=== PATIENT | female | born 1935 | race Caucasian/White ===

== ENCOUNTER 2021-02-23 03:51 | Outpatient (CLI) | payer MEDICARE, BC, SELFPAY ==
--- NOTE | 2021-02-23 | DI.CT_ITS ---
Exam(s) CT LOWER EXTREMITY RT WO EXAM: CT LOWER EXTREMITY RT WO CLINICAL HISTORY: S/P RT TOTAL KNEE ARTHROPLASTY,? QUAD TENDON RUPTURE OR PATELLAR BUTTON DIS. TECHNIQUE: Imaging Protocol: Axial computed tomography images with coronal and sagittal reformatted images were created and reviewed. COMPARISON: CR XR KNEE STANDING ALIGNMENT AP LAT SKYLINE RIGHT from 12/20/2020 CR XR KNEE STANDING ALIGNMENT AP LAT SKYLINE RIGHT from 12/20/2020 FINDINGS: The patient has a total knee replacement which causes artifact. This does limit the examination. Bones: The distal femur proximal tibia and fibula appear intact. No lucencies are seen in or about the orthopedic hardware to suggest loosening. There are ossified density seen adjacent to the latera l femur. The largest fragment measures 2 x 0.7 cm. There is some irregularity of the cortex of the superior and lateral patella. This may be the donor site. Bony alignment is satisfactory. No cellu litic or osteomyelitic changes are identified. No lytic or sclerotic lesions are identified. Soft Tissues: The quadriceps tendon appears to be thickened. A partial tear, however cannot be excl uded. Atherosclerosis. IMPRESSION: 1. Suboptimal examination due to artifact from the patient's total knee replacement. 2. Densities adjacent to the lateral femur. These may be fracture fragments. There is some irregula rity of the cortex of the superior lateral patella. This may be the donor site for the fragments. 3. Thickening of the quadriceps tendon. A partial tear cannot be excluded. RADIATION DOSE DELIVERED: 464.95mGy.cm Total DLP 464.95mGy.cm Total DLP DATA REPOSITORY: All CT scans at this facility are submitted to the National Radiology Data Registry (NRDR) Dose Index Registry (DIR) with the [employer] ([employer]). RADIATION OPTIMIZATION: All CT scans at this facility use at least one of these dose optimization te chniques: automated exposure control; mA and/or kV adjustment per patient size (includes targeted exa ms where dose is matched to clinical indication); or iterative reconstruction.
== END 2021-02-23 04:11 ==
PROVIDERS: PCP Family Medicine; Visit Provider Orthopaedic Surgery
DX: S86.911A Strain of unspecified muscle(s) and tendon(s) at lower leg level, right leg, initial encounter; Z96.651 Presence of right artificial knee joint; X58.XXXA Exposure to other specified factors, initial encounter
CPT/HCPCS: 73700

== ENCOUNTER 2021-03-27 00:42 | Outpatient (CLI) | payer MEDICARE, BC, SELFPAY ==
--- OUTSIDE RECORDS SUMMARY | 2021-03-27 00:47 | XMS_ITS ---
:1935 Author Care Team Providers Name Role Phone NIK ENRIQUEZ RN Care Manager Unavailable JUNITO HOLLIDAY Primary Care Provider [phone] AUGUST HOSKINS MD General Surgeon [phone] CHRISTIE LARSON MD General Surgeon [phone] ANNIE GREEN MD Watch [employer] [phone] Allergies Code Code System Name Reaction Severity Status Onset 2670 RxNorm Codeine ? ? Active 11/17/2017 14122 RxNorm Lisinopril Cough ? Active 8 736281 RxNorm Vicodin Edema ? Active 11/17/2017 5489 RxNorm Hydrocodone Edema ? Active ? 28184 RxNorm Tramadol Diarrhea ? Active ? Notes: no seafood or contrast al lergy Medications Name Status Start Date Stop Date ? ? acetaminophen 300 mg-codeine 30 mg tablet Completed ? 11/21/2020 Take 1 tablet 4 times a day by oral route as needed for 30 days . acetaminophen 325 mg tablet Completed 05/31/202011/04 Take 650 mg every 6 hours by oral route as needed. acetaminophen 500 mg tablet Completed ? 12/06 Take 2 tablets every 8 hours by oral route. amlodipine 5 mg tablet Active 01/02/2021 Not avail able 1 (one) Tablet: daily amoxicillin 875 mg tablet Completed 10/10/20162016 1 (one) Tablet: bid - twice daily Antacid Anti-Gas 200 mg-200 mg-20 mg/5 mL oral suspension Comple taylor 07/21/2019 07/03/2020 Take 30 mL every 6 hours by oral route as needed. Anusol-HC 25 mg rectal suppository Completed 01/02/2016 02/12/2016 1 (one) Suppository: See comments aspirin 81 mg chewable tablet Active 12/29/2020 No t available Chew 1 tablet every day by oral route. atorvastatin 40 mg tablet Completed 01/25/20192018 Take 40 mg every 24 hours by oral route. azithromycin 500 mg tablet Completed ? 01/20 Bactrim DS 800 mg-160 mg tablet Completed 08/22/2011 08/22/2011 1 Tablet: two times daily [place] Montes U-100 Insulin 100 unit/mL (3 mL) subcutaneo us Active 12/29/2020 Not available Inject 18 units every day by subcutaneous route in the evening. BD Ultra-Fine Asia Pen Needle 32 Completed ? 03/13/2019 gauge x 5/32 bisoprolol fumarate 5 mg tablet Completed 07/02/2013 07/16/2013 1 Tablet: daily a week before and after surgery. Blood Glucose Test strips Active ? Not av ailable Take 1 strip twice a day by miscell. route. Byetta 5 mcg/dose (250 mcg/mL)1.2 Active ? Not available mL subcutaneous pen injector carvedilol 3.125 mg tablet Completed 01/25/201903/13 Take 3.125 mg twice a day by oral route. carvedilol 6.25 mg tablet Active 12/29/2020 Not av ailable 1 tablet every day by oral route. cefpodoxime 200 mg tablet Completed 12/29/20202020 Take 1 tablet twice a day by oral route for 7 days. cephalexin 500 mg capsule Completed ? 2017 cholestyramine (with sugar) 4 gram Completed ? 01/20/2018 powder for susp in a packet Cinnamon 500 mg capsule Completed ? 11/22/19 Take 1 capsule twice a day by oral route. cinnamon bark Completed ? 11/22/2020 500 mg ciprofloxacin 250 mg tablet Completed ? 08/2019 ciprofloxacin 500 mg tablet Completed ? 03/09 coenzyme Q10 Completed ? 11/22/2020 10 mg Colace 100 mg capsule Completed 01/25/2019 03/13/2019 Take 100 mg twice a day by oral route. Cranberry Concentrate 500 mg capsule Completed 09/11/2016 02/20/2017 1 (one) Milligram Milligram: daily cyanocobalamin (vit B-12) 500 mcg chewable tablet Active 12/29/2020 Not available Take 1 tablet every day by oral route for 30 days. cyanocobalamin (vit B-12) 500 mcg tablet Completed ? 02/12/2021 TAKE 1 TABLET BY MOUTH DAILY cyanocobalamin (vitamin B-12) 1,000 mcg capsule Completed 11/21/2020 11/21/2020 Take by oral route. dexamethasone 4 mg tablet Completed 05/02/20162015 Tablet: qd - daily Dificid 200 mg tablet Completed 07/30/2016 08/09/2016 1 (one) Tablet: bid - twice daily Ecotrin Low Strength 81 mg tablet,enteric coated Completed 07/21/2019 11/21/2020 Take 81 mg every day by oral route. Enteric Coated Eliquis 2.5 mg tablet Completed ? 12/29/2020 Take 1 tablet twice a day by oral route. enoxaparin 100 mg/mL subcutaneous syringe Completed 201608/15/2016 1 (one) Milliliter: bid - twice daily Euthyrox 112 mcg tablet Completed ? 05/31/20 20 ferrous sulfate 324 mg (65 mg iron) tablet,delayed release Activ e 12/29/2020 Not available Take 2 tablets 3 times a week by oral route. ferrous sulfate 325 mg (65 mg iron) tablet Completed ? 02/21/2020 Using just Chlorophyll QOD because couldn't tolerate this. ferrous sulfate 325 mg (65 mg iron) tablet,delayed release Compl eted 12/18/2016 06/16/2017 1 (one) Tablet Tablet: qd - daily Flonase 50 mcg/actuation nasal spray,suspension Completed 07/01/2013 07/01/2013 1-2 Puff(s): daily to QoD in each nostril Florastor 250 mg capsule Active 12/29/2020 Not jak ilable Take 1 capsule every day by oral route. folic acid 1 mg tablet Active ? Not avail able TAKE 1 TABLET BY MOUTH DAILY furosemide 20 mg tablet Completed ? 09/28/19 20 gabapentin 100 mg capsule Completed 11/21/20202020 1 capsule po in AM and 3 caps in the evening and at HS gabapentin 300 mg capsule Completed ? 2020 glimepiride 2 mg tablet Completed 09/17/2017 09/25/19 18 1 (one) Tablet: with first meal of the day Hyalgan 10 mg/mL intra-articular syringe Completed ? 01/20/2018 Inject 2.5 mL by intra-articular route for 35 days. hydrochlorothiazide 25 mg tablet Completed ? 12/29/2020 TAKE 1 TABLET BY MOUTH EVERY MORNING hydrocodone 10 mg-acetaminophen Completed ? 01/25/2019 325 mg tablet hydrocodone 5 mg-acetaminophen 325 mg tablet Completed 06/201310/16/2012 2 (two) Tablet: every four to six hours as needed hydroxyzine HCl 10 mg tablet Active 12/29/2020 Not available Take 1 tablet twice a day by oral route as needed. hydroxyzine HCl 25 mg tablet Completed ? 1 daily Hyzaar 100 mg-25 mg tablet Completed 11/21/201505/06 1 (one) Tablet: daily ibuprofen 600 mg tablet Completed 04/12/2014 02/12/20 16 1 (one) Tablet Tablet: bid - twice daily indomethacin 25 mg capsule Completed ? 07/21 Klor-Con M10 mEq tablet,extended release Completed 016 05/06/2016 1 (one) Tablet: bid - twice daily or as directed later potassium chloride ER 20 mEq Active ? Not available tablet,extended release(part/cryst) lactulose 10 gram/15 mL oral solution Active 01/18/2021 Not available Take 15 mL every day by oral route. lancets Completed ? 11/21/2020 E11.65 1 new lancet to use 3 times ajit Garcia for generic or whatever patient's insurance will cover levothyroxine 100 mcg tablet Active ? Not available Take 1 tablet every day by oral route for 90 days. levothyroxine 150 mcg tablet Completed ? levothyroxine 200 mcg tablet Completed ? 12/2017 TAKE ONE (1) TABLET ONCE A DAY levothyroxine 75 mcg tablet Completed 12/29/202002/04 Take 1 tablet every day by oral route. Levoxyl 88 mcg tablet Completed 01/25/2019 03/13/2019 Take 88 micrograms every day by oral route. magnesium 400 mg (as magnesium oxide) tablet Completed ? 11/21/2020 Take 2 tablets every day by oral route. meloxicam 7.5 mg tablet Completed ? 02/21/20 20 metformin 1,000 mg tablet Active ? Not av ailable metformin ER 500 mg tablet,extended release 24 hr Active ? Not available TAKE 1 TABLET BY MOUTH DAILY Miralax 17 gram oral powder packet Completed 01/25/2019 02/09/2019 Take 17 g every 24 hours by oral route. Miralax 17 gram/dose oral powder Active 12/29/2020 Not available Take 17 g twice a day by oral route as needed. Nexium 40 mg capsule,delayed release Completed 07/01/2013 07/01/[address]: daily nystatin (bulk) 10 billion unit powder Completed ? 12/29/2020 apply to abdominal fold every 8 hours as needed nystatin 100,000 unit/gram topical cream Active 021 Not available Apply 1 application twice a day by topical route. nystatin 100,000 unit/gram topical ointment Completed 08/200901/04/2010 1 (one) Applicator(s): two times daily, as needed Nystop 100,000 unit/gram topical powder Completed 01/26/20 19 02/09/2019 Apply 1 application 3 times a day by topical route. apply to groin region omeprazole 20 mg capsule,delayed release Completed ? 12/29/2020 Take 1 capsule every day by oral route. omeprazole 40 mg capsule,delayed release Active 021 Not available Take 1 capsule every day by oral route. ondansetron 4 mg disintegrating tablet Completed 0 02/21/2020 Take 1 tablet 3 times a day by oral route as needed for 3 days. ondansetron HCl 8 mg tablet Completed 09/11/201602/06 half - 1 Tablet: every six hours, as needed nausea oxycodone 10 mg tablet Completed ? 0 oxycodone 5 mg capsule Completed ? 9 Take 1 capsule every 6 hours by oral route as needed for 10 day s. oxycodone 5 mg tablet Active ? Not availa ble Take 1 tablet every 6 hours by oral route for 28 days. pantoprazole 40 mg tablet,delayed release Completed 201505/28/2016 1 (one) Tablet: daily Prilosec OTC 20 mg tablet,delayed release Completed 200901/04/2010 1 (one) Tablet DR: as needed Probiotic Completed ? 12/29/2020 1 tab daily promethazine 25 mg tablet Active ? Not av ailable quinine 324 mg capsule Completed 11/21/2015 6 1 (one) Capsule: qd - daily ranitidine 300 mg capsule Completed 11/21/20152015 1 (one) Capsule Capsule: see comments Senna S 50 mg-8.6 mg tablet Completed 12/29/202001/04 Take 1 tablet every day by oral route as needed. sodium polystyrene sulfonate oral Completed ? 09/28/2019 powder spironolactone 25 mg tablet Active ? Not available TAKE 1 TABLET BY MOUTH DAILY spironolactone 50 mg tablet Completed ? 09/05 Take 1 tablet every day by oral route as needed for 90 days. Synthroid 175 mcg tablet Completed 05/14/2016 016 1 (one) Tablet: See comments terconazole 0.8 % vaginal cream Completed 07/21/2019 09/28/2019 Insert 1 applicatorful as needed by vaginal route at bedtime fo r 3 days. tramadol 50 mg tablet Completed ? 12/06/2019 Trulicity 0.75 mg/0.5 mL subcutaneous pen injector Completed ? 07/08/2019 INJECT 0.75MG SUBCUTANEOUSLY EVERY WEEK FOR 28 DAYS Trulicity 1.5 mg/0.5 mL subcutaneous pen injector Active 12/29/2020 Not available 0.5 mL every week by sub-q route. Vancocin 125 mg capsule Completed 10/31/2016 11/21/19 17 1 (one) Capsule: See comments Vesicare 5 mg tablet Completed ? 08/25/2018 Notes: med rec 12/25/20 wmd Problems Name Status Onset Date Source ? Left Sided Cerebral Hemisphere Active 01/29/2019 ? Cerebrovascular Accident Congestive Heart Failure Active 04/05/2019 ? Pruritus of Skin Unknown 04/05/2019 ? Edema, Generalized Unknown 04/05/2019 ? Cirrhosis - Non-alcoholic Active 05/12/2019 ? Type II Diabetes Mellitus Uncontrolled Active 9 ? Acute Nontraumatic Kidney Injury Active 08/01/2019 ? Imaging Result Abnormal Unknown 08/02/2019 ? High Lipase Level in Serum Unknown 08/31/2019 ? Osteoarthritis of Knee Active 12/06/2019 ? Total Knee Replacement Active 11/16/2020 ? Obesity Active 11/21/2020 ? Hepatic Encephalopathy Active 12/26/2020 ? Urinary Tract Infectious Disease Active 12/26/2020 ? Asthenia Active 12/26/2020 ? Non-alcoholic Fatty Liver Active 12/29/2020 ? Acute Urinary Tract Infection Active 12/29/2020 ? Hypothyroidism Active ? History Disorder of Nervous System Due to Type Active ? History 2 Diabetes Mellitus Biotin Deficiency Disease Unknown ? Histor y Bisalbuminemia Unknown ? History Hypo-osmolality and or Hyponatremia Unknown ? History Hypokalemia Active ? History Anemia Due to Chronic Blood Loss Unknown ? History Iron Deficiency Anemia Active ? History Anemia Unknown ? History Thrombocytopenic Disorder Active ? Histor y Disorder of Hematopoietic Structure Unknown ? History Hypertensive Disorder Active ? History Heart Failure Unknown ? History Hemorrhoids Unknown ? 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 History Phlebosclerosis Active ? History Enterocolitis Unknown ? History Cirrhosis of Liver Unknown ? History Gastrointestinal Hemorrhage Active ? Hist ory Urinary Tract Infectious Disease Unknown ? History Prolapse of Female Genital Organs Unknown ? History Idiopathic Osteoarthritis Active ? Histor y Inflammatory Spondylopathy Unknown ? Histo ry Cervical Radiculopathy Unknown ? History Lumbosacral Radiculopathy Active ? Histor y Dupuytren's Disease of Palm Active ? Hist ory Muscle Weakness Unknown ? History Asthenia Unknown ? History Nausea Unknown ? History Mixed Urinary Incontinence Unknown ? Histo ry Ascites Active ? History Blood Chemistry Abnormal Unknown ? History Active Immunization Unknown ? History History of Urinary Tract Infection Unknown ? History Disorder of Skin And/or Subcutaneous Unknown ? History Tissue Therapeutic Drug Monitoring Assay Unknown ? History Acute Pulmonary Embolism Unknown ? History Clinical Finding Unknown ? History Pain in Right Knee Unknown ? History Pain in Right Foot Unknown ? History Bursitis of Left Hip Unknown ? History Clinical Finding Unknown ? History Hyperglycemia Due to Type 2 Diabetes Unknown ? History Mellitus Removal of Device Unknown ? History Finding of Esophagus Unknown ? History Clinical Finding Unknown ? History Procedure by Method Unknown ? History Cramp in Lower Limb Associated with Unknown ? History Sleep Procedures Date Name Performed by ? 11/16/2020 Total Knee Replacement Information not a vailable Notes: right 01/23/2018 Port Vascular Access Removal Information not available 11/12/2011 Cholecystectomy Information not avai lable Notes: Laparoscopic with liver bx/inc idental excision lip lz 05/13/2007 Hernia Repair Information not avai lable Notes: incarcerated Umbilical ? Abdominal Paracentesis Information not a vailable Notes: multiple ? Lumbar Spine Surgery Information not jak ilable Notes: L2-L5 laminectomy with bilater al microforaminectomy 02/26/2019 XR, Knee, 4 or [facility] [address] [place] [address] ( (Work Place) 04/22/2019 Electrocardiogram [facility] [address] [place] [address] (Work Place) 04/26/2019 US, Duplex, Venous, Lower Extremity, [facility] (Internal) Unilateral [address] [place] [address] (Work Place) 04/29/2019 US, Duplex, Venous, Lower Extremity, [facility] (Internal) Unilateral [address] [place] [address] (Work Place) 12/31/2019 CT, Abdomen + Pelvis, W/ Contrast [facility] (Internal) [address] [place] [address] (Work Place) 05/31/2020 NM, Myocardial Perfusion Scan, Multiple [facility] (Internal) [address] [place] [address] (Work Place) 05/31/2020 US, Echocardiogram, Transthoracic, [facility] (Internal) Complete [address] [place] [address] (Work Place) 07/03/2020 Electrocardiogram [facility] ([facility]) [address] [place] [address] (Work Place) 07/03/2020 Electrocardiogram [facility] [address] [place] [address] (Work Place) Results Lab Results Date Name Specimen Result Interpretation Description Value Range Status Address ? 01/19/2021 Urinalysis, UR ? UA-color yellow pale Final [place] Dipstick, yellow [facility] (Internal) : [address] ? ? UR ABNOR UA-appear cloudy clear Final [facility] L ab (Internal) : [address] ? ? UR ? UA-spec 1.015 1.003-1.[address] L ab (Internal) : [address], [place] ? ? UR ? UA-pH 7.5 [pH] 4.6-8.0 Final [place] [pH] [facility] [place] [address] ? ? UR ABNOR UA-leuk large negative Final [facility] ab (Internal) : [address] ? ? UR ? UA-nitrite negative negative Final [place] [facility] [place] [address] ? ? UR ? UA-prot negative negative Final [facility] ab (Internal) : [address] ? ? UR ? UA-gluc negative negative Final [facility] (Internal) : [address] ? ? UR ? UA-ketone negative negative Final No [place]th [facility] [place] : [address] ? ? UR ? UA-urobil normal normal Final [facility] ab (Internal) : [address] ? ? UR ? UA-bili negative negative Final [facility] ab (Internal) : [address] ? ? UR ABNOR UA-blood trace negative Final [facility] ab (Internal) : [address] t 01/19/2021 Urinalysis, UR ABNOR UA-WBC 50-100 0-3 [hpf] [facility] MAL [hpf] Count [facility] ab (Internal) : [address], [place] ? ? UR ABNOR UA-RBC 5-10 0-2 [hpf] Final [facility] [hpf] [facility] [place] [address] ? ? UR ABNOR UA-bacteri moderate none seen Final [facility] a [hpf] [hpf] [facility] [place] [place] [address] [place] ? ? UR ABNOR UA-epithel few [hpf] none seen Final [facility] ial [hpf] [facility] : [address] ? ? UR ? UA-mucus none seen none seen Final N orth [hpf] [hpf] [facility] [place] : [address] 01/19/2021 Culture ([place] UR ? Final microbiol ? F inal [place] [facility]), Urine ogy Cou ntry results Hospital Lab (Internal) : [address] 01/19/2021 Culture ([place] UR ? Final microbiol ? F inal [place] Count), Urine ogy Cou ntry results Hospital Lab (Internal) : [address] 01/16/2021 Ammonia, QN, S High Marty 32 umol/L 9-30 Earline l [place] Plasma umol/L [facility] (Internal) : [address] 01/16/2021 CMP, Serum or S High g/r 329 mg/dL 74-106 Fin al [place] Plasma mg/dL [facility] (Internal) : [address] ? ? S ? Bun 13 mg/dL 7-17 Final [place] mg/dL [facility] (Internal) : [address] ? ? S ? Crea 0.90 0.52-1.04 Final [place] mg/dL mg/dL [facility] (Internal) : [address] ? ? S ? Ca 9.1 mg/dL 8.4-10.2 Final [facility] mg/dL [facility] (Internal) : [address] ? ? S Low Na 132 137-145 Final [place] mmol/L mmol/L [facility] (Internal) : [address] ? ? S ? K 4.5 3.5-5.1 Final [place] mmol/L mmol/L [facility] (Internal) : [address] ? ? S ? Cl 99 mmol/L 98-107 Final [place] mmol/L [facility] (Internal) : [address] ? ? S ? Tco2 24.0 22.0-30.0 Final [place] mmol/L mmol/L [facility] (Internal) : [address] ? ? S ? Tp 6.9 g/dL 6.3-8.2 Final [facility] g/dL [facility] (Internal) : [address] ? ? S Low Alb 3.3 g/dL 3.5-5.0 Final [facility] g/dL [facility] (Internal) : [address] ? ? S ? Tbil 1.0 mg/dL 0.2-1.3 Final [place] mg/dL [facility] ab (Internal) : [address] ? ? S ? Alp 125 U/L 38-126 Final [place] U/L [facility] ab (Internal) : [address] ? ? S ? Alt (Sgpt) 22 U/L 9-52 U/L Final [facility] L ab (Internal) : [address] ? ? S High Ast (Sgot) 39 U/L 14-36 U/L Final No rth [facility] L ab (Internal) : [address] t 01/15/2021 CBC W/ Auto BLD Low Wbc 4.3 5.0-10.0 Final [place] Diff 10*3/uL 10*3/uL [facility] ab (Internal) : [address] ? ? BLD Low Rbc 2.90 4.10-5.30 Final [place] 10*6/uL 10*6/uL [facility] ab (Internal) : [address] ? ? BLD Low Hgb 9.5 g/dL 12.0-16.0 Final [place] g/dL [facility] ab (Internal) : [address] t ? ? BLD Low Hct 29.5 % 37.0-47.0 Final [facility] L ab (Internal) : [address] ? ? BLD High Mcv 101.7 fL 80.0-96.0 Final [facility] L ab (Internal) : [address] ? ? BLD High Mch 32.8 pg 26.0-32.0 Final [place] pg [facility] ab (Internal) : [address] ? ? BLD ? Mchc 32.2 g/dL 31.0-35.[address] [facility] h g/dL [facility] L ab (Internal) : [address] ? ? BLD ? Rdw 13.8 % 11.5-14.5 Final [facility] L ab (Internal) : [address] ? ? BLD Low Plt 61 130-450 Final [place] 10*3/uL 10*3/uL [facility] L ab (Internal) : [address] ? ? BLD ? Anc 2.60 ? Final [place] 10*3/uL [facility] L ab (Internal) : [address] ? ? BLD ? Nlr 2.80 0.00-3.20 Final [facility] L ab (Internal) : [address] ? ? BLD ? Neutro 60.5 % 40.0-75.0 Final [facility] L ab (Internal) : [address] ? ? BLD ? Lymph 21.6 % 20.0-50.0 Final [facility] L ab (Internal) : [address] ? ? BLD High [place] 10.9 % 2.0-10.0 Final [facility] L ab (Internal) : [address] ? ? BLD ? Eos 5.1 % 1.0-6.0 % Final [facility] L ab (Internal) : [address] ? ? BLD High Baso 1.2 % 0.0-1.0 % Final [facility] L ab (Internal) : [address] ? ? BLD ? Ig 0.7 % 0.0-0.9 % Final [facility] L ab (Internal) : [address] 01/15/2021 RBC Morphology, BLD ? Macro occasiona ? F inal [place] Blood [facility] L ab (Internal) : [address] 01/09/2021 EKG Done by Lab ? No ? ? ? [place] observation Count ry recorded. Hospita l Lab (Internal) : [address] 01/01/2021 Ammonia, QN, S ? Marty 28 umol/L 9-30 Earline l [place] Plasma umol/L [facility] L ab (Internal) : [address] 01/01/2021 CMP, Serum or S High g/r 192 mg/dL 74-106 Fin al [place] Plasma mg/dL [facility] L ab (Internal) : [address] ? ? S ? Bun 14 mg/dL 7-17 Final [place] mg/dL [facility] (Internal) : [address] ? ? S ? Crea 0.90 0.52-1.04 Final [place] mg/dL mg/dL [facility] (Internal) : [address] ? ? S ? Ca 8.7 mg/dL 8.4-10.2 Final [place] mg/dL [facility] (Internal) : [address] ? ? S Low Na 134 137-145 Final [place] mmol/L mmol/L [facility] (Internal) : [address] ? ? S ? K 4.5 3.5-5.1 Final [place] mmol/L mmol/L [facility] (Internal) : [address] ? ? S ? Cl 102 98-107 Final [place] mmol/L mmol/L [facility] (Internal) : [address] ? ? S ? Tco2 25.0 22.0-30.0 Final [place] mmol/L mmol/L [facility] (Internal) : [address] ? ? S ? Tp 7.1 g/dL 6.3-8.2 Final [place] g/dL [facility] (Internal) : [address] ? ? S Low Alb 3.0 g/dL 3.5-5.0 Final [place] g/dL [facility] (Internal) : [address] ? ? S ? Tbil 1.0 mg/dL 0.2-1.3 Final [place] mg/dL [facility] (Internal) : [address] ? ? S High Alp 149 U/L 38-126 Final [place] U/L [facility] (Internal) : [address] ? ? S ? Alt (Sgpt) 33 U/L 9-52 U/L Final Nor th [facility] (Internal) : [address] ? ? S High Ast (Sgot) 80 U/L 14-36 U/L Final No rth [facility] (Internal) : [address] 12/28/2020 Cbc BLD Low Wbc 4.2 5.0-10.0 Final Nort h 10*3/uL 10*3/uL [facility] L ab (Internal) : [address] ? ? BLD Low Rbc 2.59 4.10-5.30 Final [place] 10*6/uL 10*6/uL [facility] L ab (Internal) : [address] ? ? BLD Low Hgb 8.6 g/dL 12.0-16.0 Final [place] g/dL [facility] ab (Internal) : [address] t ? ? BLD Low Hct 26.8 % 37.0-47.0 Final [facility] L ab (Internal) : [address] ? ? BLD High Mcv 103.5 fL 80.0-96.0 Final [facility] L ab (Internal) : [address] ? ? BLD High Mch 33.2 pg 26.0-32.0 Final [place] pg [facility] L ab (Internal) : [address] ? ? BLD ? Mchc 32.1 g/dL 31.0-35.0 Final Nort h g/dL [facility] L ab (Internal) : [address] ? ? BLD ? Rdw 13.8 % 11.5-14.5 Final [facility] L ab (Internal) : [address] ? ? BLD Low Plt 57 130-450 Final [place] 10*3/uL 10*3/uL [facility] L ab (Internal) : [address] ? ? BLD ? Anc 2.21 ? Final [place] 10*3/uL [facility] L ab (Internal) : [address] 12/28/2020 BMP, Serum or S High g/r 171 mg/dL 74-106 Fin al [place] Plasma mg/dL [facility] L ab (Internal) : [address] ? ? S ? Bun 14 mg/dL 7-17 Final North mg/dL [facility] L ab (Internal) : [address] ? ? S ? Crea 0.90 0.52-1.04 Final [place] mg/dL mg/dL [facility] L ab (Internal) : [address] ? ? S Low Ca 8.2 mg/dL 8.4-10.2 Final [place] mg/dL [facility] L ab (Internal) : [address] ? ? S Low Na 131 137-145 Final [place] mmol/L mmol/L [facility] L ab (Internal) : [address] ? ? S ? K 4.1 3.5-5.1 Final [place] mmol/L mmol/L [facility] L ab (Internal) : [address] ? ? S ? Cl 99 mmol/L 98-107 Final [place] mmol/L [facility] L ab (Internal) : [address] ? ? S ? Tco2 25.0 22.0-30.0 Final [place] mmol/L mmol/L [facility] L ab (Internal) : [address] t 12/28/2020 Hepatic S ? Tbil 0.9 mg/dL 0.2-1.3 Final N orth Function Panel, mg/dL [facility] L ab (Internal) : [address] ? ? S ? Dbil 0.3 mg/dL 0.0-0.3 Final [place] mg/dL [facility] L ab (Internal) : [address] t ? ? S High Alp 129 U/L 38-126 Final [place] U/L [facility] L ab (Internal) : [address] ? ? S ? Alt (Sgpt) 17 U/L 9-52 U/L Final [facility] L ab (Internal) : [address] ? ? S ? Ast (Sgot) 36 U/L 14-36 U/L Final No rth [facility] L ab (Internal) : [address] ? ? S High Ggt 157 U/L 12-43 U/L Final [facility] L ab (Internal) : [address] ? ? S Low Tp 6.2 g/dL 6.3-8.2 Final [place] g/dL [facility] L ab (Internal) : [address] ? ? S Low Alb 2.7 g/dL 3.5-5.0 Final [place] g/dL [facility] L ab (Internal) : [address] 12/28/2020 Iron, Serum SERUM Low Iron 32 ug/dL 37-170 Final North ug/dL [facility] L ab (Internal) : [address] 12/28/2020 Ferritin, Serum S ? Ferr 49 NG/mL 11-264 Fi nal [place] or Plasma NG/mL [facility] L ab (Internal) : [address] [facility] 12/28/2020 Vitamin B12, S High Vit B12 >1000.0 239.0-931 F inal [place] Serum pg/mL .0 pg/mL [facility] [address] [facility] Folate, Serum S ? Folate >17.00 2.76-20.0 Fi nal [place] NG/mL 0 NG/mL [facility] (Internal) : [address] [facility] 12/28[facility]2020 Glucose, Serum S High g/r 325 mg/dL 74-106 Fi nal [place] or Plasma mg/dL [facility] L [facility] (Internal) : [address] [facility] 12/27[facility]2020 Ammonia, QN, S High Marty 37 umol/L 9-30 Earline l [place] Plasma umol/L [facility] L ab (Internal) : [address] 12/27/2020 Cbc BLD Low Wbc 4.3 5.0-10.0 Final Nort h 10*3/uL 10*3/uL [facility] L ab (Internal) : [address] ? ? BLD Low Rbc 2.78 4.10-5.30 Final [place] 10*6/uL 10*6/uL [facility] L ab (Internal) : [address] ? ? BLD Low Hgb 9.1 g/dL 12.0-16.0 Final [place] g/dL [facility] L ab (Internal) : [address] ? ? BLD Low Hct 28.7 % 37.0-47.0 Final [place] % [facility] L ab (Internal) : [address] ? ? BLD High Mcv 103.2 fL 80.0-96.0 Final [place] fL [facility] L ab (Internal) : [address] ? ? BLD High Mch 32.7 pg 26.0-32.0 Final North pg [facility] L ab (Internal) : [address] ? ? BLD ? Mchc 31.7 g/dL 31.0-35.0 Final Nort h g/dL [facility] L ab (Internal) : [address] ? ? BLD ? Rdw 13.5 % 11.5-14.5 Final North % [facility] L ab (Internal) : [address] ? ? BLD Low Plt 65 130-450 Final [place] 10*3/uL 10*3/uL [facility] L ab (Internal) : [address] ? ? BLD ? Anc 2.42 ? Final North 10*3/uL [facility] L ab (Internal) : [address] 12/27/2020 BMP, Serum or S High g/r 187 mg/dL 74-106 Fin al [place] Plasma mg/dL [facility] L ab (Internal) : [address] ? ? S ? Bun 14 mg/dL 7-17 Final [place] mg/dL [facility] L [facility] (Internal) : [address] ? ? S ? Crea 0.90 0.52-1.04 Final [place] mg/dL mg/dL [facility] L ab (Internal) : [address] ? ? S Low Ca 8.2 mg/dL 8.4-10.2 Final [place] mg/dL [facility] L ab (Internal) : [address] ? ? S Low Na 130 137-145 Final [place] mmol/L mmol/L [facility] L ab (Internal) : [address] ? ? S ? K 3.9 3.5-5.1 Final [place] mmol/L mmol/L [facility] L ab (Internal) : [address] ? ? S ? Cl 98 mmol/L 98-107 Final [place] mmol/L [facility] L ab (Internal) : [address] ? ? S ? Tco2 24.0 22.0-30.0 Final [place] mmol/L mmol/L [facility] L ab (Internal) : [address] 12/27/2020 Hepatic S ? Tbil 1.1 mg/dL 0.2-1.3 Final N orth Function Panel, mg/dL [facility] L ab (Internal) : [address] ? ? S ? Dbil 0.3 mg/dL 0.0-0.3 Final [place] mg/dL [facility] L [facility] (Internal) : [address] ? ? S High Alp 144 U/L 38-126 Final [place] U/L [facility] L ab (Internal) : [address] ? ? S ? Alt (Sgpt) 17 U/L 9-52 U/L Final [facility] L ab (Internal) : [address] ? ? S ? Ast (Sgot) 36 U/L 14-36 U/L Final No rth [facility] L ab (Internal) : [address] ? ? S High Ggt 165 U/L 12-43 U/L Final [facility] L ab (Internal) : [address] ? ? S ? Tp 6.5 g/dL 6.3-8.2 Final [place] g/dL [facility] L ab (Internal) : [address] ? ? S Low Alb 2.8 g/dL 3.5-5.0 Final [place] g/dL [facility] L ab (Internal) : [address] 12/27/2020 Prothrombin BLD High Pt 13.7 S 9.1-11.7 Final [place] Time [facility] L ab (Internal) : [address] ? ? BLD ? Inr 1.4 ? Final [facility] ab (Internal) : [address] 12/26/2020 Cbc BLD ? Wbc 5.0 5.0-10.0 Final Nort h 10*3/uL 10*3/uL [facility] L ab (Internal) : [address] ? ? BLD Low Rbc 2.74 4.10-5.30 Final [place] 10*6/uL 10*6/uL [facility] L ab (Internal) : [address] ? ? BLD Low Hgb 9.1 g/dL 12.0-16.0 Final [place] g/dL [facility] L ab (Internal) : [address] ? ? BLD Low Hct 28.5 % 37.0-47.0 Final [facility] L ab (Internal) : [address] ? ? BLD High Mcv 104.0 fL 80.0-96.0 Final [facility] L ab (Internal) : [address] ? ? BLD High Mch 33.2 pg 26.0-32.0 Final [place] pg [facility] L ab (Internal) : [address] ? ? BLD ? Mchc 31.9 g/dL 31.0-35.0 Final Nort h g/dL [facility] L ab (Internal) : [address] ? ? BLD ? Rdw 13.9 % 11.5-14.5 Final [facility] L ab (Internal) : [address] ? ? BLD Low Plt 75 130-450 Final [place] 10*3/uL 10*3/uL [facility] L ab (Internal) : [address] ? ? BLD ? Anc 2.92 ? Final [place] 10*3/uL [facility] L ab (Internal) : [address] 12/26/2020 Ammonia, QN, S High Marty 50 umol/L 9-30 Earline l [place] Plasma umol/L [facility] L ab (Internal) : [address] 12/26/2020 BMP, Serum or S High g/r 185 mg/dL 74-106 Fin al [place] Plasma mg/dL [facility] L ab (Internal) : [address] ? ? S ? Bun 17 mg/dL 7-17 Final North mg/dL [facility] L ab (Internal) : [address] ? ? S ? Crea 0.90 0.52-1.04 Final [place] mg/dL mg/dL [facility] L ab (Internal) : [address] ? ? S ? Ca 8.5 mg/dL 8.4-10.2 Final North mg/dL [facility] L ab (Internal) : [address] t ? ? S Low Na 133 137-145 Final [place] mmol/L mmol/L [facility] L ab (Internal) : [address] ? ? S ? K 4.0 3.5-5.1 Final [place] mmol/L mmol/L [facility] L ab (Internal) : [address] ? ? S ? Cl 100 98-107 Final [place] mmol/L mmol/L [facility] L ab (Internal) : [address] t ? ? S ? Tco2 26.0 22.0-30.0 Final [place] mmol/L mmol/L [facility] L ab (Internal) : [address] t 12/26/2020 Hepatic S ? Tbil 1.1 mg/dL 0.2-1.3 Final N orth Function Panel, mg/dL [facility] L ab (Internal) : [address] t ? ? S High Dbil 0.4 mg/dL 0.0-0.3 Final [place] mg/dL [facility] L ab (Internal) : [address] t ? ? S High Alp 144 U/L 38-126 Final [place] U/L [facility] L ab (Internal) : [address] ? ? S ? Alt (Sgpt) 17 U/L 9-52 U/L Final [facility] L ab (Internal) : [address] ? ? S ? Ast (Sgot) 36 U/L 14-36 U/L Final No rth [facility] L ab (Internal) : [address] ? ? S High Ggt 166 U/L 12-43 U/L Final [facility] L ab (Internal) : [address] ? ? S ? Tp 6.6 g/dL 6.3-8.2 Final [place] g/dL [facility] L ab (Internal) : [address] ? ? S Low Alb 2.9 g/dL 3.5-5.0 Final [place] g/dL [facility] (Internal) : [address] 12/26/2020 Prothrombin BLD High Pt 13.6 S 9.1-11.7 Final [facility] L ab (Internal) : [address] ? ? BLD ? Inr 1.3 ? Final [facility] ab (Internal) : [address] 12/25/2020 Prothrombin BLD High Pt 13.6 S 9.1-11.7 Final [facility] L ab (Internal) : [address] ? ? BLD ? Inr 1.3 ? Final [facility] L ab (Internal) : [address] 12/25/2020 Respiratory FLUID ? Final microbiol ? Final [place] Virus Panel ogy Count ry results Hospital Lab (Internal) : [address] 12/07/2020 CBC W/ Auto BLD ? Wbc 8.1 5.0-10.0 Final [place] Diff 10*3/uL 10*3/uL [facility] L ab (Internal) : [address] ? ? BLD Low Rbc 2.78 4.10-5.30 Final [place] 10*6/uL 10*6/uL [facility] L ab (Internal) : [address] ? ? BLD Low Hgb 9.5 g/dL 12.0-16.0 Final [place] g/dL [facility] L ab (Internal) : [address] ? ? BLD Low Hct 29.4 % 37.0-47.0 Final [facility] L ab (Internal) : [address] ? ? BLD High Mcv 105.8 fL 80.0-96.0 Final [facility] L ab (Internal) : [address] ? ? BLD High Mch 34.2 pg 26.0-32.0 Final [facility] L ab (Internal) : [address] ? ? BLD ? Mchc 32.3 g/dL 31.0-35.0 Final Nort h g/dL [facility] L ab (Internal) : [address] ? ? BLD ? Rdw 14.3 % 11.5-14.5 Final [facility] L ab (Internal) : [address] ? ? BLD Low Plt 117 130-450 Final [place] 10*3/uL 10*3/uL [facility] L ab (Internal) : [address] ? ? BLD ? Anc 5.08 ? Final [place] 10*3/uL [facility] L ab (Internal) : [address] ? ? BLD High Nlr 3.65 0.00-3.20 Final [facility] L ab (Internal) : [address] ? ? BLD ? Neutro 63.1 % 40.0-75.0 Final [facility] L ab (Internal) : [address] ? ? BLD Low Lymph 17.3 % 20.0-50.0 Final [facility] L ab (Internal) : [address] ? ? BLD High [place] 10.2 % 2.0-10.0 Final [facility] L ab (Internal) : [address] ? ? BLD High Eos 6.3 % 1.0-6.0 % Final [facility] L ab (Internal) : [address] ? ? BLD High Baso 1.7 % 0.0-1.0 % Final [facility] ab (Internal) : [address] ? ? BLD High Ig 1.4 % 0.0-0.9 % Final [facility] ab (Internal) : [address] 12/07/2020 RBC Morphology, BLD ? Macro small ? Earline l [facility] L ab (Internal) : [address] ? ? BLD ? Polychrom occasiona ? Final [facility] L ab (Internal) : [address] 10/04/2020 Renal Function S High g/r 218 mg/dL 74-106 Fi nal [place] Panel, Serum mg/dL Coun [facility] L ab (Internal) : [address] t ? ? S High Bun 22 mg/dL 7-17 Final [place] mg/dL [facility] L ab (Internal) : [address] ? ? S High Crea 1.10 0.52-1.04 Final [place] mg/dL mg/dL [facility] L ab (Internal) : [address] ? ? S ? Ca 8.6 mg/dL 8.4-10.2 Final [place] mg/dL [facility] L ab (Internal) : [address] ? ? S ? Phos 3.0 mg/dL 2.5-4.5 Final [place] mg/dL [facility] L ab (Internal) : [address] ? ? S Low Na 133 137-145 Final [place] mmol/L mmol/L [facility] L ab (Internal) : [address] ? ? S High K 5.6 3.5-5.1 Final [place] mmol/L mmol/L [facility] L ab (Internal) : [address] ? ? S ? Cl 103 98-107 Final [place] mmol/L mmol/L [facility] L ab (Internal) : [address] ? ? S ? Tco2 22.0 22.0-30.0 Final [place] mmol/L mmol/L [facility] L ab (Internal) : [address] ? ? S Low Alb 3.1 g/dL 3.5-5.0 Final [place] g/dL [facility] L ab (Internal) : [address] ? ? S Low GFR (Calc) 47 >89 Final [facility] L ab (Internal) : [address] 09/28/2020 CBC W/ Auto BLD Low Wbc 3.1 5.0-10.0 Final [place] Diff 10*3/uL 10*3/uL [facility] L ab (Internal) : [address] t ? ? BLD Low Rbc 3.22 4.10-5.30 Final North 10*6/uL 10*6/uL [facility] L ab (Internal) : [address] ? ? BLD Low Hgb 10.8 g/dL 12.0-16.0 Final Nort h g/dL [facility] L ab (Internal) : [address], [place] ? ? BLD Low Hct 33.5 % 37.0-47.0 Final [facility] L ab (Internal) : [address] ? ? BLD High Mcv 104.0 fL 80.0-96.0 Final [facility] L ab (Internal) : [address] ? ? BLD High Mch 33.5 pg 26.0-32.0 Final [facility] L ab (Internal) : [address] ? ? BLD ? Mchc 32.2 g/dL 31.0-35.0 Final Nort h g/dL [facility] L ab (Internal) : [address] ? ? BLD ? Rdw 13.0 % 11.5-14.5 Final [facility] L ab (Internal) : [address] ? ? BLD Low Plt 53 130-450 Final [place] 10*3/uL 10*3/uL [facility] L ab (Internal) : [address] ? ? BLD ? Anc 1.74 ? Final [place] 10*3/uL [facility] L ab (Internal) : [address] ? ? BLD ? Nlr 2.32 0.00-3.20 Final [facility] L ab (Internal) : [address] ? ? BLD ? Neutro 56.0 % 40.0-75.0 Final [facility] L ab (Internal) : [address] ? ? BLD ? Lymph 24.1 % 20.0-50.0 Final [facility] L ab (Internal) : [address] ? ? BLD ? [place] 7.4 % 2.0-10.0 Final [facility] L ab (Internal) : [address] ? ? BLD High Eos 9.6 % 1.0-6.0 % Final [facility] L ab (Internal) : [address] ? ? BLD High Baso 2.3 % 0.0-1.0 % Final [facility] L ab (Internal) : [address] ? ? BLD ? Ig 0.6 % 0.0-0.9 % Final [facility] L ab (Internal) : [address] t 09/28/2020 CMP, Serum or S High g/r 193 mg/dL 74-106 Fin al [place] Plasma mg/dL [facility] L ab (Internal) : [address] ? ? S High Bun 22 mg/dL 7-17 Final North mg/dL [facility] L ab (Internal) : [address] ? ? S High Crea 1.10 0.52-1.04 Final [place] mg/dL mg/dL [facility] L ab (Internal) : [address] ? ? S ? Ca 8.6 mg/dL 8.4-10.2 Final North mg/dL [facility] L ab (Internal) : [address] ? ? S Low Na 134 137-145 Final [place] mmol/L mmol/L [facility] L ab (Internal) : [address] ? ? S High K 5.5 3.5-5.1 Final [place] mmol/L mmol/L [facility] L ab (Internal) : [address] ? ? S ? Cl 103 98-107 Final [place] mmol/L mmol/L [facility] L ab (Internal) : [address] ? ? S ? Tco2 24.0 22.0-30.0 Final North mmol/L mmol/L [facility] L ab (Internal) : [address] ? ? S ? Tp 6.5 g/dL 6.3-8.2 Final [place] g/dL [facility] L ab (Internal) : [address] ? ? S Low Alb 3.2 g/dL 3.5-5.0 Final [place] g/dL [facility] L ab (Internal) : [address] ? ? S ? Tbil 1.3 mg/dL 0.2-1.3 Final North mg/dL [facility] L ab (Internal) : [address] ? ? S High Alp 128 U/L 38-126 Final North U/L [facility] L ab (Internal) : [address] ? ? S ? Alt (Sgpt) 16 U/L 9-52 U/L Final Nor th [facility] L ab (Internal) : [address] ? ? S ? Ast (Sgot) 32 U/L 14-36 U/L Final No rth [facility] L ab (Internal) : [address] 09/28/2020 HbA1C BLD High Ha1C 6.9 % 4.0-6.0 % Final Nor th (Hemoglobin Count ry a1C), Blood Hospi anna Lab (Internal) : [address] 09/28/2020 RBC Morphology, BLD ? Macro small ? Earline l [facility] L ab (Internal) : [address] ? ? BLD ? Stomat rare ? Final [facility] L ab (Internal) : [address] 09/28/2020 Ferritin, Serum S ? Ferr 21 NG/mL 11-264 Fi nal North or Plasma NG/mL [facility] L ab (Internal) : [address] 07/04/2020 EKG Done by Lab ? No ? ? ? North observation Count ry recorded. Hospita l Lab (Internal) : [address] 07/03/2020 CBC W/ Auto BLD Low Wbc 4.5 5.0-10.0 Final [place] Diff 10*3/uL 10*3/uL [facility] L ab (Internal) : [address] ? ? BLD Low Rbc 3.38 4.10-5.30 Final [place] 10*6/uL 10*6/uL [facility] L ab (Internal) : [address] ? ? BLD Low Hgb 11.4 g/dL 12.0-16.0 [facility] L [facility] (Internal[facility] : [address] ? ? BLD Low Hct 36.4 % 37.0-47.0 Final [place] % [facility] L ab (Internal) : [address] ? ? BLD High Mcv 107.7 fL 80.0-96.0 Final [facility] L ab (Internal) : [address] ? ? BLD High Mch 33.7 pg 26.0-32.0 Final [facility] L ab (Internal) : [address] ? ? BLD ? Mchc 31.3 g/dL 31.0-35.0 [facility] L ab (Internal) : [address] ? ? BLD ? Rdw 13.2 % 11.5-14.5 Final [facility] L ab (Internal) : [address] ? ? BLD Low Plt 69 130-450 Final [place] 10*3/uL 10*3/uL [facility] L ab (Internal) : [address] ? ? BLD ? Anc 2.52 ? Final [place] 10*3/uL [facility] L ab (Internal) : [address] ? ? BLD ? Nlr 2.19 0.00-3.20 Final [facility] L ab (Internal) : [address] ? ? BLD ? Neutro 55.9 % 40.0-75.0 Final [facility] L ab (Internal) : [address] ? ? BLD ? Lymph 25.6 % 20.0-50.0 Final [facility] L ab (Internal) : [address] ? ? BLD ? [place] 8.4 % 2.0-10.0 Final [facility] L ab (Internal) : [address] ? ? BLD High Eos 7.6 % 1.0-6.0 % Final [facility] L ab (Internal) : [address] ? ? BLD High Baso 1.8 % 0.0-1.0 % Final [facility] L ab (Internal) : [address] ? ? BLD ? Ig 0.7 % 0.0-0.9 % Final [facility] L ab (Internal) : [address] 07/03/2020 HbA1C BLD High Ha1C 7.0 % 4.0-6.0 % Final Nor th (Hemoglobin Count ry a1C), Blood Hospi anna Lab (Internal) : [address] 07/03/2020 BMP, Serum or S High g/r 189 mg/dL 74-106 Fin al [place] Plasma mg/dL [facility] L ab (Internal) : [address] ? ? S High Bun 23 mg/dL 7-17 Final [place] mg/dL [facility] L ab (Internal) : [address] ? ? S High Crea 1.10 0.52-1.04 Final [place] mg/dL mg/dL [facility] L ab (Internal) : [address] ? ? S ? Ca 9.1 mg/dL 8.4-10.2 Final [place] mg/dL [facility] L ab (Internal) : [address] ? ? S ? Na 139 137-145 Final North mmol/L mmol/L [facility] L ab (Internal) : [address] ? ? S ? K 5.0 3.5-5.1 Final North mmol/L mmol/L [facility] L ab (Internal) : [address] ? ? S ? Cl 104 98-107 Final North mmol/L mmol/L [facility] L ab (Internal) : [address] ? ? S ? Tco2 28.0 22.0-30.0 Final North mmol/L mmol/L [facility] L ab (Internal) : [address] 07/03/2020 Hepatic S ? Tbil 1.1 mg/dL 0.2-1.3 Final N orth Function [facility] [address] ? ? S ? Dbil 0.3 mg/dL 0.0-0.3 Final [place] mg/dL [facility] L ab (Internal) : [address] ? ? S High Alp 128 U/L 38-126 Final [place] U/L [facility] L ab (Internal) : [address] ? ? S ? Alt (Sgpt) 18 U/L 9-52 U/L Final [facility] L ab (Internal) : [address] ? ? S High Ast (Sgot) 38 U/L 14-36 U/L Final No [facility]th [facility] L ab (Internal) : [address] ? ? S High Ggt 186 U/L 12-43 U/L Final [facility] L ab (Internal) : [address] ? ? S ? Tp 6.9 g/dL 6.3-8.2 Final North g/dL [facility] L ab (Internal) : [address] ? ? S Low Alb 3.3 g/dL 3.5-5.0 Final [place] g/dL [facility] L ab (Internal) : [address] 07/03/2020 Lipid Panel, S ? Chol 132 mg/dL 50-200 Earline l [place] Serum mg/dL [facility] L ab (Internal) : [address] ? ? S ? Trig 150 mg/dL 10-150 Final [place] mg/dL [facility] L ab (Internal) : [address] ? ? S ? Hdl 42 mg/dL 40-60 Final [place] mg/dL [facility] L ab (Internal) : [address] ? ? S ? Ldl 60 mg/dL 0-130 Final [place] mg/dL [facility] [place] : [address] [address] 07/03/2020 T4, Free, Serum S ? Ft4 1.89 0.78-2.[address] [facility] NG/dL NG/dL [facility] L ab (Internal) : [address] 07/03/2020 BNP (B-type S ? Nt-probnp 252 pg/mL 0-450 F [facility] [place] Natriuretic pg/mL Count ry Peptide), [facility]one (Inter nal): N-terminal, [address] Fern[address] Immunoassay, Blood 07/03/2020 TSH, Serum or S Low Tsh <0.05 0.47-4.68 Fin al [place] Plasma u[IU]/mL u[IU]/mL [facility] L ab (Internal) : [address] t 07/03/2020 RBC Morphology, BLD ? Macro moderate ? Fi nal [facility] L ab (Internal) : [address] ? ? BLD ? Stomat occasiona ? Final [facility] L ab (Internal) : [address] t 04/03/2020 CBC W/ Auto BLD Low Wbc 4.2 5.0-10.0 Final [place] Diff 10*3/uL 10*3/uL [facility] L ab (Internal) : [address] ? ? BLD Low Rbc 3.40 4.10-5.30 Final [place] 10*6/uL 10*6/uL [facility] L ab (Internal) : [address] ? ? BLD Low Hgb 11.2 g/dL 12.0-16.0 Final Nort h g/dL [facility] L ab (Internal) : [address] ? ? BLD Low Hct 35.3 % 37.0-47.0 Final [facility] L ab (Internal) : [address] t ? ? BLD High Mcv 103.8 fL 80.0-96.0 Final [facility] L ab (Internal) : [address] ? ? BLD High Mch 32.9 pg 26.0-32.0 Final [facility] L ab (Internal) : [address] ? ? BLD ? Mchc 31.7 g/dL 31.0-35.0 Final Nort h g/dL [facility] L ab (Internal) : [address] t ? ? BLD High Rdw 14.6 % 11.5-14.5 Final [facility] L ab (Internal) : [address] t ? ? BLD Low Plt 57 130-450 Final [place] 10*3/uL 10*3/uL [facility] L ab (Internal) : [address] ? ? BLD ? Anc 2.39 ? Final [place] 10*3/uL [facility] L ab (Internal) : [address] ? ? BLD ? Nlr 2.30 0.00-3.20 Final [facility] L ab (Internal) : [address] ? ? BLD ? Neutro 56.6 % 40.0-75.0 Final [facility] L ab (Internal) : [address] ? ? BLD ? Lymph 24.6 % 20.0-50.0 Final [facility] L ab (Internal) : [address] ? ? BLD ? [place] 8.3 % 2.0-10.0 Final [facility] L ab (Internal) : [address] ? ? BLD High Eos 8.3 % 1.0-6.0 % Final [facility] L ab (Internal) : [address] ? ? BLD High Baso 1.7 % 0.0-1.0 % Final [facility] L ab (Internal) : [address] ? ? BLD ? Ig 0.5 % 0.0-0.9 % Final [facility] L ab (Internal) : [address] t 04/03/2020 HbA1C BLD High Ha1C 7.3 % 4.0-6.0 % Final [facility] (Hemoglobin Count ry a1C), Blood Hospi anna Lab (Internal) : [address] 04/03/2020 TSH, Serum or S Low Tsh 0.06 0.47-4.68 [facility] Plasma u[IU]/mL u[IU]/mL [facility] L ab (Internal) : [address] 04/03/2020 Ferritin, Serum S ? Ferr 37 NG/mL 11-264 Fi [facility] or Plasma NG/mL [facility] L ab (Internal) : [address] 04/03/2020 RBC Morphology, BLD ? Macro small ? Earline [facility] Blood [facility] L ab (Internal) : [address] ? ? BLD ? Poik rare ? Final [place] [hpf] [facility] L ab (Internal) : [address] ? ? BLD ? Stomat rare ? Final [facility] L ab (Internal) : [address] t 04/03/2020 Venipuncture Blood ? Location Right ? ? P_nc Primary venous Antecubit Care al [place]: [address], [place] ? ? Blood ? Needle 21g ? ? P_nc Prim yolanda venous Vacutaine Care r [place]: [address], [place] ? ? Blood ? Number of 1 ? ? P_nc P rimary venous Attempts Care [place]: [address], [place] ? ? Blood ? Successful Yes ? ? P_nc Primary venous Care [place]: [address] [facility], [place] ? ? Blood ? Dressing Pressure ? ? P_nc Primary venous Band-aid Care Applied [place]: [address] [facility], [place] ? ? Blood ? Initials GGJ ? ? P_nc Pr imary venous Care [place]: [address] [facility], [place] 01/27/2020 CBC W/ Auto BLD ? Wbc 5.3 5.0-10.0 Final [place] Diff 10*3/uL 10*3/uL [facility] L ab (Internal) : [address] ? ? BLD Low Rbc 3.39 4.10-5.30 Final [place] 10*6/uL 10*6/uL [facility] L ab (Internal) : [address] ? ? BLD Low Hgb 11.0 g/dL 12.0-16.0 Final Nort h g/dL [facility] L ab (Internal) : [address] ? ? BLD Low Hct 33.7 % 37.0-47.0 Final [facility] L ab (Internal) : [address] ? ? BLD High Mcv 99.4 fL 80.0-96.0 Final [facility] L ab (Internal) : [address] ? ? BLD High Mch 32.4 pg 26.0-32.0 Final [facility] L ab (Internal) : [address] t ? ? BLD ? Mchc 32.6 g/dL 31.0-35.0 Final Nort h g/dL [facility] L ab (Internal) : [address] ? ? BLD ? Rdw 13.4 % 11.5-14.5 Final [facility] L ab (Internal) : [address] ? ? BLD Low Plt 61 130-450 Final [place] 10*3/uL 10*3/uL [facility] L ab (Internal) : [address] ? ? BLD ? Anc 3.59 ? Final [place] 10*3/uL [facility] L ab (Internal) : [address] ? ? BLD High Nlr 3.59 0.00-3.20 Final [facility] L ab (Internal) : [address] ? ? BLD ? Neutro 67.4 % 40.0-75.0 Final [facility] L ab (Internal) : [address] ? ? BLD Low Lymph 18.8 % 20.0-50.0 Final [facility] L ab (Internal) : [address] ? ? BLD ? [place] 7.1 % 2.0-10.0 Final [facility] L ab (Internal) : [address] ? ? BLD ? Eos 5.4 % 1.0-6.0 % Final [facility] L ab (Internal) : [address] ? ? BLD ? Baso 0.9 % 0.0-1.0 % Final [facility] L ab (Internal) : [address] ? ? BLD ? Ig 0.4 % 0.0-0.9 % Final [facility] L ab (Internal) : [address] 01/27/2020 HbA1C BLD High Ha1C 8.6 % 4.0-6.0 % Final [facility] (Hemoglobin Count ry a1C), Blood Hospi anna Lab (Internal) : [address] 01/27/2020 Folate, Serum S ? Folate >17.00 2.76-20.0 Fi nal [place] NG/mL 0 NG/mL [facility] L ab (Internal) : [address] 01/27/2020 BNP (B-type S ? Nt-probnp 227 pg/mL 0-450 F [facility] [place] Natriuretic pg/mL Count ry Peptide), Hospita l Lab Prohormone (Inter nal): N-terminal, [address], [place] Immunoassay, Blood 01/27/2020 TSH, Serum or S Low Tsh 0.17 0.47-4.68 Fin al [place] Plasma u[IU]/mL u[IU]/mL [facility] L ab (Internal) : [address] 01/27/2020 Ferritin, Serum S ? Ferr 18 NG/mL 11-264 Fi nal [place] or Plasma NG/mL [facility] L ab (Internal) : [address] 11/25/2019 Renal Function S High g/r 294 mg/dL 74-106 Fi nal [place] Panel, Serum mg/dL [facility] L ab (Internal) : [address] t ? ? S High Bun 25 mg/dL 7-17 Final [place] mg/dL [facility] L ab (Internal) : [address] t ? ? S High Crea 1.30 0.52-1.04 Final [facility] mg/dL mg/dL [facility] L ab (Internal) : [address] t ? ? S ? Ca 9.2 mg/dL 8.4-10.2 Final [place] mg/dL [facility] L ab (Internal) : [address] ? ? S ? Phos 3.5 mg/dL 2.5-4.5 Final [place] mg/dL [facility] L ab (Internal) : [address] t ? ? S ? Na 137 137-145 Final [place] mmol/L mmol/L [facility] L ab (Internal) : [address] ? ? S ? K 5.0 3.5-5.1 Final [place] mmol/L mmol/L [facility] L ab (Internal) : [address] ? ? S ? Cl 104 98-107 Final [place] mmol/L mmol/L [facility] L ab (Internal) : [address] ? ? S ? Tco2 23.0 22.0-30.0 Final [place] mmol/L mmol/L [facility] L ab (Internal) : [address] t ? ? S Low Alb 3.1 g/dL 3.5-5.0 Final [place] g/dL [facility] L ab (Internal) : [address] t ? ? S Low GFR (Calc) 39 >89 Final [facility] L ab (Internal) : [address] 11/25/2019 T4, Free, Serum S ? Ft4 1.48 0.78-2.19 F inal [place] NG/dL NG/dL [facility] L ab (Internal) : [address] 11/25/2019 TSH, Serum or S ? Tsh 1.88 0.47-4.68 Fin al [place] Plasma u[IU]/mL u[IU]/mL [facility] (Internal[facility] : [address] 09/29/2019 Amylase, Serum S High Scarlett 134 U/L 30-110 Earline l [place] or Plasma U/L [facility] L ab (Internal) : [address] 09/29/2019 Renal Function S High g/r 304 mg/dL 74-106 Fi nal [place] Panel, Serum mg/dL [facility] L ab (Internal) : [address] t ? ? S High Bun 25 mg/dL 7-17 Final [place] mg/dL [facility] L ab (Internal) : [address] ? ? S High Crea 1.10 0.52-1.04 Final [place] mg/dL mg/dL [facility] L ab (Internal) : [address] ? ? S ? Ca 9.8 mg/dL 8.4-10.2 Final [facility] mg/dL [facility] L ab (Internal) : [address] ? ? S ? Phos 3.3 mg/dL 2.5-4.5 Final [place] mg/dL [facility] L ab (Internal) : [address] ? ? S Low Na 133 137-145 Final [place] mmol/L mmol/L [facility] L ab (Internal) : [address] ? ? S ? K 4.2 3.5-5.1 Final [place] mmol/L mmol/L [facility] L ab (Internal) : [address] ? ? S Low Cl 97 mmol/L 98-107 Final [facility] mmol/L [facility] L ab (Internal) : [address] ? ? S ? Tco2 26.0 22.0-30.0 Final [place] mmol/L mmol/L [facility] L ab (Internal) : [address] ? ? S Low Alb 3.3 g/dL 3.5-5.0 Final [place] g/dL [facility] L ab (Internal) : [address] [place] ? ? S Low GFR (Calc) 48 >89 Final [facility] L ab (Internal) : [address] 09/29/2019 Lipase, Serum S ? Lip 124 U/L 23-300 Final [place] or Plasma U/L [facility] L ab (Internal) : [address] 09/29/2019 HbA1C BLD High Ha1C 8.4 % 4.0-6.0 % Final [facility] th (Hemoglobin Count ry a1C), Blood Hospi anna Lab (Internal) : [address] 09/29/2019 Folate, Serum S ? Folate 9.62 2.76-20.0 Fi nal [place] NG/mL 0 NG/mL [facility] L ab (Internal) : [address] 09/29/2019 TSH, Serum or S High Tsh 7.76 0.47-4.68 Fin al [place] Plasma u[IU]/mL u[IU]/mL [facility] L ab (Internal) : [address] 09/29/2019 CBC W/ Auto BLD ? Wbc 5.8 5.0-10.0 Final [place] Diff 10*3/uL 10*3/uL [facility] L ab (Internal) : [address] ? ? BLD Low Rbc 3.46 4.10-5.30 Final [place] 10*6/uL 10*6/uL [facility] L ab (Internal) : [address] t ? ? BLD Low Hgb 11.5 g/dL 12.0-16.0 Final Nort h g/dL [facility] L ab (Internal) : [address] ? ? BLD Low Hct 34.6 % 37.0-47.0 Final [place] % [facility] L ab (Internal) : [address] ? ? BLD High Mcv 100.0 fL 80.0-96.0 Final [place] fL [facility] L ab (Internal) : [address] ? ? BLD High Mch 33.2 pg 26.0-32.0 Final [place] pg [facility] L ab (Internal) : [address] t ? ? BLD ? Mchc 33.2 g/dL 31.0-35.0 Final Nort h g/dL [facility] L ab (Internal) : [address] ? ? BLD ? Rdw 13.0 % 11.5-14.5 Final [facility] L ab (Internal) : [address] ? ? BLD Low Plt 67 130-450 Final [place] 10*3/uL 10*3/uL [facility] L ab (Internal) : [address] ? ? BLD ? Anc 3.87 ? Final [place] 10*3/uL [facility] L ab (Internal) : [address] ? ? BLD ? Neutro 66.3 % 40.0-75.0 Final [facility] L ab (Internal) : [address] ? ? BLD Low Lymph 17.0 % 20.0-50.0 Final [facility] L ab (Internal) : [address] ? ? BLD ? [place] 7.7 % 2.0-10.0 Final [facility] L ab (Internal) : [address] ? ? BLD High Eos 6.8 % 1.0-6.0 % Final [facility] L ab (Internal) : [address] ? ? BLD High Baso 1.5 % 0.0-1.0 % Final [facility] L ab (Internal) : [address] ? ? BLD ? Ig 0.7 % 0.0-0.9 % Final [facility] L ab (Internal) : [address] t 08/16/2019 CBC W/ Auto BLD ? Wbc 5.1 5.0-10.0 Final [place] Diff 10*3/uL 10*3/uL [facility] L ab (Internal) : [address] t ? ? BLD Low Rbc 3.23 4.10-5.30 Final [place] 10*6/uL 10*6/uL [facility] L ab (Internal) : [address] t ? ? BLD Low Hgb 10.8 g/dL 12.0-16.0 Final Nort h g/dL [facility] L ab (Internal) : [address] ? ? BLD Low Hct 32.6 % 37.0-47.0 Final [facility] L ab (Internal) : [address] ? ? BLD High Mcv 100.9 fL 80.0-96.0 Final [facility] L ab (Internal) : [address] ? ? BLD High Mch 33.4 pg 26.0-32.0 Final [facility] L ab (Internal) : [address] ? ? BLD ? Mchc 33.1 g/dL 31.0-35.0 Final Nort h g/dL [facility] L ab (Internal) : [address] ? ? BLD ? Rdw 12.8 % 11.5-14.5 Final [facility] L ab (Internal) : [address] ? ? BLD Low Plt 64 130-450 Final [place] 10*3/uL 10*3/uL [facility] L ab (Internal) : [address] ? ? BLD ? Anc 3.07 ? Final [place] 10*3/uL [facility] L ab (Internal) : [address] ? ? BLD ? Neutro 60.2 % 40.0-75.0 Final [facility] L ab (Internal) : [address] ? ? BLD Low Lymph 19.8 % 20.0-50.0 Final [facility] L ab (Internal) : [address] ? ? BLD ? [place] 8.0 % 2.0-10.0 Final [facility] L ab (Internal) : [address] ? ? BLD High Eos 9.2 % 1.0-6.0 % Final [facility] L ab (Internal) : [address] ? ? BLD High Baso 1.4 % 0.0-1.0 % Final [facility] L ab (Internal) : [address] ? ? BLD High Ig 1.4 % 0.0-0.9 % Final [facility] L ab (Internal) : [address] 08/16/2019 Amylase, Serum S High Scarlett 144 U/L 30-110 Earline [facility] or Plasma U/L [facility] L ab (Internal) : [address] t 08/16/2019 Lipase, Serum S ? Lip 122 U/L 23-300 Final [place] or Plasma U/L [facility] L ab (Internal) : [address] 08/16/2019 RBC Morphology, BLD ? Macro occasiona ? F inal [place] Blood l [facility] L ab (Internal) : [address] ? ? BLD ? Polychrom rare ? Final [facility] L ab (Internal) : [address] 08/16/2019 Renal Function S High g/r 188 mg/dL 74-106 Fi nal [place] Panel, Serum mg/dL [facility] L ab (Internal) : [address] t ? ? S ? Bun 13 mg/dL 7-17 Final [place] mg/dL [facility] L ab (Internal) : [address] ? ? S ? Crea 0.90 0.52-1.04 Final [place] mg/dL mg/dL [facility] L ab (Internal) : [address] ? ? S ? Ca 9.6 mg/dL 8.4-10.2 Final [place] mg/dL [facility] L ab (Internal) : [address] ? ? S ? Phos 3.3 mg/dL 2.5-4.5 Final [place] mg/dL [facility] L ab (Internal) : [address] ? ? S Low Na 136 137-145 Final [place] mmol/L mmol/L [facility] L ab (Internal) : [address] ? ? S ? K 4.0 3.5-5.1 Final [place] mmol/L mmol/L [facility] L ab (Internal) : [address] ? ? S ? Cl 99 mmol/L 98-107 Final [place] mmol/L [facility] L ab (Internal) : [address] ? ? S ? Tco2 26.0 22.0-30.0 Final [place] mmol/L mmol/L [facility] L ab (Internal) : [address] ? ? S Low Alb 3.4 g/dL 3.5-5.0 Final [place] g/dL [facility] L ab (Internal) : [address] ? ? S Low GFR (Calc) 60 >89 Final [facility] L ab (Internal) : [address] 08/03/2019 Renal Function S High g/r 184 mg/dL 74-106 Fi nal [place] Panel, Serum mg/dL [facility] L ab (Internal) : [address] ? ? S High Bun 27 mg/dL 7-17 Final [place] mg/dL [facility] L ab (Internal) : [address] ? ? S ? Crea 0.90 0.52-1.04 Final [place] mg/dL mg/dL [facility] L ab (Internal) : [address] ? ? S ? Ca 8.6 mg/dL 8.4-10.2 Final [place] mg/dL [facility] L ab (Internal) : [address] ? ? S ? Phos 3.3 mg/dL 2.5-4.5 Final [place] mg/dL [facility] L ab (Internal) : [address] ? ? S Low Na 135 137-145 Final [place] mmol/L mmol/L [facility] L ab (Internal) : [address] ? ? S ? K 3.5 3.5-5.1 Final [place] mmol/L mmol/L [facility] L ab (Internal) : [address] ? ? S Low Cl 97 mmol/L 98-107 Final [place] mmol/L [facility] L ab (Internal) : [address] ? ? S ? Tco2 26.0 22.0-30.0 Final [place] mmol/L mmol/L [facility] L ab (Internal) : [address] ? ? S ? Alb 3.6 g/dL 3.5-5.0 Final [place] g/dL [facility] L ab (Internal) : [address] ? ? S Low GFR (Calc) 60 >89 Final [facility] L ab (Internal) : [address] 08/02/2019 Urinalysis, ? No ? ? ? P _nc Primary Dipstick, observation [place] re Reflex Micro recorded. [place]: [address], [place] 07/27/2019 RBC Morphology, BLD - Macro small ? Earline l [facility] L ab (Internal) : [address] 07/27/2019 CBC W/ Auto BLD - Wbc 5.9 5.0-10.0 Final [place] Diff 10*3/uL 10*3/uL [facility] L ab (Internal) : [address] ? ? BLD Low Rbc 3.37 4.10-5.30 Final [place] 10*6/uL 10*6/uL [facility] L ab (Internal) : [address] ? ? BLD Low Hgb 11.2 g/dL 12.0-16.0 Final Nort h g/dL [facility] L ab (Internal) : [address] ? ? BLD Low Hct 34.6 % 37.0-47.0 Final [facility] L ab (Internal) : [address] ? ? BLD High Mcv 102.7 fL 80.0-96.0 Final [facility] L ab (Internal) : [address] ? ? BLD High Mch 33.2 pg 26.0-32.0 Final [facility] L ab (Internal) : [address] ? ? BLD - Mchc 32.4 g/dL 31.0-35.0 Final Nort h g/dL [facility] L ab (Internal) : [address] ? ? BLD - Rdw 13.2 % 11.5-14.5 Final [facility] L ab (Internal) : [address] ? ? BLD Low Plt 78 130-450 Final [place] 10*3/uL 10*3/uL [facility] L ab (Internal) : [address] ? ? BLD - Anc 3.79 ? Final [place] 10*3/uL [facility] L ab (Internal) : [address] ? ? BLD - Neutro 63.9 % 40.0-75.0 Final [facility] (Internal) : [address] ? ? BLD Low Lymph 17.8 % 20.0-50.0 Final [facility] (Internal) : [address] ? ? BLD - [place] 7.4 % 2.0-10.0 Final [facility] (Internal) : [address] ? ? BLD High Eos 8.4 % 1.0-6.0 % Final [facility] L ab (Internal) : [address] ? ? BLD High Baso 1.5 % 0.0-1.0 % Final [facility] L ab (Internal) : [address] ? ? BLD High Ig 1.0 % 0.0-0.9 % Final [facility] L ab (Internal) : [address] 07/27/2019 BMP, Serum or S High g/r 229 mg/dL 74-106 Fin al [facility] Plasma mg/dL [facility] L [facility] (Internal) : [address] ? ? S High Bun 33 mg/dL 7-17 Final [facility] mg/dL [facility] L ab (Internal) : [address] ? ? S High Crea 1.40 0.52-1.04 Final [place] mg/dL mg/dL [facility] L ab (Internal) : [address] ? ? S - Ca 8.7 mg/dL 8.4-10.2 Final [facility] mg/dL [facility] L [facility] (Internal) : [address] ? ? S Low Na 135 137-145 Final [facility] mmol/L mmol/L [facility] L ab (Internal) : [address] ? ? S - K 4.6 3.5-5.1 Final [facility] mmol/L mmol/L [facility] L ab (Internal) : [address] ? ? S - Cl 102 98-107 Final [facility] mmol/L mmol/L [facility] L ab (Internal) : [address] ? ? S - Tco2 23.0 22.0-30.0 Final [facility] mmol/L mmol/L [facility] L ab (Internal) : [address] 07/23/2019 BMP, Serum or S High g/r 143 mg/dL 74-106 Fin al [facility] Plasma mg/dL [facility] L ab (Internal) : [address] ? ? S - Bun 17 mg/dL 7-17 Final [facility] mg/dL [facility] L [facility] (Internal) : [address] ? ? S High Crea 1.10 0.52-1.04 Final [place] mg/dL mg/dL [facility] L ab (Internal) : [address] ? ? S - Ca 9.0 mg/dL 8.4-10.2 Final [facility] mg/dL [facility] L [facility] (Internal) : [address] ? ? S - Na 137 137-145 Final [facility] mmol/L mmol/L [facility] L ab (Internal) : [address] ? ? S - K 5.1 3.5-5.1 Final [facility] mmol/L mmol/L [facility] L ab (Internal) : [address] ? ? S - Cl 107 98-107 Final [facility] mmol/L mmol/L [facility] L ab (Internal) : [address] ? ? S Low Tco2 21.0 22.0-30.0 Final [facility] mmol/L mmol/L [facility] L ab (Internal) : [address] 07/21/2019 CBC W/ Auto BLD Low Wbc 4.5 5.0-10.0 Final [place] Diff 10*3/uL 10*3/uL [facility] L ab (Internal) : [address] ? ? BLD Low Rbc 3.05 4.10-5.30 Final [facility] 10*6/uL 10*6/uL [facility] L ab (Internal) : [address] ? ? BLD Low Hgb 10.2 g/dL 12.0-16.0 Final Nort [facility] g/dL [facility] L ab (Internal) : [address] ? ? BLD Low Hct 31.7 % 37.0-47.0 Final [facility] L ab (Internal) : [address], [place] ? ? BLD High Mcv 103.9 fL 80.0-96.0 Final [place] fL [facility] L ab (Internal) : [address] ? ? BLD High Mch 33.4 pg 26.0-32.0 Final [facility] pg [facility] L ab (Internal) : [address] ? ? BLD - Mchc 32.2 g/dL 31.0-35.0 Final Nort [facility] g/dL [facility] L ab (Internal) : [address] ? ? BLD - Rdw 13.3 % 11.5-14.5 Final [facility] ([facility] : [address] ? ? BLD Low Plt 65 130-450 Final [facility] 10*3/uL 10*3/uL [facility] (Internal) : [address] 07/21/2019 BMP, Serum or S - g/r 91 mg/dL 74-106 Earline l [facility] Plasma mg/dL [facility] (Internal) : [address] ? ? S High Bun 29 mg/dL 7-17 Final [facility] mg/dL [facility] (Internal) : [address] ? ? S High Crea 1.30 0.52-1.04 Final [facility] mg/dL mg/dL [facility] (Internal) : [address] ? ? S - Ca 8.6 mg/dL 8.4-10.2 Final [facility] mg/dL [facility] (Internal) : [address] ? ? S - Na 138 137-145 Final [facility] mmol/L mmol/L [facility] (Internal) : [address] ? ? S High K 5.8 3.5-5.1 Final [facility] mmol/L mmol/L [facility] (Internal) : [address] t ? ? S High Cl 115 98-107 Final [facility] mmol/L mmol/L [facility] (Internal) : [address] ? ? S Low Tco2 18.0 22.0-30.0 Final [facility] mmol/L mmol/L [facility] (Internal) : [address] 07/21/2019 Differential, BLD - Polys 51 % 40-75 % Final [facility], Blood [facility] L ab (Internal) : [address] t ? ? BLD - Bands 0 % 0-5 % Final [facility] L ab (Internal) : [address] t ? ? BLD - Lymphs 32 % 20-50 % Final [facility] L ab (Internal) : [address] t ? ? BLD - [place] 5 % 2-10 % Final [facility] L ab (Internal) : [address] t ? ? BLD High Eos 11 % 0-6 % Final [facility] L ab (Internal) : [address] t ? ? BLD - Baso 1 % 0-1 % Final [facility] L ab (Internal) : [address] ? ? BLD - Atyp Lymph 0 % ? Final [facility] L ab (Internal) : [address] t ? ? BLD ABNOR Plts, Est. low adequate Final [facility] L ab (Internal) : [address] t ? ? BLD ABNOR RBC abnormal normal Final [facility] L ab (Internal) : [address] t ? ? BLD - Macro small ? Final [facility] L ab (Internal) : [address] 07/21/2019 Neutrophil BLD - Anc-manual 2.30 ? Earline l [place] Count, Absolute 10*3/uL [facility] (Anc), Blood Hosp ital Lab (Internal) : [address] t 07/21/2019 BMP, Serum or S High g/r 236 mg/dL 74-106 Fin al North Plasma mg/dL [facility] L ab (Internal) : [address] ? ? S High Bun 26 mg/dL 7-17 Final [place] mg/dL [facility] L ab (Internal) : [address] ? ? S High Crea 1.30 0.52-1.04 Final [place] mg/dL mg/dL [facility] L ab (Internal) : [address] ? ? S Low Ca 8.3 mg/dL 8.4-10.2 Final [facility] mg/dL [facility] ([facility]) : [address] ? ? S Low Na 136 137-145 Final [facility] mmol/L mmol/L [facility] (Internal) : [address] ? ? S High K 6.3 3.5-5.1 Final [facility] mmol/L mmol/L [facility] (Internal) : [address] ? ? S High Cl 112 98-107 Final [facility] mmol/L mmol/L [facility] (Internal) : [address] ? ? S Low Tco2 16.0 22.0-30.0 Final [facility] mmol/L mmol/L [facility] (Internal) : [address] 07/21/2019 BMP, Serum or S High g/r 172 mg/dL 74-106 Fin al [facility] Plasma mg/dL [facility] (Internal) : [address] t ? ? S High Bun 24 mg/dL 7-17 Final [facility] mg/dL [facility] (Internal) : [address] ? ? S High Crea 1.50 0.52-1.04 Final [facility] mg/dL mg/dL [facility] (Internal) : [address] ? ? S - Ca 8.9 mg/dL 8.4-10.2 Final [facility] mg/dL [facility] (Internal) : [address] ? ? S - Na 137 137-145 Final [facility] mmol/L mmol/L [facility] (Internal) : [address] ? ? S High K 5.6 3.5-5.1 Final [facility] mmol/L mmol/L [facility] (Internal) : [address] ? ? S High Cl 110 98-107 Final [facility] mmol/L mmol/L [facility] (Internal) : [address] ? ? S Low Tco2 20.0 22.0-30.0 Final [facility] mmol/L mmol/L [facility] (Internal) : [address] 07/20/2019 Lactic Acid, S - La 1.7 0.7-2.1 Final [place] Blood mmol/L mmol/L [facility] L ab (Internal) : [address] 07/20/2019 Culture ([place] UR - Final microbiol ? F inal [place] Count), Urine ogy Cou ntry results Hospital Lab (Internal) : [address] [facility] 07/20/2019 Lipase, Serum S - Lip 108 U/L 23-300 Final North or Plasma U/L [facility] L ab (Internal) : [address] [facility] 07/20/2019 Amylase, Serum S High Scarlett 134 U/L 30-110 Earline l [place] or Plasma U/L [facility] (Internal[facility] [address] [facility] Hepatic S - Tbil 0.6 mg/dL 0.2-1.3 Final N orth Function [facility] [address] ? ? S - Dbil 0.1 mg/dL 0.0-0.3 Final [place] mg/dL [facility] L ab (Internal) : [address] ? ? S - Alp 104 U/L 38-126 Final [place] U/L [facility] L ab (Internal) : [address] ? ? S - Alt (Sgpt) 25 U/L 9-52 U/L Final [facility] L ab (Internal) : [address] ? ? S High Ast (Sgot) 40 U/L 14-36 U/L Final No rth [facility] L ab (Internal) : [address] t ? ? S High Ggt 330 U/L 12-43 U/L Final [facility] L ab (Internal) : [address] ? ? S - Tp 6.8 g/dL 6.3-8.2 Final [place] g/dL [facility] L ab (Internal) : [address] ? ? S Low Alb 3.3 g/dL 3.5-5.0 Final [place] g/dL [facility] L ab (Internal) : [address] 07/20/2019 Renal Function S High g/r 172 mg/dL 74-106 Fi nal [place] Panel, Serum mg/dL [facility] L ab (Internal) : [address] ? ? S High Bun 40 mg/dL 7-17 Final [place] mg/dL [facility] L ab (Internal) : [address] ? ? S High Crea 1.90 0.52-1.04 Final [place] mg/dL mg/dL [facility] L ab (Internal) : [address] ? ? S - Ca 9.2 mg/dL 8.4-10.2 Final [place] mg/dL [facility] L ab (Internal) : [address] ? ? S - Phos 3.5 mg/dL 2.5-4.5 Final [place] mg/dL [facility] L ab (Internal) : [address] ? ? S - Na 137 137-145 Final [place] mmol/L mmol/L [facility] L ab (Internal) : [address] ? ? S CRITI K 6.6 3.5-5.1 Final [place] HAYDE mmol/L mmol/L [facility] L ab (Internal) : [address] ? ? S High Cl 110 98-107 Final [place] mmol/L mmol/L [facility] L ab (Internal) : [address] ? ? S Low Tco2 19.0 22.0-30.0 Final [place] mmol/L mmol/L [facility] L ab (Internal) : [address] ? ? S Low Alb 3.3 g/dL 3.5-5.0 Final [place] g/dL [facility] L ab (Internal) : [address] ? ? S Low GFR (Calc) 25 >89 Final [facility] L ab (Internal) : [address] 07/20/2019 Urinalysis, UR - UA-color yellow pale Final [place] Dipstick, yellow [facility] Lab (Internal) : [address] ? ? UR - UA-appear clear clear Final [facility] L ab (Internal) : [address] ? ? UR - UA-spec 1.025 1.003-1.0 Final [place] Grav 35 [facility] L ab (Internal) : [address] ? ? UR - UA-pH 5.0 [pH] 4.6-8.0 Final [place] [pH] [facility] L ab (Internal) : [address] t ? ? UR - UA-leuk negative negative Final Nort h Est [facility] L ab (Internal) : [address] ? ? UR - UA-nitrite negative negative Final N orth [facility] L ab (Internal) : [address] t ? ? UR - UA-prot negative negative Final Nort h [facility] L ab (Internal) : [address] ? ? UR - UA-gluc negative negative Final [facility] L ab (Internal) : [address] ? ? UR - UA-ketone negative negative Final No rth [facility] L ab (Internal) : [address] ? ? UR - UA-urobil normal normal Final [facility] L ab (Internal) : [address] ? ? UR - UA-bili negative negative Final [facility] L ab (Internal) : [address] ? ? UR - UA-blood negative negative Final [facility] L ab (Internal) : [address] 07/20/2019 BMP, Serum or S High g/r 178 mg/dL 74-106 Fin al [place] Plasma mg/dL [facility] L ab (Internal) : [address] ? ? S High Bun 39 mg/dL 7-17 Final North mg/dL [facility] L ab (Internal) : [address] ? ? S High Crea 1.80 0.52-1.04 Final [place] mg/dL mg/dL [facility] L ab (Internal) : [address] ? ? S - Ca 9.2 mg/dL 8.4-10.2 Final [place] mg/dL [facility] L ab (Internal) : [address] ? ? S - Na 138 137-145 Final [place] mmol/L mmol/L [facility] L ab (Internal) : [address], [place] ? ? S CRITI K 6.5 3.5-5.1 Final [place] HAYDE mmol/L mmol/L [facility] L ab (Internal) : [address] ? ? S High Cl 110 98-107 Final [place] mmol/L mmol/L [facility] L ab (Internal) : [address] ? ? S Low Tco2 19.0 22.0-30.0 Final [place] mmol/L mmol/L [facility] L ab (Internal) : [address] 07/16/2019 Lipase, Serum S - Lip 188 U/L 23-300 Final [place] or Plasma U/L [facility] L ab (Internal) : [address] [facility] 07/16/2019 Amylase, Serum S High Scarlett 133 U/L 30-110 Earline l [place] or Plasma U/L [facility] L ab (Internal) : [address] [facility] RBC Morphology, BLD - Macro small ? Earline l [place] Blood [facility] L ab (Internal) : [address] 07/16/2019 CBC W/ Auto BLD - Wbc 5.4 5.0-10.0 Final [place] Diff 10*3/uL 10*3/uL [facility] L ab (Internal) : [address] ? ? BLD Low Rbc 3.53 4.10-5.30 Final [place] 10*6/uL 10*6/uL [facility] L ab (Internal) : [address] ? ? BLD Low Hgb 11.8 g/dL 12.0-16.0 Final Nort h g/dL [facility] L ab (Internal) : [address] ? ? BLD Low Hct 36.5 % 37.0-47.0 Final [place] % [facility] L ab (Internal) : [address] ? ? BLD High Mcv 103.4 fL 80.0-96.0 Final [place] fL [facility] L ab (Internal) : [address] ? ? BLD High Mch 33.4 pg 26.0-32.0 Final [place] pg [facility] L ab (Internal) : [address] ? ? BLD - Mchc 32.3 g/dL 31.0-35.0 Final Nort h g/dL [facility] L ab (Internal) : [address] ? ? BLD - Rdw 13.5 % 11.5-14.5 Final [facility] L ab (Internal) : [address] ? ? BLD Low Plt 76 130-450 Final [place] 10*3/uL 10*3/uL [facility] L ab (Internal) : [address] ? ? BLD - Anc 3.18 ? Final [place] 10*3/uL [facility] L ab (Internal) : [address] ? ? BLD - Neutro 59.1 % 40.0-75.0 Final [facility] L ab (Internal) : [address] ? ? BLD - Lymph 21.3 % 20.0-50.0 Final [facility] L ab (Internal) : [address] ? ? BLD - [place] 8.7 % 2.0-10.0 Final [facility] L ab (Internal) : [address], [place] ? ? BLD High Eos 8.5 % 1.0-6.0 % Final [facility] L ab (Internal) : [address] ? ? BLD High Baso 1.7 % 0.0-1.0 % Final [facility] L ab (Internal) : [address] ? ? BLD - Ig 0.7 % 0.0-0.9 % Final [facility] L ab (Internal) : [address], [place] 06/24/2019 CBC W/ Auto BLD - Wbc 8.5 5.0-10.0 Final [place] Diff 10*3/uL 10*3/uL [facility] L ab (Internal) : [address] ? ? BLD Low Rbc 3.75 4.10-5.30 Final [place] 10*6/uL 10*6/uL [facility] L ab (Internal) : [address] t ? ? BLD - Hgb 12.4 g/dL 12.0-16.0 Final Nort h g/dL [facility] L ab (Internal) : [address] ? ? BLD - Hct 37.6 % 37.0-47.0 Final [facility] Hospital L ab (Internal) : [address] [place] ? ? BLD High Mcv 100.3 fL 80.0-96.0 Final [facility] Hospital L ab (Internal) : [address] ? ? BLD High Mch 33.1 pg 26.0-32.0 Final [place] pg [facility] L ab (Internal) : [address] ? ? BLD - Mchc 33.0 g/dL 31.0-35.0 Final Nort h g/dL [facility] L ab (Internal) : [address] ? ? BLD - Rdw 14.3 % 11.5-14.5 Final [facility] L ab (Internal) : [address] ? ? BLD Low Plt 101 130-450 Final [place] 10*3/uL 10*3/uL [facility] L ab (Internal) : [address] ? ? BLD - Anc 5.28 ? Final [place] 10*3/uL [facility] L ab (Internal) : [address] ? ? BLD - Neutro 62.3 % 40.0-75.0 Final [facility] L ab (Internal) : [address] ? ? BLD Low Lymph 18.1 % 20.0-50.0 Final [facility] L ab (Internal) : [address] ? ? BLD - [place] 8.5 % 2.0-10.0 Final [facility] L ab (Internal) : [address] ? ? BLD High Eos 8.8 % 1.0-6.0 % Final [facility] L ab (Internal) : [address] ? ? BLD High Baso 1.4 % 0.0-1.0 % Final [facility] L ab (Internal) : [address] ? ? BLD - Ig 0.9 % 0.0-0.9 % Final [facility] L ab (Internal) : [address] t 06/24/2019 CMP, Serum or S High g/r 239 mg/dL 74-106 Fin al [facility] Plasma mg/dL [facility] ([facility] : [address] ? ? S High Bun 25 mg/dL 7-17 Final [facility] mg/dL [facility] (Internal) : [address] ? ? S High Crea 1.20 0.52-1.04 Final [facility] mg/dL mg/dL [facility] (Internal) : [address] ? ? S - Ca 9.4 mg/dL 8.4-10.2 Final [facility] mg/dL [facility] (Internal) : [address] ? ? S Low Na 136 137-145 Final [facility] mmol/L mmol/L [facility] (Internal) : [address] ? ? S - K 4.7 3.5-5.1 Final [facility] mmol/L mmol/L [facility] (Internal) : [address] ? ? S - Cl 101 98-107 Final [facility] mmol/L mmol/L [facility] (Internal) : [address] ? ? S - Tco2 25.0 22.0-30.0 Final [facility] mmol/L mmol/L [facility] (Internal) : [address] ? ? S - Tp 7.4 g/dL 6.3-8.2 Final [facility] g/dL [facility] (Internal) : [address] ? ? S - Alb 3.6 g/dL 3.5-5.0 Final [facility] g/dL [facility] (Internal) : [address] ? ? S - Tbil 1.0 mg/dL 0.2-1.3 Final [facility] mg/dL [facility] (Internal) : [address] ? ? S - Alp 100 U/L 38-126 Final [facility] U/L [facility] (Internal) : [address] ? ? S - Alt (Sgpt) 30 U/L 9-52 U/L Final [facility] (Internal) : [address] ? ? S High Ast (Sgot) 48 U/L 14-36 U/L Final No rth [facility] L ab (Internal) : [address] 06/24/2019 HbA1C BLD High Ha1C 8.4 % 4.0-6.0 % Final Nor th (Hemoglobin Count ry a1C), Blood Hospi anna Lab (Internal) : [address] [facility]2019 RBC Morphology, BLD - Macro small ? Earline l [facility] L ab (Internal) : [address] ? ? BLD - Polychrom rare ? Final [facility] ab (Internal) : [address] [facility] 06/24/2019 TSH, Serum or S - Tsh 3.50 0.47-4.68 [facility] Plasma u[IU]/mL u[IU]/mL [facility] L ab (Internal) : [address] 06/23/2019 Culture ([place] UR - Final microbiol ? [place] Count), Urine ogy Cou ntry [facility] Lab (Internal) : [address] [facility] 06/10/2019 RBC Morphology, BLD - Macro occasiona ? F inal [facility] L ab (Internal) : [address] ? ? BLD - Stomat occasiona ? Final [facility] L ab (Internal) : [address] 06/10/2019 CBC W/ Auto BLD - Wbc 5.4 5.0-10.0 Final [place] Diff 10*3/uL 10*3/uL [facility] L ab (Internal) : [address] ? ? BLD Low Rbc 3.49 4.10-5.30 Final [place] 10*6/uL 10*6/uL [facility] L ab (Internal) : [address] ? ? BLD Low Hgb 11.7 g/dL 12.0-16.0 [facility] L ab (Internal) : [address] ? ? BLD Low Hct 35.0 % 37.0-47.0 Final [facility] L ab (Internal) : [address] ? ? BLD High Mcv 100.3 fL 80.0-96.0 Final [facility] Hospital L ab (Internal) : [address] ? ? BLD High Mch 33.5 pg 26.0-32.0 Final [facility] Hospital L ab (Internal) : [address], [place] ? ? BLD - Mchc 33.4 g/dL 31.0-35.0 Final Nort h g/dL [facility] L ab (Internal) : [address], [place] t ? ? BLD High Rdw 14.8 % 11.5-14.5 Final [facility] L ab (Internal) : [address] ? ? BLD Low Plt 74 130-450 Final [place] 10*3/uL 10*3/uL [facility] L ab (Internal) : [address] ? ? BLD - Anc 3.31 ? Final [place] 10*3/uL [facility] L ab (Internal) : [address], [place] ? ? BLD - Neutro 60.9 % 40.0-75.0 Final [facility] L ab (Internal) : [address] ? ? BLD - Lymph 21.0 % 20.0-50.0 Final [facility] L ab (Internal) : [address] ? ? BLD - [place] 8.1 % 2.0-10.0 Final [facility] L ab (Internal) : [address] ? ? BLD High Eos 7.6 % 1.0-6.0 % Final [facility] L ab (Internal) : [address] ? ? BLD High Baso 2.0 % 0.0-1.0 % Final [facility] L ab (Internal) : [address] ? ? BLD - Ig 0.4 % 0.0-0.9 % Final [facility] L ab (Internal) : [address] t 05/19/2019 CBC W/ Auto BLD Low Wbc 4.8 5.0-10.0 Final [place] Diff 10*3/uL 10*3/uL [facility] L ab (Internal) : [address] ? ? BLD Low Rbc 3.28 4.10-5.30 Final [place] 10*6/uL 10*6/uL [facility] L ab (Internal) : [address] ? ? BLD Low Hgb 10.9 g/dL 12.0-16.0 Final Nort h g/dL [facility] L ab (Internal) : [address] ? ? BLD Low Hct 32.5 % 37.0-47.0 Final [facility] Hospital L ab (Internal) : [address] ? ? BLD High Mcv 99.1 fL 80.0-96.0 Final [facility] Hospital L ab (Internal) : [address] ? ? BLD High Mch 33.2 pg 26.0-32.0 Final [facility] Hospital L ab (Internal) : [address] olegario ? ? BLD - Mchc 33.5 g/dL 31.0-35.0 Final Nort h g/dL [facility] L ab (Internal) : [address] ? ? BLD High Rdw 14.6 % 11.5-14.5 Final [facility] Hospital L ab (Internal) : [address] ? ? BLD Low Plt 64 130-450 Final [place] 10*3/uL 10*3/uL [facility] L ab (Internal) : [address] olegario ? ? BLD - Anc 2.72 ? Final [place] 10*3/uL [facility] L ab (Internal) : [address] ? ? BLD - Neutro 56.6 % 40.0-75.0 Final [facility] Hospital L ab (Internal) : [address] ? ? BLD - Lymph 23.7 % 20.0-50.0 Final [facility] Hospital L ab (Internal) : [address] ? ? BLD - [place] 9.1 % 2.0-10.0 Final [facility] Hospital L ab (Internal) : [address] ? ? BLD High Eos 8.5 % 1.0-6.0 % Final [facility] L ab (Internal) : [address] ? ? BLD High Baso 1.5 % 0.0-1.0 % Final [facility] L ab (Internal) : [address] ? ? BLD - Ig 0.6 % 0.0-0.9 % Final [facility] L ab (Internal) : [address] 04/26/2019 CBC W/ Auto BLD - Wbc 5.9 5.0-10.0 Final [place] Diff 10*3/uL 10*3/uL [facility] L ab (Internal) : [address] ? ? BLD Low Rbc 3.57 4.10-5.30 Final [place] 10*6/uL 10*6/uL [facility] L ab (Internal) : [address] ? ? BLD Low Hgb 11.7 g/dL 12.0-16.0 Final Nort h g/dL [facility] L ab (Internal) : [address] ? ? BLD Low Hct 35.7 % 37.0-47.0 Final [facility] L ab (Internal) : [address] ? ? BLD High Mcv 100.0 fL 80.0-96.0 Final [facility] L ab (Internal) : [address] ? ? BLD High Mch 32.8 pg 26.0-32.0 Final [facility] L ab (Internal) : [address] ? ? BLD - Mchc 32.8 g/dL 31.0-35.0 Final Nort h g/dL [facility] L ab (Internal) : [address] ? ? BLD - Rdw 13.5 % 11.5-14.5 Final [facility] L ab (Internal) : [address] ? ? BLD Low Plt 75 130-450 Final [place] 10*3/uL 10*3/uL [facility] L ab (Internal) : [address] ? ? BLD - Anc 3.55 ? Final [place] 10*3/uL [facility] L ab (Internal) : [address] ? ? BLD - Neutro 60.3 % 40.0-75.0 Final [facility] L ab (Internal) : [address] ? ? BLD - Lymph 21.0 % 20.0-50.0 Final [facility] L ab (Internal) : [address] ? ? BLD - [place] 8.6 % 2.0-10.0 Final [facility] L ab (Internal) : [address] ? ? BLD High Eos 8.3 % 1.0-6.0 % Final [facility] L ab (Internal) : [address] ? ? BLD High Baso 1.5 % 0.0-1.0 % Final [facility] L ab (Internal) : [address] ? ? BLD - Ig 0.3 % 0.0-0.9 % Final [facility] L ab (Internal) : [address] 04/24/2019 CBC W/ Auto BLD - Wbc 6.9 5.0-10.0 Final [place] Diff 10*3/uL 10*3/uL [facility] L ab (Internal) : [address] ? ? BLD Low Rbc 3.74 4.10-5.30 Final [place] 10*6/uL 10*6/uL [facility] L ab (Internal) : [address] ? ? BLD - Hgb 12.3 g/dL 12.0-16.0 Final Nort h g/dL [facility] L ab (Internal) : [address] ? ? BLD - Hct 37.0 % 37.0-47.0 Final [facility] L ab (Internal) : [address] ? ? BLD High Mcv 98.9 fL 80.0-96.0 Final [facility] L ab (Internal) : [address] ? ? BLD High Mch 32.9 pg 26.0-32.0 Final [facility] L ab (Internal) : [address] ? ? BLD - Mchc 33.2 g/dL 31.0-35.0 Final Nort h g/dL [facility] L [facility] (Internal) : [address], [place] ? ? BLD - Rdw 13.7 % 11.5-14.5 Final [facility] L ab (Internal) : [address] ? ? BLD Low Plt 85 130-450 Final [place] 10*3/uL 10*3/uL [facility] L ab (Internal) : [address] t ? ? BLD - Anc 3.84 ? Final [place] 10*3/uL [facility] L ab (Internal) : [address] ? ? BLD - Neutro 55.9 % 40.0-75.0 Final [facility] L ab (Internal) : [address] ? ? BLD - Lymph 23.1 % 20.0-50.0 Final [facility] L ab (Internal) : [address] t ? ? BLD - [place] 9.9 % 2.0-10.0 Final [facility] L ab (Internal) : [address] ? ? BLD High Eos 8.9 % 1.0-6.0 % Final [facility] L ab (Internal) : [address] ? ? BLD High Baso 1.9 % 0.0-1.0 % Final [facility] L ab (Internal) : [address] ? ? BLD - Ig 0.3 % 0.0-0.9 % Final [facility] L ab (Internal) : [address] t 04/24/2019 CMP, Serum or S High g/r 167 mg/dL 74-106 Fin al [place] Plasma mg/dL [facility] L ab (Internal) : [address] ? ? S High Bun 27 mg/dL 7-17 Final North mg/dL [facility] L ab (Internal) : [address] ? ? S High Crea 1.10 0.52-1.04 Final [facility] mg/dL mg/dL [facility] L ab (Internal) : [address] ? ? S - Ca 8.7 mg/dL 8.4-10.2 Final [place] mg/dL [facility] L ab (Internal) : [address] ? ? S - Na 137 137-145 Final [facility] mmol/L mmol/L [facility] L [facility] (Internal) : [address] ? ? S - K 4.3 3.5-5.1 Final [place] mmol/L mmol/L [facility] L [facility] (Internal) : [address] ? ? S - Cl 103 98-107 Final [place] mmol/L mmol/L [facility] L [facility] (Internal) : [address] ? ? S - Tco2 27.0 22.0-30.0 Final [facility] mmol/L mmol/L [facility] L ab (Internal) : [address] ? ? S - Tp 7.3 g/dL 6.3-8.2 Final [facility] g/dL [facility] L [facility] (Internal) : [address] ? ? S Low Alb 3.2 g/dL 3.5-5.0 Final [facility] g/dL [facility] L [facility] (Internal) : [address] ? ? S - Tbil 0.7 mg/dL 0.2-1.3 Final [facility] mg/dL [facility] L [facility] (Internal) : [address] ? ? S High Alp 143 U/L 38-126 Final [facility] U/L [facility] L [facility] (Internal) : [address] ? ? S - Alt (Sgpt) 27 U/L 9-52 U/L Final [facility] L [facility] (Internal) : [address] ? ? S High Ast (Sgot) 43 U/L 14-36 U/L Final No rth [facility] L ab (Internal) : [address] 04/24/2019 BNP (B-type S - Nt-probnp 154 pg/mL 0-450 F inal [place] Natriuretic pg/mL Count ry Peptide), Hospita l Lab Prohormone (Inter nal): N-terminal, [address], [place] Immunoassay, Blood 04/22/2019 Electrocardiogr ? Rate & NSR ? ? P_nc Primary am Rhythm Care [place]: [address], [place] ? ? ? Qrs wide ? ? P_nc Prima ry Care [place] [facility] [place]: [address] [facility], [place] ? ? ? [place] 172 ? ? P_nc Prima ry Interval Care [place] [facility] [place]: [address] [facility], [place] ? ? ? QRS 126 ? ? P_nc Prima ry Duration Care [place] [facility]: [address] [facility], [place] ? ? ? QT 468 ? ? P_nc Prima ry Interval Care [place] [facility]: [address] [facility], [place] 04/06/2019 BMP, Serum or S High g/r 360 mg/dL 74-106 Fin al [place] Plasma mg/dL [facility] L [facility] (Internal) : [address] ? ? S High Bun 21 mg/dL 7-17 Final [facility] mg/dL [facility] L [facility] (Internal) : [address] ? ? S High Crea 1.10 0.52-1.04 Final [facility] mg/dL mg/dL [facility] L ab (Internal) : [address] ? ? S - Ca 8.4 mg/dL 8.4-10.2 Final [facility] mg/dL [facility] (Internal) : [address] ? ? S - Na 137 137-145 Final [facility] mmol/L mmol/L [facility] L [facility] (Internal) : [address] ? ? S - K 5.1 3.5-5.1 Final [facility] mmol/L mmol/L [facility] L [facility] (Internal) : [address] ? ? S - Cl 103 98-107 Final [place] mmol/L mmol/L [facility] L [facility] (Internal) : [address] ? ? S - Tco2 26.0 22.0-30.0 Final [facility] mmol/L mmol/L [facility] L ab (Internal) : [address] 04/06/2019 Ferritin, Serum S - Ferr 108 NG/mL 11-264 F inal [place] or Plasma NG/mL [facility] L ab (Internal) : [address] 04/06/2019 CBC W/ Auto BLD - Wbc 5.0 5.0-10.0 Final [place] Diff 10*3/uL 10*3/uL [facility] L ab (Internal) : [address] ? ? BLD Low Rbc 3.45 4.10-5.30 Final [place] 10*6/uL 10*6/uL [facility] L ab (Internal) : [address] ? ? BLD Low Hgb 11.2 g/dL 12.0-16.0 Final Nort h g/dL [facility] L ab (Internal) : [address] ? ? BLD Low Hct 34.2 % 37.0-47.0 Final [facility] L ab (Internal) : [address] ? ? BLD High Mcv 99.1 fL 80.0-96.0 Final [facility] Hospital L ab (Internal) : [address] ? ? BLD High Mch 32.5 pg 26.0-32.0 Final [facility] Hospital L ab (Internal) : [address] ? ? BLD - Mchc 32.7 g/dL 31.0-35.0 Final Nort h g/dL [facility] L ab (Internal) : [address] ? ? BLD - Rdw 14.2 % 11.5-14.5 Final [facility] L ab (Internal) : [address] ? ? BLD Low Plt 59 130-450 Final [place] 10*3/uL 10*3/uL [facility] L ab (Internal) : [address] ? ? BLD - Anc 3.04 ? Final [place] 10*3/uL [facility] L ab (Internal) : [address] ? ? BLD - Neutro 60.8 % 40.0-75.0 Final [facility] L ab (Internal) : [address] ? ? BLD Low Lymph 19.8 % 20.0-50.0 Final [facility] L ab (Internal) : [address] ? ? BLD - [place] 9.4 % 2.0-10.0 Final [facility] L ab (Internal) : [address] ? ? BLD High Eos 8.0 % 1.0-6.0 % Final [facility] L ab (Internal) : [address] ? ? BLD High Baso 1.4 % 0.0-1.0 % Final [facility] L ab (Internal) : [address] ? ? BLD - Ig 0.6 % 0.0-0.9 % Final [facility] L ab (Internal) : [address] t 03/23/2019 CBC W/ Auto BLD - Wbc 6.3 5.0-10.0 Final [place] Diff 10*3/uL 10*3/uL [facility] L ab (Internal) : [address] ? ? BLD Low Rbc 3.37 4.10-5.30 Final [place] 10*6/uL 10*6/uL [facility] L ab (Internal) : [address] ? ? BLD Low Hgb 11.0 g/dL 12.0-16.0 Final Nort h g/dL [facility] L ab (Internal) : [address] ? ? BLD Low Hct 33.6 % 37.0-47.0 Final [facility] L ab (Internal) : [address] ? ? BLD High Mcv 99.7 fL 80.0-96.0 Final [facility] L ab (Internal) : [address] ? ? BLD High Mch 32.6 pg 26.0-32.0 Final [facility] L ab (Internal) : [address] ? ? BLD - Mchc 32.7 g/dL 31.0-35.0 Final Nort h g/dL [facility] L ab (Internal) : [address] ? ? BLD - Rdw 14.4 % 11.5-14.5 Final [facility] L ab (Internal) : [address] ? ? BLD Low Plt 82 130-450 Final [place] 10*3/uL 10*3/uL [facility] L ab (Internal) : [address] ? ? BLD - Anc 3.86 ? Final [place] 10*3/uL [facility] L ab (Internal) : [address], [place] ? ? BLD - Neutro 61.1 % 40.0-75.0 Final [facility] L ab (Internal) : [address] ? ? BLD Low Lymph 19.7 % 20.0-50.0 Final [facility] L ab (Internal) : [address] ? ? BLD - [place] 8.4 % 2.0-10.0 Final [facility] Hospital L ab (Internal) : [address] ? ? BLD High Eos 7.8 % 1.0-6.0 % Final [facility] L ab (Internal) : [address] ? ? BLD High Baso 1.9 % 0.0-1.0 % Final [facility] L ab (Internal) : [address] ? ? BLD High Ig 1.1 % 0.0-0.9 % Final [facility] L ab (Internal) : [address] t 03/13/2019 CBC W/ Auto BLD - Wbc 6.0 5.0-10.0 Final [place] Diff 10*3/uL 10*3/uL [facility] L ab (Internal) : [address] ? ? BLD Low Rbc 3.03 4.10-5.30 Final [place] 10*6/uL 10*6/uL [facility] L ab (Internal) : [address] ? ? BLD Low Hgb 10.0 g/dL 12.0-16.0 Final Nort h g/dL [facility] L ab (Internal) : [address] ? ? BLD Low Hct 29.9 % 37.0-47.0 Final [facility] L ab (Internal) : [address] ? ? BLD High Mcv 98.7 fL 80.0-96.0 Final [facility] L ab (Internal) : [address] ? ? BLD High Mch 33.0 pg 26.0-32.0 Final [facility] L ab (Internal) : [address] ? ? BLD - Mchc 33.4 g/dL 31.0-35.0 Final Nort h g/dL [facility] L ab (Internal) : [address] ? ? BLD High Rdw 14.6 % 11.5-14.5 Final [facility] L ab (Internal) : [address] ? ? BLD Low Plt 51 130-450 Final [place] 10*3/uL 10*3/uL [facility] L ab (Internal) : [address] ? ? BLD - Anc 3.92 ? Final [place] 10*3/uL [facility] L ab (Internal) : [address] ? ? BLD - Neutro 65.6 % 40.0-75.0 Final [facility] L ab (Internal) : [address] ? ? BLD Low Lymph 17.2 % 20.0-50.0 Final [facility] L ab (Internal) : [address] ? ? BLD - [place] 6.0 % 2.0-10.0 Final [facility] L ab (Internal) : [address] ? ? BLD High Eos 9.0 % 1.0-6.0 % Final [facility] L ab (Internal) : [address] ? ? BLD - Baso 1.0 % 0.0-1.0 % Final [facility] L ab (Internal) : [address] ? ? BLD High Ig 1.2 % 0.0-0.9 % Final [facility] L ab (Internal) : [address] t 03/13/2019 BMP, Serum or S High g/r 198 mg/dL 74-106 Fin al [place] Plasma mg/dL [facility] L ab (Internal) : [address] ? ? S High Bun 25 mg/dL 7-17 Final North mg/dL [facility] L ab (Internal) : [address] ? ? S High Crea 1.20 0.52-1.04 Final [place] mg/dL mg/dL [facility] L ab (Internal) : [address] ? ? S Low Ca 8.0 mg/dL 8.4-10.2 Final [place] mg/dL [facility] L ab (Internal) : [address] ? ? S - Na 138 137-145 Final [place] mmol/L mmol/L [facility] L ab (Internal) : [address] ? ? S - K 4.7 3.5-5.1 Final [place] mmol/L mmol/L [facility] L ab (Internal) : [address] ? ? S High Cl 115 98-107 Final [place] mmol/L mmol/L [facility] L ab (Internal) : [address] ? ? S Low Tco2 19.0 22.0-30.0 Final [place] mmol/L mmol/L [facility] L ab (Internal) : [address] t 03/12/2019 CBC W/ Auto BLD - Wbc 7.4 5.0-10.0 Final [place] Diff 10*3/uL 10*3/uL [facility] (Internal) : [address] ? ? BLD Low Rbc 3.00 4.10-5.30 Final [place] 10*6/uL 10*6/uL [facility] L ab (Internal) : [address] ? ? BLD Low Hgb 9.9 g/dL 12.0-16.0 Final [place] g/dL [facility] L ab (Internal) : [address] ? ? BLD Low Hct 29.8 % 37.0-47.0 Final [facility] L ab (Internal) : [address] ? ? BLD High Mcv 99.3 fL 80.0-96.0 Final [facility] L ab (Internal) : [address] ? ? BLD High Mch 33.0 pg 26.0-32.0 Final [place] pg [facility] L ab (Internal) : [address] ? ? BLD - Mchc 33.2 g/dL 31.0-35.0 Final Nort h g/dL [facility] L ab (Internal) : [address] ? ? BLD High Rdw 14.7 % 11.5-14.5 Final [facility] L ab (Internal) : [address] ? ? BLD CRITI Plt 34 130-450 Final [place] HAYDE 10*3/uL 10*3/uL [facility] L ab (Internal) : [address] ? ? BLD - Anc 5.05 ? Final [place] 10*3/uL [facility] L ab (Internal) : [address] ? ? BLD - Neutro 68.3 % 40.0-75.0 Final [facility] L ab (Internal) : [address] ? ? BLD Low Lymph 17.9 % 20.0-50.0 Final [facility] L ab (Internal) : [address] ? ? BLD - [place] 6.5 % 2.0-10.0 Final [facility] L ab (Internal) : [address] ? ? BLD High Eos 6.1 % 1.0-6.0 % Final [facility] L ab (Internal) : [address] ? ? BLD - Baso 0.7 % 0.0-1.0 % Final [facility] L ab (Internal) : [address] ? ? BLD - Ig 0.5 % 0.0-0.9 % Final [facility] L ab (Internal) : [address] 03/12/2019 BMP, Serum or S High g/r 118 mg/dL 74-106 Fin al [place] Plasma mg/dL [facility] (Internal) : [address] ? ? S High Bun 29 mg/dL 7-17 Final [place] mg/dL [facility] L ab (Internal) : [address] ? ? S High Crea 1.40 0.52-1.04 Final [place] mg/dL mg/dL [facility] L ab (Internal) : [address] ? ? S Low Ca 7.4 mg/dL 8.4-10.2 Final [place] mg/dL [facility] L ab (Internal) : [address] ? ? S - Na 138 137-145 Final [place] mmol/L mmol/L [facility] L ab (Internal) : [address] ? ? S - K 4.6 3.5-5.1 Final [place] mmol/L mmol/L [facility] L [facility] (Internal) : [address] ? ? S High Cl 115 98-107 Final [place] mmol/L mmol/L [facility] (Internal) : [address] ? ? S Low Tco2 19.0 22.0-30.0 Final [place] mmol/L mmol/L [facility] L [facility] (Internal) : [address] 03/11/2019 BMP, Serum or S High g/r 193 mg/dL 74-106 Fin al [place] Plasma mg/dL [facility] (Internal) : [address] ? ? S High Bun 34 mg/dL 7-17 Final [facility] mg/dL [facility] (Internal) : [address] ? ? S High Crea 1.50 0.52-1.04 Final [place] mg/dL mg/dL [facility] L ab (Internal) : [address] ? ? S Low Ca 6.7 mg/dL 8.4-10.2 Final [facility] mg/dL [facility] L [facility] (Internal) : [address] ? ? S - Na 137 137-145 Final [place] mmol/L mmol/L [facility] L ab (Internal) : [address] ? ? S - K 4.5 3.5-5.1 Final [place] mmol/L mmol/L [facility] L ab (Internal) : [address] ? ? S High Cl 116 98-107 Final [place] mmol/L mmol/L [facility] L ab (Internal) : [address] ? ? S Low Tco2 18.0 22.0-30.0 Final [facility] mmol/L mmol/L [facility] L [facility] (Internal) : [address] 03/11/2019 CBC W/ Auto BLD High Wbc 15.3 5.0-10.0 Final [place] Diff 10*3/uL 10*3/uL [facility] L ab (Internal) : [address] ? ? BLD Low Rbc 3.21 4.10-5.30 Final North 10*6/uL 10*6/uL [facility] L ab (Internal) : [address] ? ? BLD Low Hgb 10.5 g/dL 12.0-16.0 Final Nort h g/dL [facility] L ab (Internal) : [address] ? ? BLD Low Hct 32.0 % 37.0-47.0 Final [facility] L ab (Internal) : [address] ? ? BLD High Mcv 99.7 fL 80.0-96.0 Final [facility] Hospital L ab (Internal) : [address] ? ? BLD High Mch 32.7 pg 26.0-32.0 Final [facility] Hospital L ab (Internal) : [address] ? ? BLD - Mchc 32.8 g/dL 31.0-35.0 Final Nort h g/dL [facility] L ab (Internal) : [address] ? ? BLD High Rdw 14.8 % 11.5-14.5 Final [facility] L ab (Internal) : [address] ? ? BLD CRITI Plt 36 130-450 Final [place] HAYDE 10*3/uL 10*3/uL [facility] L ab (Internal) : [address] 03/11/2019 Differential, BLD - Polys 73 % 40-75 % Final [facility] Hospital L ab (Internal) : [address] ? ? BLD - Bands 1 % 0-5 % Final [facility] L ab (Internal) : [address] ? ? BLD Low Lymphs 12 % 20-50 % Final [facility] L ab (Internal) : [address] ? ? BLD - [place] 10 % 2-10 % Final [facility] L ab (Internal) : [address] ? ? BLD - Eos 2 % 0-6 % Final [facility] L ab (Internal) : [address] ? ? BLD - Baso 0 % 0-1 % Final [facility] L ab (Internal) : [address] ? ? BLD - Atyp Lymph 0 % ? Final [facility] L ab (Internal) : [address] ? ? BLD High Young 2 % 0-0 % Final [facility] Hospital L ab (Internal) : [address] ? ? BLD ABNOR Plts, Est. low adequate Final [facility] Hospital L ab (Internal) : [address] ? ? BLD - RBC normal normal Final [facility] Hospital L ab (Internal) : [address] 03/11/2019 Neutrophil BLD - Anc-manual 11.34 ? Earline [facility] Count, Absolute 10*3/uL Country (Anc), Blood Hosp ital Lab (Internal) : [address] 03/11/2019 Magnesium, QN, S - mg 1.9 mg/dL 1.6-2.3 F inal [place] Serum or Plasma mg/dL [facility] L ab (Internal) : [address] 03/11/2019 Urinalysis, UR - UA-color dark pale Final [facility] yellow yellow [facility] L ab (Internal) : [address] ? ? UR ABNOR UA-appear cloudy clear Final [facility] Hospital L ab (Internal) : [address] ? ? UR - UA-spec 1.020 1.003-1.0 Final [place] Grav 35 [facility] L ab (Internal) : [address] ? ? UR - UA-pH 5.5 [pH] 4.6-8.0 Final [place] [pH] [facility] L ab (Internal) : [address] ? ? UR ABNOR UA-leuk small negative Final [facility] Hospital L ab (Internal) : [address] ? ? UR - UA-nitrite negative negative Final N orth [facility] L ab (Internal) : [address] ? ? UR ABNOR UA-prot 2+ negative Final [facility] Hospital L ab (Internal) : [address] ? ? UR - UA-gluc negative negative Final Nort h [facility] L ab (Internal) : [address] ? ? UR - UA-ketone negative negative Final No rth [facility] L ab (Internal) : [address] ? ? UR - UA-urobil normal normal Final [facility] ab (Internal) : [address] ? ? UR - UA-bili negative negative [facility] [address] ? ? UR ABNOR UA-blood large negative Final [facility] ab (Internal) : [address] ? ? UR ABNOR UA-WBC 10-25 0-3 [hpf] Final [facility]hpf[facility] [place] : [address] ? ? UR ABNOR UA-RBC >100 0-2 [hpf] Final [facility] [hpf] [facility] [place] : [address] ? ? UR ABNOR UA-bacteri few [hpf] none seen Final [facility] a [hpf] [facility]) : [address] ? ? UR ABNOR UA-epithel few [hpf] none seen Final [facility] ial [hpf] [facility] : [address] ? ? UR ABNOR UA-mucus rare none seen Final [facility] [hpf] [hpf] [facility] : [address] t 03/11/2019 Sodium, Urine UR - Na, Spot U 57 mmol/L 30-90 Final [place] mmol/[facility] ab (Internal) : [address] t 03/11/2019 Urea Nitrogen, UR - Un Spot U 598.0 350.0-10 0 Final [place] Urine mg/dL 0.0 mg/dL [facility] L ab (Internal) : [address] t 03/11/2019 Creatinine, UR - U-crea, 77 mg/dL 30-125 Earline l [place] Urine Spot mg/dL [facility] [place] : [address] 03/11/2019 Osmolality, UR - Osmol, U [phone] Fin al [place] Urine mOsm/l mOsm/l [facility] ([facility] : [address] 03/10/2019 Lactic Acid, S High La 4.9 0.7-2.1 Final [place] Blood mmol/L mmol/L [facility] L ab (Internal) : [address] 03/10/2019 Culture, Blood BLD - Final microbiol ? [place] [id number] [facility] : [address] 03/10/2019 Culture, Blood BLD - Final microbiol ? [place] [id number] [facility] Lab (Internal) : [address] 03/10/2019 CBC W/ Auto BLD - Wbc 9.5 5.0-10.0 Final [place] Diff 10*3/uL 10*3/uL [facility] L ab (Internal) : [address] ? ? BLD Low Rbc 3.40 4.10-5.30 Final [place] 10*6/uL 10*6/uL [facility] L ab (Internal) : [address] ? ? BLD Low Hgb 11.2 g/dL 12.0-16.0 [facility] L ab (Internal) : [address] ? ? BLD Low Hct 33.7 % 37.0-47.0 Final [facility] Hospital L ab (Internal) : [address] ? ? BLD High Mcv 99.1 fL 80.0-96.0 Final [facility] Hospital L ab (Internal) : [address] ? ? BLD High Mch 32.9 pg 26.0-32.0 Final [facility] Hospital L ab (Internal) : [address] ? ? BLD - Mchc 33.2 g/dL 31.0-35.0 Final Nort h g/dL [facility] L ab (Internal) : [address] ? ? BLD - Rdw 14.2 % 11.5-14.5 Final [facility] L ab (Internal) : [address] ? ? BLD Low Plt 53 130-450 Final [place] 10*3/uL 10*3/uL [facility] L ab (Internal) : [address] 03/10/2019 Differential, BLD High Polys 82 % 40-75 % Final [facility], Blood [facility] L ab (Internal) : [address] ? ? BLD High Bands 11 % 0-5 % Final [facility] L ab (Internal) : [address] ? ? BLD Low Lymphs 3 % 20-50 % Final [facility] L ab (Internal) : [address] ? ? BLD Low [place] 0 % 2-10 % Final [facility] L ab (Internal) : [address] ? ? BLD - Eos 2 % 0-6 % Final [facility] L ab (Internal) : [address] ? ? BLD High Baso 2 % 0-1 % Final [facility] L ab (Internal) : [address] ? ? BLD - Atyp Lymph 0 % ? Final [facility] ab (Internal) : [address] ? ? BLD ABNOR Plts, Est. low adequate Final [facility] L ab (Internal) : [address] ? ? BLD - RBC normal normal Final [facility] L ab (Internal) : [address] ? ? BLD - Giant Plt rare ? Final [facility] L ab (Internal) : [address] ? ? BLD - Stomat rare ? Final [facility] ab (Internal) : [address] 03/10/2019 Neutrophil BLD - Anc-manual 8.84 ? Earline l [place] Count, Absolute 10*3/uL [facility] (Anc) Blood Hosp ital Lab (Internal) : [address] 03/10/2019 CMP, Serum or S High g/r 158 mg/dL 74-106 Fin al [place] Plasma mg/dL [facility] Hospital L ab (Internal) : [address] ? ? S High Bun 27 mg/dL 7-17 Final [place] mg/dL [facility] L ab (Internal) : [address] ? ? S High Crea 1.20 0.52-1.04 Final [place] mg/dL mg/dL [facility] L ab (Internal) : [address] ? ? S Low Ca 8.1 mg/dL 8.4-10.2 Final [place] mg/dL [facility] L ab (Internal) : [address] t ? ? S Low Na 135 137-145 Final [place] mmol/L mmol/L [facility] L ab (Internal) : [address] t ? ? S - K 4.2 3.5-5.1 Final [place] mmol/L mmol/L [facility] L ab (Internal) : [address] ? ? S - Cl 105 98-107 Final [place] mmol/L mmol/L [facility] L ab (Internal) : [address] t ? ? S Low Tco2 19.0 22.0-30.0 Final [place] mmol/L mmol/L [facility] L ab (Internal) : [address] t ? ? S - Tp 6.7 g/dL 6.3-8.2 Final [place] g/dL [facility] L ab (Internal) : [address] ? ? S Low Alb 3.0 g/dL 3.5-5.0 Final [place] g/dL [facility] L ab (Internal) : [address] ? ? S High Tbil 2.0 mg/dL 0.2-1.3 Final [place] mg/dL [facility] L ab (Internal) : [address] t ? ? S High Alp 148 U/L 38-126 Final [place] U/L [facility] L ab (Internal) : [address] t ? ? S - Alt (Sgpt) 37 U/L 9-52 U/L Final Nor [facility] Hospital L ab (Internal) : [address] ? ? S High Ast (Sgot) 55 U/L 14-36 U/L Final No rth [facility] L ab (Internal) : [address] 03/10/2019 Procalcitonin, High Pct 5.1 NG/mL 0.0-0.5 F inal [place] Serum NG/mL [facility] L ab (Internal) : [address] 03/10/2019 Urinalysis, UR - UA-color dark pale Final [place] Dipstick, yellow yellow [facility] Lab (Internal) : [address] t ? ? UR ABNOR UA-appear cloudy clear Final [facility] ab (Internal) : [address] t ? ? UR - UA-spec 1.020 1.003-1.0 Final [place] Grav 35 [facility] L ab (Internal) : [address] t ? ? UR - UA-pH 5.5 [pH] 4.6-8.0 Final [place] [pH] [facility] L ab (Internal) : [address] t ? ? UR ABNOR UA-leuk small negative Final [facility] ab (Internal) : [address] t ? ? UR - UA-nitrite negative negative Final [facility] ab (Internal) : [address] t ? ? UR ABNOR UA-prot 1+ negative Final [facility] ab (Internal) : [address] t ? ? UR - UA-gluc negative negative Final [facility] ab (Internal) : [address] t ? ? UR - UA-ketone negative negative [facility] [address] ? ? UR - UA-urobil normal normal Final [facility] ab (Internal) : [address] t ? ? UR - UA-bili negative negative Final [facility] ab (Internal) : [address] t ? ? UR ABNOR UA-blood large negative Final [facility] ab (Internal) : [address] 03/10/2019 Urinalysis, UR ABNOR UA-WBC 50-100 0-3 [hpf] Earline [facility] [hpf] Count [facility] L ab (Internal) : [address] t ? ? UR ABNOR UA-RBC 5-10 0-2 [hpf] Final [facility] [hpf] [facility]) : [address] t ? ? UR ABNOR UA-bacteri many none seen Final No rth MAL a [hpf] [hpf] [facility] L ab (Internal) : [address] ? ? UR ABNOR UA-epithel few [hpf] none seen Final [facility] ial [hpf] [facility] L ab (Internal) : [address] ? ? UR - UA-mucus none seen none seen Final N orth [hpf] [hpf] [facility] Hospital L ab (Internal) : [address] 03/10/2019 Culture ([place] UR - Final microbiol ? F inal [place] Count), Urine ogy Cou ntry results Hospital Lab (Internal) : [address] 03/10/2019 Lactic Acid, S High La 3.1 0.7-2.1 Final [place] Blood mmol/L mmol/L [facility] Hospital L ab (Internal) : [address] 03/10/2019 BMP, Serum or S High g/r 204 mg/dL 74-106 Fin al [place] Plasma mg/dL [facility] L ab (Internal) : [address] t ? ? S High Bun 29 mg/dL 7-17 Final [place] mg/dL [facility] L ab (Internal) : [address] t ? ? S High Crea 1.30 0.52-1.04 Final [place] mg/dL mg/dL [facility] L ab (Internal) : [address] t ? ? S Low Ca 7.2 mg/dL 8.4-10.2 Final [place] mg/dL [facility] L ab (Internal) : [address] t ? ? S Low Na 135 137-145 Final [place] mmol/L mmol/L [facility] L ab (Internal) : [address] t ? ? S - K 4.4 3.5-5.1 Final [place] mmol/L mmol/L [facility] L ab (Internal) : [address] t ? ? S High Cl 110 98-107 Final [place] mmol/L mmol/L [facility] L ab (Internal) : [address] t ? ? S Low Tco2 18.0 22.0-30.0 Final [place] mmol/L mmol/L [facility] L ab (Internal) : [address] 03/10/2019 Thyroid S Low Tsh 0.07 0.47-4.68 Final No rth [place], Serum u[IU]/mL u[IU]/mL [facility] L ab (Internal) : [address] 03/10/2019 T4, Free, Serum S - Ft4 1.66 0.78-2.19 F inal [place] NG/dL NG/dL [facility] Hospital L ab (Internal) : [address] 01/28/2019 Cbc BLD - Wbc 6.6 5.0-10.0 Final Nort h 10*3/uL 10*3/uL [facility] Hospital L ab (Internal) : [address] ? ? BLD Low Rbc 3.24 4.10-5.30 Final [place] 10*6/uL 10*6/uL [facility] Hospital L ab (Internal) : [address] ? ? BLD Low Hgb 10.5 g/dL 12.0-16.0 Final Nort h g/dL [facility] Hospital L ab (Internal) : [address] ? ? BLD Low Hct 32.0 % 37.0-47.0 Final [facility] L ab (Internal) : [address] ? ? BLD High Mcv 98.8 fL 80.0-96.0 Final [facility] Hospital L ab (Internal) : [address] ? ? BLD High Mch 32.4 pg 26.0-32.0 Final [facility] L ab (Internal) : [address] ? ? BLD - Mchc 32.8 g/dL 31.0-35.0 Final Nort h g/dL [facility] L ab (Internal) : [address] ? ? BLD - Rdw 13.7 % 11.5-14.5 Final [facility] L ab (Internal) : [address] ? ? BLD Low Plt 92 130-450 Final [place] 10*3/uL 10*3/uL [facility] L ab (Internal) : [address] ? ? BLD - Anc 4.67 ? Final [place] 10*3/uL [facility] L ab (Internal) : [address] 01/28/2019 BMP, Serum or S High g/r 205 mg/dL 74-106 Fin al [place] Plasma mg/dL [facility] L ab (Internal) : [address] ? ? S High Bun 18 mg/dL 7-17 Final [place] mg/dL [facility] L ab (Internal) : [address] ? ? S - Crea 0.80 0.52-1.04 Final [place] mg/dL mg/dL [facility] L ab (Internal) : [address] t ? ? S - Ca 8.6 mg/dL 8.4-10.2 Final [place] mg/dL [facility] L ab (Internal) : [address] ? ? S Low Na 136 137-145 Final [place] mmol/L mmol/L [facility] L ab (Internal) : [address] ? ? S - K 4.4 3.5-5.1 Final [place] mmol/L mmol/L [facility] L ab (Internal) : [address] ? ? S - Cl 105 98-107 Final [place] mmol/L mmol/L [facility] L ab (Internal) : [address] ? ? S - Tco2 27.0 22.0-30.0 Final [place] mmol/L mmol/L [facility] L ab (Internal) : [address] 01/25/2019 Cbc BLD - Wbc 6.0 5.0-10.0 Final Nort h 10*3/uL 10*3/uL [facility] L ab (Internal) : [address] ? ? BLD Low Rbc 3.07 4.10-5.30 Final [place] 10*6/uL 10*6/uL [facility] L ab (Internal) : [address] ? ? BLD Low Hgb 9.9 g/dL 12.0-16.0 Final [place] g/dL [facility] L ab (Internal) : [address] ? ? BLD Low Hct 29.8 % 37.0-47.0 Final [place] % [facility] L ab (Internal) : [address] ? ? BLD High Mcv 97.1 fL 80.0-96.0 Final [place] fL [facility] L ab (Internal) : [address] t ? ? BLD High Mch 32.2 pg 26.0-32.0 Final [place] pg [facility] L ab (Internal) : [address] t ? ? BLD - Mchc 33.2 g/dL 31.0-35.0 Final Nort h g/dL [facility] L ab (Internal) : [address] ? ? BLD - Rdw 13.5 % 11.5-14.5 Final [place] % [facility] L ab (Internal) : [address] t ? ? BLD Low Plt 89 130-450 Final [place] 10*3/uL 10*3/uL [facility] L ab (Internal) : [address] ? ? BLD - Anc 3.80 ? Final [place] 10*3/uL [facility] L ab (Internal) : [address] 01/24/2019 BMP, Serum or S High g/r 138 mg/dL 74-106 Fin al [place] Plasma mg/dL [facility] L ab (Internal) : [address] ? ? S - Bun 12 mg/dL 7-17 Final [place] mg/dL [facility] L ab (Internal) : [address] ? ? S - Crea 0.80 0.52-1.04 Final [place] mg/dL mg/dL [facility] L ab (Internal) : [address] ? ? S - Ca 8.4 mg/dL 8.4-10.2 Final [place] mg/dL [facility] L ab (Internal) : [address] ? ? S Low Na 136 137-145 Final [place] mmol/L mmol/L [facility] L ab (Internal) : [address] ? ? S - K 4.5 3.5-5.1 Final [place] mmol/L mmol/L [facility] L ab (Internal) : [address] ? ? S - Cl 105 98-107 Final [place] mmol/L mmol/L [facility] L ab (Internal) : [address] ? ? S - Tco2 28.0 22.0-30.0 Final [place] mmol/L mmol/L [facility] L ab (Internal) : [address] 01/22/2019 Cbc BLD - Wbc 6.1 5.0-10.0 Final Nort h 10*3/uL 10*3/uL [facility] L ab (Internal) : [address] ? ? BLD Low Rbc 3.07 4.10-5.30 Final [place] 10*6/uL 10*6/uL [facility] L ab (Internal) : [address] ? ? BLD Low Hgb 9.8 g/dL 12.0-16.0 Final [place] g/dL [facility] L ab (Internal) : [address] ? ? BLD Low Hct 29.7 % 37.0-47.0 Final [facility] L ab (Internal) : [address] ? ? BLD High Mcv 96.7 fL 80.0-96.0 Final [facility] L ab (Internal) : [address] ? ? BLD - Mch 31.9 pg 26.0-32.0 Final [facility] L ab (Internal) : [address] ? ? BLD - Mchc 33.0 g/dL 31.0-35.0 [facility] L ab (Internal) : [address] ? ? BLD - Rdw 13.5 % 11.5-14.5 Final [facility] L ab (Internal) : [address] ? ? BLD Low Plt 96 130-450 Final [place] 10*3/uL 10*3/uL [facility] L ab (Internal) : [address] ? ? BLD - Anc 3.76 ? Final [place] 10*3/uL [facility] L ab (Internal) : [address] 01/21/2019 BMP, Serum or S High g/r 220 mg/dL 74-106 Fin al [place] Plasma mg/dL [facility] L ab (Internal) : [address] ? ? S - Bun 12 mg/dL 7-17 Final [place] mg/dL [facility] L ab (Internal) : [address] ? ? S - Crea 1.00 0.52-1.04 Final [place] mg/dL mg/dL [facility] L ab (Internal) : [address] t ? ? S Low Ca 8.3 mg/dL 8.4-10.2 Final [place] mg/dL [facility] L ab (Internal) : [address] t ? ? S Low Na 135 137-145 Final [place] mmol/L mmol/L [facility] L ab (Internal) : [address] t ? ? S - K 4.5 3.5-5.1 Final [place] mmol/L mmol/L [facility] L ab (Internal) : [address] ? ? S - Cl 105 98-107 Final [place] mmol/L mmol/L [facility] L ab (Internal) : [address] ? ? S - Tco2 27.0 22.0-30.0 Final [place] mmol/L mmol/L [facility] L ab (Internal) : [address] t 01/19/2019 Cbc BLD - Wbc 6.3 5.0-10.0 Final Nort h 10*3/uL 10*3/uL [facility] L ab (Internal) : [address] ? ? BLD Low Rbc 3.12 4.10-5.30 Final [place] 10*6/uL 10*6/uL [facility] L ab (Internal) : [address] t ? ? BLD Low Hgb 10.2 g/dL 12.0-16.0 Final Nort h g/dL [facility] L ab (Internal) : [address] ? ? BLD Low Hct 30.3 % 37.0-47.0 Final [place] % [facility] L ab (Internal) : [address] ? ? BLD High Mcv 97.1 fL 80.0-96.0 Final [place] fL [facility] L ab (Internal) : [address] ? ? BLD High Mch 32.7 pg 26.0-32.0 Final [place] pg [facility] L ab (Internal) : [address] ? ? BLD - Mchc 33.7 g/dL 31.0-35.0 Final Nort h g/dL [facility] L ab (Internal) : [address] ? ? BLD - Rdw 13.6 % 11.5-14.5 Final [place] % [facility] L ab (Internal) : [address] ? ? BLD Low Plt 95 130-450 Final [place] 10*3/uL 10*3/uL [facility] L ab (Internal) : [address] ? ? BLD - Anc 3.90 ? Final [place] 10*3/uL [facility] L ab (Internal) : [address] 01/18/2019 BMP, Serum or S High g/r 214 mg/dL 74-106 Fin al [place] Plasma mg/dL [facility] L ab (Internal) : [address] ? ? S - Bun 11 mg/dL 7-17 Final [place] mg/dL [facility] L ab (Internal) : [address] ? ? S - Crea 0.80 0.52-1.04 Final [place] mg/dL mg/dL [facility] L ab (Internal) : [address] ? ? S Low Ca 7.4 mg/dL 8.4-10.2 Final [place] mg/dL [facility] L ab (Internal) : [address] ? ? S Low Na 133 137-145 Final [place] mmol/L mmol/L [facility] L ab (Internal) : [address] ? ? S - K 4.2 3.5-5.1 Final [place] mmol/L mmol/L [facility] L ab (Internal) : [address] ? ? S - Cl 105 98-107 Final [place] mmol/L mmol/L [facility] L ab (Internal) : [address] ? ? S - Tco2 24.0 22.0-30.0 Final [place] mmol/L mmol/L [facility] L ab (Internal) : [address] 01/18/2019 Urinalysis, UR - UA-color yellow pale Final [place] Dipstick, yellow [facility] Lab (Internal) : [address] ? ? UR - UA-appear clear clear Final [facility] ab (Internal) : [address] ? ? UR - UA-spec 1.010 1.003-1.[address] ab (Internal) : [address] ? ? UR - UA-pH 6.0 [pH] 4.6-8.0 Final [place] [pH] [facility] : [address] t ? ? UR - UA-leuk negative negative Final Nort h [facility] ab (Internal) : [address] ? ? UR - UA-nitrite negative negative Final [facility] orth [facility] ([facility] : [address] t ? ? UR ABNOR UA-prot trace negative Final [facility] ab (Internal) : [address] ? ? UR - UA-gluc 1+ negative Final [facility] ab (Internal) : [address] t ? ? UR - UA-ketone negative negative Final No rth [facility] ([facility] : [address] t ? ? UR - UA-urobil normal normal Final [facility] ab (Internal) : [address] t ? ? UR - UA-bili negative negative Final [facility] ab (Internal) : [address] ? ? UR ABNOR UA-blood moderate negative Final [facility] ab (Internal) : [address] 01/18/2019 Urinalysis, UR - UA-WBC 0-3 [hpf] 0-3 [hpf] F inal [place] Microscopic Count [facility] ab (Internal) : [address] t ? ? UR ABNOR UA-RBC 5-10 0-2 [hpf] Final [facility] [hpf] [facility] : [address] t ? ? UR - UA-bacteri rare none seen Final No rth a [hpf] [hpf] [facility] ([facility] : [address] t ? ? UR ABNOR UA-epithel moderate none seen Final [facility] ial [hpf] [hpf] [facility] (Internal) : [address] ? ? UR - UA-mucus none seen none seen Final N orth [hpf] [hpf] [facility] L ab (Internal) : [address] 01/17/2019 Glucose, Serum S High g/r 388 mg/dL 74-106 Fi nal [place] or Plasma mg/dL [facility] L ab (Internal) : [address] 01/16/2019 Cbc BLD High Wbc 10.4 5.0-10.0 Final Nort h 10*3/uL 10*3/uL [facility] L ab (Internal) : [address] ? ? BLD Low Rbc 3.03 4.10-5.30 Final [place] 10*6/uL 10*6/uL [facility] L ab (Internal) : [address] ? ? BLD Low Hgb 9.8 g/dL 12.0-16.0 Final [place] g/dL [facility] L ab (Internal) : [address] ? ? BLD Low Hct 28.8 % 37.0-47.0 Final [facility] L ab (Internal) : [address] ? ? BLD - Mcv 95.0 fL 80.0-96.0 Final [facility] Hospital L ab (Internal) : [address] ? ? BLD High Mch 32.3 pg 26.0-32.0 Final [facility] L ab (Internal) : [address] ? ? BLD - Mchc 34.0 g/dL 31.0-35.0 [facility] L ab (Internal) : [address] ? ? BLD - Rdw 13.2 % 11.5-14.5 Final [facility] L ab (Internal) : [address] ? ? BLD Low Plt 81 130-450 Final [place] 10*3/uL 10*3/uL [facility] L ab (Internal) : [address] ? ? BLD - Anc 7.22 ? Final [place] 10*3/uL [facility] L ab (Internal) : [address] 01/16/2019 CMP, Serum or S High g/r 197 mg/dL 74-106 Fin al [place] Plasma mg/dL [facility] L ab (Internal) : [address] ? ? S - Bun 12 mg/dL 7-17 Final [place] mg/dL [facility] ab (Internal) : [address] ? ? S - Crea 0.80 0.52-1.04 Final [place] mg/dL mg/dL [facility] L ab (Internal) : [address] ? ? S Low Ca 7.3 mg/dL 8.4-10.2 Final [place] mg/dL [facility] ab (Internal) : [address] ? ? S Low Na 131 137-145 Final [place] mmol/L mmol/L [facility] L ab (Internal) : [address] ? ? S - K 3.7 3.5-5.1 Final [place] mmol/L mmol/L [facility] L ab (Internal) : [address] ? ? S - Cl 104 98-107 Final [place] mmol/L mmol/L [facility] ab (Internal) : [address] ? ? S - Tco2 23.0 22.0-30.0 Final [place] mmol/L mmol/L [facility] ab (Internal) : [address] ? ? S Low Tp 5.4 g/dL 6.3-8.2 Final [place] g/dL [facility] ab (Internal) : [address] ? ? S Low Alb 2.4 g/dL 3.5-5.0 Final [place] g/dL [facility] ab (Internal) : [address] ? ? S - Tbil 0.7 mg/dL 0.2-1.3 Final [place] mg/dL [facility] ab (Internal) : [address] ? ? S High Alp 140 U/L 38-126 Final [place] U/L [facility] ab (Internal) : [address] ? ? S - Alt (Sgpt) 39 U/L 9-52 U/L Final [facility] (Internal) : [address] ? ? S High Ast (Sgot) 46 U/L 14-36 U/L Final No rth [facility] L ab (Internal) : [address] 01/15/2019 Cbc BLD High Wbc 11.2 5.0-10.0 Final Nort h 10*3/uL 10*3/uL [facility] L ab (Internal) : [address] ? ? BLD Low Rbc 3.33 4.10-5.30 Final [place] 10*6/uL 10*6/uL [facility] L ab (Internal) : [address] ? ? BLD Low Hgb 10.7 g/dL 12.0-16.0 Final Nort h g/dL [facility] L ab (Internal) : [address] ? ? BLD Low Hct 32.0 % 37.0-47.0 Final [facility] L ab (Internal) : [address] ? ? BLD High Mcv 96.1 fL 80.0-96.0 Final [facility] Hospital L ab (Internal) : [address] ? ? BLD High Mch 32.1 pg 26.0-32.0 Final [facility] L ab (Internal) : [address] ? ? BLD - Mchc 33.4 g/dL 31.0-35.0 Final [facility] L ab (Internal) : [address] ? ? BLD - Rdw 13.3 % 11.5-14.5 Final [facility] L ab (Internal) : [address] ? ? BLD Low Plt 75 130-450 Final [place] 10*3/uL 10*3/uL [facility] L ab (Internal) : [address] ? ? BLD - Anc 7.95 ? Final [place] 10*3/uL [facility] L ab (Internal) : [address] 01/15/2019 Urinalysis, UR - UA-color yellow pale Final [place] Dipstick, yellow [facility] Lab (Internal) : [address] ? ? UR ABNOR UA-appear hazy clear Final [facility] ab (Internal) : [address] ? ? UR - UA-spec 1.020 1.003-1.[address] ab (Internal) : [address] ? ? UR - UA-pH 6.0 [pH] 4.6-8.0 Final [place] [pH] [facility] : [address] ? ? UR - UA-leuk negative negative Final [facility] ab (Internal) : [address] ? ? UR ABNOR UA-nitrite positive negative Final [facility] ab (Internal) : [address] ? ? UR ABNOR UA-prot 2+ negative Final [facility] ab (Internal) : [address] ? ? UR ABNOR UA-gluc 4+ negative Final [facility] ab (Internal) : [address] ? ? UR - UA-ketone negative negative Final No rth [facility] ([facility] : [address] ? ? UR - UA-urobil normal normal Final [facility] ab (Internal) : [address] ? ? UR - UA-bili negative negative Final [facility] ab (Internal) : [address] ? ? UR ABNOR UA-blood large negative Final [facility] ab (Internal) : [address] 01/15/2019 Urinalysis, UR ABNOR UA-WBC 5-10 0-3 [hpf] Earline [facility] [hpf] Count [facility] ab (Internal) : [address] t ? ? UR ABNOR UA-RBC >100 0-2 [hpf] Final [facility] [place]hpf] [facility] [place] [address] t ? ? UR ABNOR UA-bacteri few [hpf] none seen Final [facility] [hpf] [facility] [place] : [address] t ? ? UR ABNOR UA-epithel few [hpf] none seen Final [facility] ial [hpf] [facility] [place] : [address] t ? ? UR ABNOR UA-mucus few [hpf] none seen Final N orth MAL [hpf] [facility] ab (Internal) : [address] 01/15/2019 Culture ([place] UR - Final microbiol ? F inal [place] Count), Urine ogy Cou ntry results Hospital Lab (Internal) : [address] 01/14/2019 Cbc BLD High Wbc 10.7 5.0-10.0 Final Nort h 10*3/uL 10*3/uL [facility] ab (Internal) : [address] t ? ? BLD Low Rbc 3.33 4.10-5.30 Final [place] 10*6/uL 10*6/uL [facility] ab (Internal) : [address] t ? ? BLD Low Hgb 10.7 g/dL 12.0-16.0 Final Nort h g/dL [facility] ab (Internal) : [address] t ? ? BLD Low Hct 31.8 % 37.0-47.0 Final [facility] L ab (Internal) : [address] ? ? BLD - Mcv 95.5 fL 80.0-96.0 Final [facility] L ab (Internal) : [address] t ? ? BLD High Mch 32.1 pg 26.0-32.0 Final [facility] L ab (Internal) : [address] ? ? BLD - Mchc 33.6 g/dL 31.0-35.0 Final Nort h g/dL [facility] L ab (Internal) : [address] ? ? BLD - Rdw 13.2 % 11.5-14.5 Final [facility] L ab (Internal) : [address] ? ? BLD Low Plt 56 130-450 Final [place] 10*3/uL 10*3/uL [facility] L ab (Internal) : [address] ? ? BLD - Anc 8.27 ? Final [place] 10*3/uL [facility] ab (Internal) : [address] 01/14/2019 BMP, Serum or S High g/r 249 mg/dL 74-106 Fin al [place] Plasma mg/dL [facility] (Internal) : [address] t ? ? S - Bun 15 mg/dL 7-17 Final [place] mg/dL [facility] (Internal) : [address] t ? ? S - Crea 0.80 0.52-1.04 Final [place] mg/dL mg/dL [facility] ab (Internal) : [address] t ? ? S Low Ca 7.3 mg/dL 8.4-10.2 Final [place] mg/dL [facility] (Internal) : [address] ? ? S Low Na 133 137-145 Final [place] mmol/L mmol/L [facility] ab (Internal) : [address] ? ? S - K 4.0 3.5-5.1 Final [place] mmol/L mmol/L [facility] (Internal) : [address] ? ? S - Cl 106 98-107 Final [place] mmol/L mmol/L [facility] (Internal) : [address] t ? ? S Low Tco2 21.0 22.0-30.0 Final [place] mmol/L mmol/L [facility] (Internal) : [address] 01/13/2019 BMP, Serum or S High g/r 122 mg/dL 74-106 Fin al [place] Plasma mg/dL [facility] (Internal) : [address] ? ? S High Bun 18 mg/dL 7-17 Final [place] mg/dL [facility] (Internal) : [address] ? ? S - Crea 0.80 0.52-1.04 Final [place] mg/dL mg/dL [facility] ab (Internal) : [address] t ? ? S Low Ca 7.5 mg/dL 8.4-10.2 Final [place] mg/dL [facility] (Internal) : [address] t ? ? S Low Na 133 137-145 Final [place] mmol/L mmol/L [facility] ab (Internal) : [address] ? ? S - K 3.7 3.5-5.1 Final [place] mmol/L mmol/L [facility] ab (Internal) : [address] t ? ? S - Cl 106 98-107 Final [place] mmol/L mmol/L [facility] ab (Internal) : [address] t ? ? S - Tco2 22.0 22.0-30.0 Final [place] mmol/L mmol/L [facility] ab (Internal) : [address] 01/13/2019 Cbc BLD - Wbc 8.7 5.0-10.0 Final Nort h 10*3/uL 10*3/uL [facility] (Internal) : [address] ? ? BLD Low Rbc 3.26 4.10-5.30 Final [place] 10*6/uL 10*6/uL [facility] (Internal) : [address] ? ? BLD Low Hgb 10.8 g/dL 12.0-16.0 Final Nort h g/dL [facility] ab (Internal) : [address] ? ? BLD Low Hct 31.3 % 37.0-47.0 Final [facility] L ab (Internal) : [address] ? ? BLD - Mcv 96.0 fL 80.0-96.0 Final [facility] L ab (Internal) : [address] ? ? BLD High Mch 33.1 pg 26.0-32.0 Final [place] pg [facility] ab (Internal) : [address] t ? ? BLD - Mchc 34.5 g/dL 31.0-35.0 Final Nort h g/dL [facility] ab (Internal) : [address] ? ? BLD - Rdw 13.2 % 11.5-14.5 Final [facility] L ab (Internal) : [address] ? ? BLD Low Plt 53 130-450 Final [place] 10*3/uL 10*3/uL [facility] (Internal) : [address] ? ? BLD - Anc 6.67 ? Final [place] 10*3/uL [facility] (Internal) : [address] 01/12/2019 Cbc BLD - Wbc 9.9 5.0-10.0 Final Nort h 10*3/uL 10*3/uL [facility] ab (Internal) : [address] t ? ? BLD Low Rbc 3.33 4.10-5.30 Final [place] 10*6/uL 10*6/uL [facility] ab (Internal) : [address] t ? ? BLD Low Hgb 10.9 g/dL 12.0-16.0 Final Nort h g/dL [facility] ab (Internal) : [address] ? ? BLD Low Hct 31.9 % 37.0-47.0 Final [facility] L ab (Internal) : [address] ? ? BLD - Mcv 95.8 fL 80.0-96.0 Final [facility] L ab (Internal) : [address] ? ? BLD High Mch 32.7 pg 26.0-32.0 Final [facility] L ab (Internal) : [address] ? ? BLD - Mchc 34.2 g/dL 31.0-35.0 Final Nort h g/dL [facility] ab (Internal) : [address] ? ? BLD - Rdw 13.1 % 11.5-14.5 Final [facility] L ab (Internal) : [address] ? ? BLD Low Plt 59 130-450 Final [place] 10*3/uL 10*3/uL [facility] ab (Internal) : [address] ? ? BLD - Anc 7.03 ? Final [place] 10*3/uL [facility] ab (Internal) : [address] 01/12/2019 BMP, Serum or S High g/r 132 mg/dL 74-106 Fin al [place] Plasma mg/dL [facility] ab (Internal) : [address] ? ? S High Bun 23 mg/dL 7-17 Final [place] mg/dL [facility] ab (Internal) : [address] ? ? S - Crea 1.00 0.52-1.04 Final [place] mg/dL mg/dL [facility] (Internal) : [address] ? ? S Low Ca 7.7 mg/dL 8.4-10.2 Final [place] mg/dL [facility] (Internal) : [address] ? ? S Low Na 131 137-145 Final [place] mmol/L mmol/L [facility] (Internal) : [address] ? ? S - K 3.8 3.5-5.1 Final [place] mmol/L mmol/L [facility] (Internal) : [address] ? ? S - Cl 104 98-107 Final [place] mmol/L mmol/L [facility] ab (Internal) : [address] ? ? S - Tco2 22.0 22.0-30.0 Final [place] mmol/L mmol/L [facility] ab (Internal) : [address] 01/12/2019 HbA1C BLD High Ha1C 7.5 % 4.0-6.0 % Final Nor th (Hemoglobin Count ry a1C), Blood Hospi anna Lab (Internal) : [address] 01/11/2019 Lactic Acid, S - La 2.0 0.7-2.1 Final [place] Blood mmol/L mmol/L [facility] ab (Internal) : [address] 01/11/2019 Ammonia, QN, S - Marty 12 umol/L 9-30 Earline l [place] Plasma umol/L [facility] [address] [facility]2019 BMP, Serum or S High g/r 184 mg/dL 74-106 Fin al [place] Plasma mg/dL [facility] ab (Internal) : [address] ? ? S High Bun 24 mg/dL 7-17 Final [place] mg/dL [facility] ab (Internal) : [address] ? ? S - Crea 0.90 0.52-1.04 Final [place] mg/dL mg/dL [facility] ab (Internal) : [address] t ? ? S Low Ca 8.2 mg/dL 8.4-10.2 Final [place] mg/dL [facility] L ab (Internal) : [address] t ? ? S Low Na 129 137-145 Final [place] mmol/L mmol/L [facility] L ab (Internal) : [address] t ? ? S - K 4.5 3.5-5.1 Final [place] mmol/L mmol/L [facility] L ab (Internal) : [address] t ? ? S - Cl 99 mmol/L 98-107 Final [place] mmol/L [facility] L ab (Internal) : [address] ? ? S - Tco2 26.0 22.0-30.0 Final [place] mmol/L mmol/L [facility] L ab (Internal) : [address] 01/11/2019 Prothrombin BLD High Pt 12.3 S 9.1-11.7 Final [facility] L ab (Internal) : [address] ? ? BLD - Inr 1.3 ? Final [facility] L ab (Internal) : [address] 01/11/2019 Partial BLD - APTT (Op) 30 s 22-35 s Final [place] [facility] L ab (Internal) : [address] 01/11/2019 Culture, Blood BLD - Final microbiol ? Fi [address] Hospital Lab (Internal) : [address] 01/11/2019 Culture, Blood BLD - Final microbiol ? Fi [address] results Hospital Lab (Internal) : [address] 01/11/2019 CBC W/ Auto BLD - Wbc 8.5 5.0-10.0 Final [place] Diff 10*3/uL 10*3/uL [facility] ab (Internal) : [address] ? ? BLD Low Rbc 3.82 4.10-5.30 Final [place] 10*6/uL 10*6/uL [facility] L ab (Internal) : [address] ? ? BLD - Hgb 12.5 g/dL 12.0-16.0 Final Nort [facility] g/dL [facility] ab (Internal) : [address] t ? ? BLD Low Hct 36.7 % 37.0-47.0 Final [facility] L ab (Internal) : [address] t ? ? BLD High Mcv 96.1 fL 80.0-96.0 Final [facility] L ab (Internal) : [address] t ? ? BLD High Mch 32.7 pg 26.0-32.0 Final [facility] L ab (Internal) : [address] t ? ? BLD - Mchc 34.1 g/dL 31.0-35.0 Final Nort h g/dL [facility] L ab (Internal) : [address] t ? ? BLD - Rdw 13.1 % 11.5-14.5 Final [facility] L ab (Internal) : [address] t ? ? BLD Low Plt 52 130-450 Final [place] 10*3/uL 10*3/uL [facility] L ab (Internal) : [address] t ? ? BLD - Anc 6.38 ? Final [place] 10*3/uL [facility] L ab (Internal) : [address] t ? ? BLD High Neutro 75.3 % 40.0-75.0 Final [facility] L ab (Internal) : [address] t ? ? BLD Low Lymph 11.8 % 20.0-50.0 Final [facility] L ab (Internal) : [address] t ? ? BLD High [place] 10.9 % 2.0-10.0 Final [facility] L ab (Internal) : [address] t ? ? BLD Low Eos 0.9 % 1.0-6.0 % Final [facility] L ab (Internal) : [address] t ? ? BLD - Baso 0.7 % 0.0-1.0 % Final [facility] L ab (Internal) : [address] ? ? BLD - Ig 0.4 % 0.0-0.9 % Final [facility] ab (Internal) : [address] 01/11/2019 Lipid Panel, S - Chol 97 mg/dL 50-200 Final [place] Serum mg/dL [facility] L ab (Internal) : [address] t ? ? S - Trig 106 mg/dL 10-150 Final [place] mg/dL [facility] L ab (Internal) : [address] t ? ? S Low Hdl 32 mg/dL 40-60 Final [place] mg/dL [facility] L ab (Internal) : [address] t ? ? S - Ldl 44 mg/dL 0-130 Final [place] mg/dL [facility] ab (Internal) : [address] 01/11/2019 Hepatic S - Tbil 1.3 mg/dL 0.2-1.3 Final N orth Function Panel, mg/dL C [facility] L ab (Internal) : [address] ? ? S High Dbil 0.5 mg/dL 0.0-0.3 Final [place] mg/dL [facility] ab (Internal) : [address] t ? ? S - Alp 75 U/L 38-126 Final [place] U/L [facility] L ab (Internal) : [address] ? ? S - Alt (Sgpt) 23 U/L 9-52 U/L Final [facility] L ab (Internal) : [address] t ? ? S - Ast (Sgot) 31 U/L 14-36 U/L Final No rth [facility] ab (Internal) : [address] t ? ? S High Ggt 215 U/L 12-43 U/L Final [facility] ab (Internal) : [address] ? ? S - Tp 6.4 g/dL 6.3-8.2 Final [place] g/dL [facility] ab (Internal) : [address] ? ? S Low Alb 3.1 g/dL 3.5-5.0 Final [place] g/dL [facility] L ab (Internal) : [address] 01/11/2019 Thyroid S Low Tsh <0.02 0.47-4.68 Final No rth [place], Serum u[IU]/mL u[IU]/mL [facility] L ab (Internal) : [address] 01/11/2019 T4, Free, Serum S - Ft4 1.99 0.78-2.19 F inal [place] NG/dL NG/dL [facility] L ab (Internal) : [address] 01/11/2019 Urinalysis, UR - UA-color dark pale Final [place] Dipstick, yellow yellow [facility] Lab (Internal) : [address] t ? ? UR - UA-appear clear clear Final [facility] ab (Internal) : [address] ? ? UR - UA-spec 1.025 1.003-1.[address] L ab (Internal) : [address] ? ? UR - UA-pH 5.5 [pH] 4.6-8.0 Final [place] [pH] [facility] L ab (Internal) : [address] ? ? UR - UA-leuk negative negative Final [facility] L ab (Internal) : [address] ? ? UR - UA-nitrite negative negative Final N orth [facility] L ab (Internal) : [address] ? ? UR ABNOR UA-prot 2+ negative Final [facility] L ab (Internal) : [address] ? ? UR - UA-gluc negative negative Final [facility] L ab (Internal) : [address] ? ? UR - UA-ketone negative negative Final No [facility] L ab (Internal) : [address] ? ? UR - UA-urobil normal normal Final [facility] L ab (Internal) : [address] ? ? UR ABNOR UA-bili small negative Final [facility] L ab (Internal) : [address] ? ? UR ABNOR UA-blood large negative Final [facility] L ab (Internal) : [address] 01/11/2019 Urinalysis, UR - UA-WBC 0-3 [hpf] 0-3 [hpf] F inal [place] Microscopic Count ry Hospital L ab (Internal) : [address] ? ? UR ABNOR UA-RBC 50-100 0-2 [hpf] Final [place] MAL [hpf] [facility] L ab (Internal) : [address] ? ? UR - UA-bacteri rare none seen Final No rth a [hpf] [hpf] [facility] L ab (Internal) : [address] ? ? UR - UA-epithel rare none seen Final No rth ial [hpf] [hpf] [facility] L ab (Internal) : [address] ? ? UR - UA-mucus none seen none seen Final N orth [hpf] [hpf] [facility] L ab (Internal) : [address] 08/25/2018 CMP, Serum or S High g/r 141 mg/dL 74-106 Fin al [place] Plasma mg/dL [facility] L ab (Internal) : [address] ? ? S High Bun 19 mg/dL 7-17 Final [place] mg/dL [facility] L ab (Internal) : [address] ? ? S - Crea 0.90 0.52-1.04 Final [place] mg/dL mg/dL [facility] L ab (Internal) : [address] ? ? S - Ca 9.1 mg/dL 8.4-10.2 Final [place] mg/dL [facility] L ab (Internal) : [address] ? ? S Low Na 135 137-145 Final [place] mmol/L mmol/L [facility] L ab (Internal) : [address] ? ? S - K 4.7 3.5-5.1 Final [place] mmol/L mmol/L [facility] L ab (Internal) : [address] ? ? S - Cl 101 98-107 Final [place] mmol/L mmol/L [facility] L ab (Internal) : [address] ? ? S - Tco2 27.0 22.0-30.0 Final [place] mmol/L mmol/L [facility] L ab (Internal) : [address] ? ? S - Tp 7.1 g/dL 6.3-8.2 Final [place] g/dL [facility] L ab (Internal) : [address] ? ? S - Alb 3.6 g/dL 3.5-5.0 Final [place] g/dL [facility] L ab (Internal) : [address] t ? ? S - Tbil 1.0 mg/dL 0.2-1.3 Final [place] mg/dL [facility] L ab (Internal) : [address] t ? ? S - Alp 94 U/L 38-126 Final [place] U/L [facility] L ab (Internal) : [address] t ? ? S - Alt (Sgpt) 27 U/L 9-52 U/L Final [facility] (Internal) : [address] t ? ? S - Ast (Sgot) 35 U/L 14-36 U/L Final No rth [facility] L ab (Internal) : [address] t 08/25/2018 TSH, Serum or S Low Tsh <0.05 0.47-4.68 Fin al [place] Plasma u[IU]/mL u[IU]/mL [facility] L ab (Internal) : [address] t 06/17/2018 Culture ([place] UR - Final microbiol ? F inal [place] Count), Urine ogy Cou ntry results Hospital Lab (Internal) : [address] t 06/11/2018 HbA1C BLD High Ha1C 7.1 % 4.0-6.0 % Final [facility] (Hemoglobin Count ry a1C), Blood Hospi anna Lab (Internal) : [address] t 06/11/2018 BMP, Serum or S High g/r 133 mg/dL 74-106 Fin al [place] Plasma mg/dL [facility] L ab (Internal) : [address] ? ? S High Bun 20 mg/dL 7-17 Final [place] mg/dL [facility] L ab (Internal) : [address] ? ? S - Crea 0.80 0.52-1.04 Final [place] mg/dL mg/dL [facility] L ab (Internal) : [address] ? ? S - Ca 9.7 mg/dL 8.4-10.2 Final [place] mg/dL [facility] (Internal) : [address] ? ? S Low Na 135 137-145 Final [place] mmol/L mmol/L [facility] ab (Internal) : [address] t ? ? S - K 4.3 3.5-5.1 Final [place] mmol/L mmol/L [facility] ab (Internal) : [address] t ? ? S - Cl 102 98-107 Final [place] mmol/L mmol/L [facility] ab (Internal) : [address] t ? ? S - Tco2 25.0 22.0-30.0 Final [place] mmol/L mmol/L [facility] ab (Internal) : [address] 06/11/2018 TSH, Serum or S Low Tsh <0.05 0.47-4.68 Fin al [place] Plasma u[IU]/mL u[IU]/mL [facility] L ab (Internal) : [address] 03/05/2018 BMP, Serum or S - g/r 105 mg/dL 74-106 Fin al [place] Plasma mg/dL [facility] ab (Internal) : [address] ? ? S High Bun 20 mg/dL 7-17 Final [place] mg/dL [facility] (Internal) : [address] ? ? S - Crea 0.70 0.52-1.04 Final [place] mg/dL mg/dL [facility] ab (Internal) : [address] ? ? S - Ca 9.6 mg/dL 8.4-10.2 Final [place] mg/dL [facility] (Internal) : [address] ? ? S - Na 139 137-145 Final [place] mmol/L mmol/L [facility] ab (Internal) : [address] ? ? S - K 5.1 3.5-5.1 Final [place] mmol/L mmol/L [facility] ab (Internal) : [address] ? ? S - Cl 106 98-107 Final [place] mmol/L mmol/L [facility] ab (Internal) : [address] ? ? S - Tco2 25.0 22.0-30.0 Final [place] mmol/L mmol/L [facility] L ab (Internal) : [address] 03/05/2018 HbA1C BLD High Ha1C 6.2 % 4.0-6.0 % Final Nor th (Hemoglobin Count ry a1C), Blood Hospi anna Lab (Internal) : [address] 03/05/2018 Microalbumin, UR - Malb <7.0 mg/L 5.0-16.7 F inal [place] Urine mg/L [facility] L ab (Internal) : [address] ? ? UR Low U-crea, 24 mg/dL 30-125 Final [place] Spot mg/dL [facility] (Internal[facility] : [address] [facility] 03/05/2018 Ferritin, Serum S - Ferr 121 NG/mL 11-264 F inal [place] or Plasma NG/mL [facility] L ab (Internal) : [address] [facility] 03/05/2018 TSH, Serum or S Low Tsh <0.05 0.47-4.68 Fin al [place] Plasma u[IU]/mL u[IU]/mL [facility] L ab (Internal) : [address] 01/29/2018 BMP, Serum or S High g/r 249 mg/dL 74-106 Fin [facility] Plasma mg/dL [facility] L ab (Internal) : [address] ? ? S High Bun 20 mg/dL 7-17 Final [place] mg/dL [facility] L ab (Internal) : [address] ? ? S - Crea 0.80 0.52-1.04 Final [place] mg/dL mg/dL [facility] L ab (Internal) : [address] ? ? S - Ca 9.1 mg/dL 8.4-10.2 Final [place] mg/dL [facility] L ab (Internal) : [address] ? ? S Low Na 135 137-145 Final [place] mmol/L mmol/L [facility] L ab (Internal) : [address] ? ? S - K 4.6 3.5-5.1 Final [place] mmol/L mmol/L [facility] ab (Internal) : [address] ? ? S - Cl 104 98-107 Final [place] mmol/L mmol/L [facility] (Internal) : [address] ? ? S - Tco2 24.0 22.0-30.0 Final [place] mmol/L mmol/L [facility] ab (Internal) : [address] 01/14/2018 BMP, Serum or S High g/r 261 mg/dL 74-106 Fin al [place] Plasma mg/dL [facility] (Internal) : [address] ? ? S High Bun 23 mg/dL 7-17 Final [place] mg/dL [facility] (Internal) : [address] ? ? S - Crea 0.70 0.52-1.04 Final [place] mg/dL mg/dL [facility] (Internal) : [address] ? ? S - Ca 9.0 mg/dL 8.4-10.2 Final [place] mg/dL [facility] (Internal) : [address] ? ? S - Na 137 137-145 Final [place] mmol/L mmol/L [facility] (Internal) : [address] ? ? S - K 4.9 3.5-5.1 Final [place] mmol/L mmol/L [facility] (Internal) : [address] ? ? S - Cl 106 98-107 Final [place] mmol/L mmol/L [facility] (Internal) : [address] ? ? S - Tco2 25.0 22.0-30.0 Final [place] mmol/L mmol/L [facility] (Internal) : [address] 12/17/2017 BMP, Serum or S High g/r 165 mg/dL 74-106 Fin al [place] Plasma mg/dL [facility] (Internal) : [address] ? ? S High Bun 22 mg/dL 7-17 Final [place] mg/dL [facility] (Internal) : [address] ? ? S - Crea 0.70 0.52-1.04 Final [place] mg/dL mg/dL [facility] (Internal) : [address] ? ? S - Ca 9.3 mg/dL 8.4-10.2 Final [place] mg/dL [facility] (Internal) : [address] ? ? S Low Na 136 137-145 Final [place] mmol/L mmol/L [facility] (Internal) : [address] ? ? S - K 4.8 3.5-5.1 Final [place] mmol/L mmol/L [facility] (Internal) : [address] ? ? S - Cl 105 98-107 Final [place] mmol/L mmol/L [facility] (Internal) : [address] ? ? S - Tco2 24.0 22.0-30.0 Final [place] mmol/L mmol/L [facility] (Internal) : [address] 12/03/2017 BMP, Serum or S High g/r 300 mg/dL 74-106 Fin al [place] Plasma mg/dL [facility] (Internal) : [address] ? ? S High Bun 25 mg/dL 7-17 Final [place] mg/dL [facility] (Internal) : [address] ? ? S - Crea 0.70 0.52-1.04 Final [place] mg/dL mg/dL [facility] (Internal) : [address] ? ? S - Ca 9.1 mg/dL 8.4-10.2 Final [place] mg/dL [facility] (Internal) : [address] ? ? S Low Na 135 137-145 Final [place] mmol/L mmol/L [facility] (Internal) : [address] ? ? S - K 4.6 3.5-5.1 Final [place] mmol/[place] mmol/L [facility] : [address] ? ? S - Cl 103 98-107 Final [place] mmol/L mmol/L [facility] ([facility] : [address] ? ? S - Tco2 24.0 22.0-30.0 Final [place] mmol/L mmol/L [facility] ([facility]) : [address] 11/19/2017 BMP, Serum or S High g/r 201 mg/dL 74-106 Fin al [place] Plasma mg/dL [facility] ([facility]) : [address] ? ? S High Bun 29 mg/dL 7-17 Final [place] mg/dL [facility] ([facility]) : [address] ? ? S - Crea 0.80 0.52-1.04 Final [place] mg/dL mg/dL [facility] ([facility]) : [address] ? ? S - Ca 9.1 mg/dL 8.4-10.2 Final [place] mg/dL [facility] ([facility]) : [address] ? ? S Low Na 135 137-145 Final [place] mmol/L mmol/L [facility] ([facility]) : [address] ? ? S - K 4.6 3.5-5.1 Final [place] mmol/L mmol/L [facility] ([facility]) : [address] t ? ? S - Cl 102 98-107 Final [place] mmol/L mmol/L [facility] ([facility]) : [address] ? ? S - Tco2 26.0 22.0-30.0 Final [place] mmol/L mmol/L [facility] ([facility]) : [address] 11/06/2017 BMP, Serum or S High g/r 121 mg/dL 74-106 Fin al [place] Plasma mg/dL [facility] ([facility]) : [address] ? ? S High Bun 27 mg/dL 7-17 Final [place] mg/dL [facility] ([facility]) : [address] ? ? S ? Crea 0.80 0.52-1.04 Final [place] mg/dL mg/dL [facility] ([facility]) : [address] ? ? S ? Ca 9.2 mg/dL 8.4-10.2 Final [place] mg/dL [facility] ([facility]) : [address] ? ? S Low Na 134 137-145 Final [place] mmol/L mmol/L [facility] ([facility]) : [address] ? ? S ? K 4.9 3.5-5.1 Final [place] mmol/L mmol/L [facility] ([facility]) : [address] t ? ? S ? Cl 103 98-107 Final [place] mmol/L mmol/L [facility] ([facility]) : [address] ? ? S ? Tco2 25.0 22.0-30.0 Final [place] mmol/L mmol/L [facility] ([facility]) : [address] 10/16/2017 Venipuncture BLD ? Venpn* ? ? Final [place] [facility] : [address] 10/16/2017 BMP, Serum or S High g/r 250 mg/dL 74-106 Fin al [place] Plasma mg/dL [facility] ([facility]) : [address] ? ? S High Bun 28 mg/dL 7-17 Final [place] mg/dL [facility] ([facility]) : [address] ? ? S ? Crea 0.70 0.52-1.04 Final [place] mg/dL mg/dL [facility] (Internal) : [address] ? ? S ? Ca 9.3 mg/dL 8.4-10.2 Final [place] mg/dL [facility] ([facility]) : [address] ? ? S ? Na 137 137-145 Final [place] mmol/L mmol/L [facility] (Internal) : [address] ? ? S ? K 4.7 3.5-5.1 Final [place] mmol/L mmol/L [facility] ([facility]) : [address] ? ? S ? Cl 103 98-107 Final [place] mmol/L mmol/L [facility] ([facility]) : [address] ? ? S ? Tco2 26.0 22.0-30.0 Final [place] mmol/L mmol/L [facility] ([facility]) : [address] 10/01/2017 TIBC (Total SERUM Low Tibc 259 ug/dL 265-[address] [facility] Iron-binding ug/dL Coun try Capacity), Hospit al Lab Serum (Internal) : [address] 10/01/2017 Iron, Serum SERUM ? Iron 69 ug/dL 37-170 Final [place] ug/dL [facility] L ab (Internal) : [address] 10/01/2017 Neutrophil BLD ? Anc-manual 2.12 ? Earline l [place] Count, Absolute 10*3/uL [facility] (Anc), Blood Hosp ital Lab (Internal) : [address] 10/01/2017 Differential, BLD ? Polys 49 % 40-75 % Final [facility], Blood [facility] L ab (Internal) : [address] ? ? BLD ? Bands 0 % 0-5 % Final [facility] L ab (Internal) : [address] ? ? BLD ? Lymphs 26 % 20-50 % Final [facility] L ab (Internal) : [address] ? ? BLD High [place] 13 % 2-10 % Final [facility] L ab (Internal) : [address] ? ? BLD High Eos 10 % 0-6 % Final [facility] L ab (Internal) : [address] ? ? BLD High Baso 2 % 0-1 % Final [facility] L ab (Internal) : [address] ? ? BLD ? Atyp Lymph 0 % ? Final [facility] L ab (Internal) : [address] ? ? BLD ABNOR Plts, Est. low adequate Final [facility] L ab (Internal) : [address] ? ? BLD ? RBC normal normal Final [facility] L ab (Internal) : [address] 10/01/2017 Ferritin, Serum S ? Ferr 46 NG/mL 11-264 Fi nal [place] or Plasma NG/mL [facility] L ab (Internal) : [address] 10/01/2017 CBC W/ Auto BLD Low Wbc 4.3 5.0-10.0 Final [place] Diff 10*3/uL 10*3/uL [facility] ([facility]) : [address] t ? ? BLD Low Rbc 3.21 4.10-5.30 Final [place] 10*6/uL 10*6/uL [facility] ([facility]) : [address] ? ? BLD Low Hgb 10.1 g/dL 12.0-16.0 Final Nort h g/dL [facility] L ab (Internal) : [address] ? ? BLD Low Hct 30.7 % 37.0-47.0 Final [facility] L ab (Internal) : [address] ? ? BLD ? Mcv 95.6 fL 80.0-96.0 Final [facility] L ab (Internal) : [address] ? ? BLD ? Mch 31.5 pg 26.0-32.0 Final [facility] L ab (Internal) : [address] ? ? BLD ? Mchc 32.9 g/dL 31.0-35.0 Final Nort h g/dL [facility] L ab (Internal) : [address] t ? ? BLD ? Rdw 13.2 % 11.5-14.5 Final [facility] L ab (Internal) : [address] ? ? BLD Low Plt 71 130-450 Final [place] 10*3/uL 10*3/uL [facility] L ab (Internal) : [address] 09/23/2017 HbA1C BLD ? Ha1C 5.8 % 4.0-6.0 % Final [place] (Hemoglobin Count ry a1C), Blood Hospi anna Lab (Internal) : [address] 09/23/2017 BMP, Serum or S High g/r 111 mg/dL 74-106 Fin al [place] Plasma mg/dL [facility] ([facility]) : [address] ? ? S High Bun 23 mg/dL 7-17 Final [place] mg/dL [facility] L ab (Internal) : [address] ? ? S ? Crea 0.70 0.52-1.04 Final [place] mg/dL mg/dL [facility] L ab (Internal) : [address] ? ? S ? Ca 9.3 mg/dL 8.4-10.2 Final [place] mg/dL [facility] L ab (Internal) : [address] ? ? S Low Na 135 137-145 Final [place] mmol/L mmol/L [facility] L ab (Internal) : [address] ? ? S ? K 4.6 3.5-5.1 Final [place] mmol/L mmol/L [facility] L ab (Internal) : [address] t ? ? S ? Cl 103 98-107 Final [place] mmol/L mmol/L [facility] L ab (Internal) : [address] ? ? S ? Tco2 25.0 22.0-30.0 Final [place] mmol/L mmol/L [facility] L ab (Internal) : [address] t 09/23/2017 Hepatic S ? Tbil 1.0 mg/dL 0.2-1.3 Final N orth Function Panel, mg/dL [facility] L ab (Internal) : [address] ? ? S ? Dbil 0.3 mg/dL 0.0-0.3 Final [place] mg/dL [facility] L ab (Internal) : [address] ? ? S ? Alp 107 U/L 38-126 Final [place] U/L [facility] L ab (Internal) : [address] ? ? S ? Alt (Sgpt) 30 U/L 9-52 U/L Final [facility] L ab (Internal) : [address] ? ? S High Ast (Sgot) 38 U/L 14-36 U/L Final No rth [facility] L ab (Internal) : [address] ? ? S High Ggt 130 U/L 12-43 U/L Final [facility] L ab (Internal) : [address] ? ? S ? Tp 6.6 g/dL 6.3-8.2 Final [place] g/dL [facility] L ab (Internal) : [address] ? ? S Low Alb 3.1 g/dL 3.5-5.0 Final [place] g/dL [facility] L ab (Internal) : [address] 09/17/2017 Venipuncture BLD ? Venpn* ? ? Final [facility] L ab (Internal) : [address] 09/17/2017 BMP, Serum or S High g/r 250 mg/dL 74-106 Fin al [place] Plasma mg/dL [facility] (Internal) : [address] ? ? S High Bun 19 mg/dL 7-17 Final [place] mg/dL [facility] (Internal) : [address] ? ? S ? Crea 0.80 0.52-1.04 Final [place] mg/dL mg/dL [facility] (Internal) : [address] ? ? S ? Ca 9.1 mg/dL 8.4-10.2 Final [place] mg/dL [facility] (Internal) : [address] ? ? S Low Na 133 137-145 Final [place] mmol/L mmol/L [facility] (Internal) : [address] ? ? S ? K 4.3 3.5-5.1 Final [place] mmol/L mmol/L [facility] (Internal) : [address] ? ? S Low Cl 97 mmol/L 98-107 Final [place] mmol/L [facility] (Internal) : [address] ? ? S ? Tco2 27.0 22.0-30.0 Final [place] mmol/L mmol/L [facility] (Internal) : [address] 09/11/2017 Venipuncture BLD ? Venpn* ? ? Final [facility] L ab (Internal) : [address] 09/11/2017 BMP, Serum or S High g/r 176 mg/dL 74-106 Fin al [place] Plasma mg/dL [facility] (Internal) : [address] ? ? S High Bun 22 mg/dL 7-17 Final [place] mg/dL [facility] (Internal) : [address] ? ? S ? Crea 0.70 0.52-1.04 Final [place] mg/dL mg/dL [facility] (Internal) : [address] ? ? S ? Ca 9.4 mg/dL 8.4-10.2 Final [place] mg/dL [facility] (Internal) : [address] ? ? S Low Na 136 137-145 Final [place] mmol/L mmol/L [facility] (Internal) : [address] ? ? S ? K 4.3 3.5-5.1 Final [place] mmol/L mmol/L [facility] (Internal) : [address] ? ? S ? Cl 102 98-107 Final [place] mmol/L mmol/L [facility] (Internal) : [address] ? ? S ? Tco2 26.0 22.0-30.0 Final [place] mmol/L mmol/L [facility] (Internal) : [address] 09/03/2017 BMP, Serum or PLASMA High g/r 223 mg/dL 74-106 Fin al [place] Plasma mg/dL [facility] (Internal) : [address] ? ? PLASMA High Bun 25 mg/dL 7-17 Final [place] mg/dL [facility] (Internal) : [address] ? ? PLASMA ? Crea 0.80 0.52-1.04 Final [place] mg/dL mg/dL [facility] (Internal) : [address] ? ? PLASMA ? Ca 9.2 mg/dL 8.4-10.2 Final [place] mg/dL [facility] (Internal) : [address] ? ? PLASMA Low Na 135 137-145 Final [place] mmol/L mmol/L [facility] (Internal) : [address] ? ? PLASMA ? K 4.4 3.5-5.1 Final [place] mmol/L mmol/L [facility] (Internal) : [address] ? ? PLASMA ? Cl 101 98-107 Final [place] mmol/L mmol/L [facility] (Internal) : [address] ? ? PLASMA ? Tco2 26.0 22.0-30.0 Final [place] mmol/L mmol/L [facility] (Internal) : [address] 08/26/2017 BMP, Serum or S High g/r 134 mg/dL 74-106 Fin al [place] Plasma mg/dL [facility] (Internal) : [address] ? ? S High Bun 24 mg/dL 7-17 Final [place] mg/dL [facility] (Internal) : [address] ? ? S ? Crea 0.70 0.52-1.04 Final [place] mg/dL mg/dL [facility] (Internal) : [address] ? ? S ? Ca 9.0 mg/dL 8.4-10.2 Final [place] mg/dL [facility] (Internal) : [address] ? ? S ? Na 138 137-145 Final [place] mmol/L mmol/L [facility] (Internal) : [address] ? ? S ? K 4.6 3.5-5.1 Final [place] mmol/L mmol/L [facility] (Internal) : [address] ? ? S ? Cl 104 98-107 Final [place] mmol/L mmol/L [facility] (Internal) : [address] ? ? S ? Tco2 24.0 22.0-30.0 Final [place] mmol/L mmol/L [facility] (Internal) : [address] 08/20/2017 Venipuncture BLD ? Venpn* ? ? Final [place] [facility] ([facility]) : [address] 08/20/2017 BMP, Serum or S High g/r 151 mg/dL 74-106 Fin al [place] Plasma mg/dL [facility] (Internal) : [address] ? ? S High Bun 29 mg/dL 7-17 Final [place] mg/dL [facility] (Internal) : [address] ? ? S ? Crea 0.70 0.52-1.04 Final [place] mg/dL mg/dL [facility] (Internal) : [address] ? ? S ? Ca 9.3 mg/dL 8.4-10.2 Final [place] mg/dL [facility] (Internal) : [address] ? ? S ? Na 141 137-145 Final [place] mmol/L mmol/L [facility] (Internal) : [address] ? ? S ? K 4.7 3.5-5.1 Final [place] mmol/L mmol/L [facility] (Internal) : [address] ? ? S ? Cl 107 98-107 Final [place] mmol/L mmol/L [facility] (Internal) : [address] ? ? S ? Tco2 26.0 22.0-30.0 Final [place] mmol/L mmol/L [facility] (Internal) : [address] 08/14/2017 Venipuncture BLD ? Venpn* ? ? Final [place] [facility] ([facility] : [address] 08/14/2017 BMP, Serum or S High g/r 143 mg/dL 74-106 Fin al [place] Plasma mg/dL [facility] (Internal) : [address] ? ? S High Bun 27 mg/dL 7-17 Final [place] mg/dL [facility] (Internal) : [address] ? ? S ? Crea 0.80 0.52-1.04 Final [place] mg/dL mg/dL [facility] (Internal) : [address] ? ? S ? Ca 9.0 mg/dL 8.4-10.2 Final [place] mg/dL [facility] (Internal) : [address] ? ? S ? Na 138 137-145 Final [place] mmol/L mmol/L [facility] (Internal) : [address] ? ? S ? K 4.3 3.5-5.1 Final [place] mmol/L mmol/L [facility] (Internal) : [address] ? ? S High Cl 108 98-107 Final [place] mmol/L mmol/L [facility] (Internal) : [address] ? ? S ? Tco2 24.0 22.0-30.0 Final [place] mmol/L mmol/L [facility] (Internal) : [address] 08/06/2017 Venipuncture BLD ? Venpn* ? ? Final [place] [facility] (Internal) : [address] 08/06/2017 BMP, Serum or S High g/r 165 mg/dL 74-106 Fin al [place] Plasma mg/dL [facility] (Internal) : [address] ? ? S High Bun 25 mg/dL 7-17 Final [place] mg/dL [facility] (Internal) : [address] ? ? S ? Crea 0.70 0.52-1.04 Final [place] mg/dL mg/dL [facility] (Internal) : [address] ? ? S ? Ca 8.6 mg/dL 8.4-10.2 Final [place] mg/dL [facility] (Internal) : [address] ? ? S ? Na 139 137-145 Final [place] mmol/L mmol/L [facility] (Internal) : [address] ? ? S ? K 4.3 3.5-5.1 Final [place] mmol/L mmol/L [facility] (Internal) : [address] ? ? S ? Cl 104 98-107 Final [place] mmol/L mmol/L [facility] (Internal) : [address] ? ? S ? Tco2 27.0 22.0-30.0 Final [place] mmol/L mmol/L [facility] (Internal) : [address] 07/24/2017 BMP, Serum or PLASMA High g/r 128 mg/dL 74-106 Fin al [place] Plasma mg/dL [facility] (Internal) : [address] ? ? PLASMA ? Bun 17 mg/dL 7-17 Final [place] mg/dL [facility] (Internal) : [address] ? ? PLASMA ? Crea 0.70 0.52-1.04 Final [place] mg/dL mg/dL [facility] (Internal) : [address] ? ? PLASMA ? Ca 8.6 mg/dL 8.4-10.2 Final [place] mg/dL [facility] (Internal) : [address] ? ? PLASMA Low Na 136 137-145 Final [place] mmol/L mmol/L [facility] (Internal) : [address] ? ? PLASMA ? K 4.2 3.5-5.1 Final [place] mmol/L mmol/L [facility] (Internal) : [address] ? ? PLASMA ? Cl 105 98-107 Final [place] mmol/L mmol/L [facility] (Internal) : [address] ? ? PLASMA ? Tco2 25.0 22.0-30.0 Final [place] mmol/L mmol/L [facility] (Internal) : [address] 07/16/2017 BMP, Serum or S High g/r 177 mg/dL 74-106 Fin al [place] Plasma mg/dL [facility] (Internal) : [address] ? ? S High Bun 23 mg/dL 7-17 Final [place] mg/dL [facility] (Internal) : [address] ? ? S ? Crea 0.80 0.52-1.04 Final [place] mg/dL mg/dL [facility] (Internal) : [address] ? ? S ? Ca 8.5 mg/dL 8.4-10.2 Final [place] mg/dL [facility] (Internal) : [address] ? ? S Low Na 136 137-145 Final [place] mmol/L mmol/L [facility] (Internal) : [address] ? ? S ? K 4.2 3.5-5.1 Final [place] mmol/L mmol/L [facility] (Internal) : [address] ? ? S ? Cl 104 98-107 Final [place] mmol/L mmol/L [facility] (Internal) : [address] ? ? S ? Tco2 27.0 22.0-30.0 Final [place] mmol/L mmol/L [facility] (Internal) : [address] 07/09/2017 BMP, Serum or PLASMA High g/r 160 mg/dL 74-106 Fin al [place] Plasma mg/dL [facility] (Internal) : [address] ? ? PLASMA High Bun 23 mg/dL 7-17 Final [place] mg/dL [facility] (Internal) : [address] ? ? PLASMA ? Crea 0.70 0.52-1.04 Final [place] mg/dL mg/dL [facility] (Internal) : [address] ? ? PLASMA ? Ca 8.7 mg/dL 8.4-10.2 Final [place] mg/dL [facility] (Internal) : [address] ? ? PLASMA Low Na 135 137-145 Final [place] mmol/L mmol/L [facility] (Internal) : [address] ? ? PLASMA ? K 4.3 3.5-5.1 Final [place] mmol/L mmol/L [facility] (Internal) : [address] ? ? PLASMA ? Cl 104 98-107 Final [place] mmol/L mmol/L [facility] (Internal) : [address] ? ? PLASMA ? Tco2 24.0 22.0-30.0 Final [place] mmol/L mmol/L [facility] (Internal) : [address] 06/25/2017 Venipuncture BLD ? Venpn* ? ? Final [facility] ([facility]) : [address] 06/25/2017 BMP, Serum or S High g/r 224 mg/dL 74-106 Fin al [place] Plasma mg/dL [facility] (Internal) : [address] ? ? S High Bun 25 mg/dL 7-17 Final [place] mg/dL [facility] (Internal) : [address] ? ? S ? Crea 0.90 0.52-1.04 Final [place] mg/dL mg/dL [facility] (Internal) : [address] ? ? S ? Ca 8.7 mg/dL 8.4-10.2 Final [place] mg/dL [facility] (Internal) : [address] ? ? S ? Na 137 137-145 Final [place] mmol/L mmol/L [facility] (Internal) : [address] ? ? S ? K 4.3 3.5-5.1 Final [place] mmol/L mmol/L [facility] (Internal) : [address] ? ? S ? Cl 104 98-107 Final [place] mmol/L mmol/L [facility] (Internal) : [address] ? ? S ? Tco2 26.0 22.0-30.0 Final [place] mmol/L mmol/L [facility] (Internal) : [address] 06/18/2017 Venipuncture BLD ? Venpn* ? ? Final [facility] L ab (Internal) : [address] 06/18/2017 TIBC (Total SERUM Low Tibc 252 ug/dL 265-497 Earline l [place]-binding ug/dL Coun try Capacity), Hospit al Lab Serum (Internal) : [address] 06/18/2017 Iron, Serum SERUM ? Iron 116 ug/dL 37-170 Final [place] ug/dL [facility] L ab (Internal) : [address] 06/18/2017 BMP, Serum or S High g/r 156 mg/dL 74-106 Fin al [place] Plasma mg/dL [facility] (Internal) : [address] ? ? S High Bun 19 mg/dL 7-17 Final [place] mg/dL [facility] (Internal) : [address] ? ? S ? Crea 0.90 0.52-1.04 Final [place] mg/dL mg/dL [facility] (Internal) : [address] ? ? S ? Ca 8.8 mg/dL 8.4-10.2 Final [place] mg/dL [facility] (Internal) : [address] ? ? S Low Na 136 137-145 Final [place] mmol/L mmol/L [facility] (Internal) : [address] ? ? S ? K 4.0 3.5-5.1 Final [place] mmol/L mmol/L [facility] (Internal) : [address] ? ? S ? Cl 99 mmol/L 98-107 Final [place] mmol/L [facility] L ab (Internal) : [address] ? ? S ? Tco2 28.0 22.0-30.0 Final [place] mmol/L mmol/L [facility] L ab (Internal) : [address] 06/18/2017 Hepatic S ? Tbil 0.9 mg/dL 0.2-1.3 Final N orth Function Panel[facility] [address] ? ? S High Dbil 0.5 mg/dL 0.0-0.3 Final [place] mg/dL [facility] L ab (Internal) : [address] ? ? S ? Alp 97 U/L 38-126 Final [place] U/L [facility] L ab (Internal) : [address] ? ? S ? Alt (Sgpt) 37 U/L 9-52 U/L Final [facility] L ab (Internal) : [address] ? ? S High Ast (Sgot) 37 U/L 14-36 U/L Final No rth [facility] L ab (Internal) : [address] ? ? S High Ggt 137 U/L 12-43 U/L Final [facility] L ab (Internal) : [address] ? ? S ? Tp 6.6 g/dL 6.3-8.2 Final [place] g/dL [facility] L ab (Internal) : [address] ? ? S Low Alb 3.1 g/dL 3.5-5.0 Final [place] g/dL [facility] L ab (Internal) : [address] 06/18/2017 Ferritin, Serum S ? Ferr 58 NG/mL 11-264 Fi nal [place] or Plasma NG/mL [facility] L ab (Internal) : [address] 06/18/2017 CBC W/ Auto BLD ? Wbc 5.4 5.0-10.0 Final [place] Diff 10*3/uL 10*3/uL [facility] L ab (Internal) : [address] ? ? BLD Low Rbc 3.31 4.10-5.30 Final [place] 10*6/uL 10*6/uL [facility] L ab (Internal) : [address] ? ? BLD Low Hgb 9.9 g/dL 12.0-16.0 Final [place] g/dL [facility] L ab (Internal) : [address] ? ? BLD Low Hct 30.4 % 37.0-47.0 Final [facility] Hospital L ab (Internal) : [address] ? ? BLD ? Mcv 91.8 fL 80.0-96.0 Final [facility] Hospital L ab (Internal) : [address] ? ? BLD ? Mch 29.9 pg 26.0-32.0 Final [place] pg [facility] L ab (Internal) : [address] ? ? BLD ? Mchc 32.6 g/dL 31.0-35.0 Final Nort h g/dL [facility] L ab (Internal) : [address] ? ? BLD ? Rdw 14.0 % 11.5-14.5 Final [facility] Hospital L ab (Internal) : [address] ? ? BLD Low Plt 95 130-450 Final [place] 10*3/uL 10*3/uL [facility] L ab (Internal) : [address] ? ? BLD ? Anc 3.20 ? Final [place] 10*3/uL [facility] L ab (Internal) : [address] ? ? BLD ? Neutro 59.4 % 40.0-75.0 Final [facility] Hospital L ab (Internal) : [address] ? ? BLD ? Lymph 22.7 % 20.0-50.0 Final [facility] Hospital L ab (Internal) : [address] ? ? BLD High [place] 11.2 % 2.0-10.0 Final [facility] Hospital L ab (Internal) : [address] ? ? BLD ? Eos 5.2 % 1.0-6.0 % Final [facility] L ab (Internal) : [address] ? ? BLD High Baso 1.1 % 0.0-1.0 % Final [facility] L ab (Internal) : [address] ? ? BLD ? Ig 0.4 % 0.0-0.9 % Final [facility] L ab (Internal) : [address] 06/11/2017 BMP, Serum or S High g/r 108 mg/dL 74-106 Fin al [place] Plasma mg/dL [facility] ([facility] : [address] ? ? S High Bun 20 mg/dL 7-17 Final [place] mg/dL [facility] (Internal) : [address] ? ? S ? Crea 0.90 0.52-1.04 Final [place] mg/dL mg/dL [facility] (Internal) : [address] ? ? S ? Ca 9.0 mg/dL 8.4-10.2 Final [place] mg/dL [facility] (Internal) : [address] ? ? S ? Na 139 137-145 Final [place] mmol/L mmol/L [facility] (Internal) : [address] ? ? S ? K 4.2 3.5-5.1 Final [place] mmol/L mmol/L [facility] (Internal) : [address] [address] t ? ? S ? Cl 102 98-107 [facility] [place] mmol/L [facility]/L [facility] : [address] ? ? S ? Tco2 26.0 22.0-30.0 Final [place] mmol/L mmol/L [facility] : [address] 06/04/2017 Venipuncture BLD ? Venpn* ? ? Final [facility] (Internal) : [address] 06/04/2017 BMP, Serum or S High g/r 166 mg/dL 74-106 Fin al [place] Plasma mg/dL [facility] ([facility] : [address] ? ? S ? Bun 16 mg/dL 7-17 Final [place] mg/dL [facility] ([facility] : [address] ? ? S ? Crea 0.90 0.52-1.04 Final [place] mg/dL mg/dL [facility] ([facility]) : [address] ? ? S ? Ca 8.5 mg/dL 8.4-10.2 Final [place] mg/dL [facility] ([facility] : [address] ? ? S Low Na 136 137-145 Final [place] mmol/L mmol/L [facility] ([facility]) : [address] ? ? S ? K 4.2 3.5-5.1 Final [place] mmol/L mmol/L [facility] ([facility] : [address] ? ? S ? Cl 102 98-107 Final [place] mmol/L mmol/L [facility] ([facility] : [address] ? ? S ? Tco2 26.0 22.0-30.0 Final [place] mmol/L mmol/L [facility] ([facility] : [address] 05/28/2017 Venipuncture BLD ? Venpn* ? ? Final [place] [facility] ([facility] : [address] 05/28/2017 BMP, Serum or S High g/r 207 mg/dL 74-106 Fin al [place] Plasma mg/dL [facility] ([facility] : [address] ? ? S High Bun 21 mg/dL 7-17 Final [place] mg/dL [facility] ([facility] : [address] ? ? S ? Crea 1.00 0.52-1.04 Final [place] mg/dL mg/dL [facility] ([facility]) : [address] ? ? S ? Ca 8.6 mg/dL 8.4-10.2 Final [place] mg/dL [facility] ([facility] : [address] ? ? S Low Na 136 137-145 Final [place] mmol/L mmol/L [facility] ([facility]) : [address] ? ? S ? K 4.2 3.5-5.1 Final [place] mmol/L mmol/L [facility] ([facility]) : [address] ? ? S ? Cl 102 98-107 Final [place] mmol/L mmol/L [facility] ([facility] : [address] ? ? S ? Tco2 26.0 22.0-30.0 Final [place] mmol/L mmol/L [facility] L [facility] (Internal) : [address] 05/21/2017 Venipuncture BLD ? Venpn* ? ? Final [facility] (Internal) : [address] 05/21/2017 Gamma-glutamyl S High Ggt 98 U/L 12-43 U/L Fi nal [place] Transferase Count ry (Ggt), Serum Hosp ital Lab (Internal) : [address] 05/21/2017 CMP, Serum or S ? g/r 103 mg/dL 74-106 Fin al [place] Plasma mg/dL [facility] : [address] ? ? S High Bun 19 mg/dL 7-17 Final [place] mg/dL [facility] L [facility] (Internal) : [address] ? ? S ? Crea 0.90 0.52-1.04 Final [place] mg/dL mg/dL [facility] L [facility] (Internal) : [address] ? ? S Low Ca 8.3 mg/dL 8.4-10.2 Final [place] mg/dL [facility] : [address] ? ? S Low Na 134 137-145 Final [place] mmol/L mmol/L [facility] L [facility] (Internal) : [address] ? ? S ? K 4.3 3.5-5.1 Final [place] mmol/L mmol/L [facility] ([facility] : [address] ? ? S ? Cl 103 98-107 Final [place] mmol/L mmol/L [facility] ([facility] : [address] ? ? S ? Tco2 25.0 22.0-30.0 Final [place] mmol/L mmol/L [facility] ([facility] : [address] ? ? S Low Tp 5.4 g/dL 6.3-8.2 Final [place] g/dL [facility] ([facility] : [address] ? ? S Low Alb 2.4 g/dL 3.5-5.0 Final [place] g/dL [facility] ([facility] : [address] ? ? S ? Tbil 0.9 mg/dL 0.2-1.3 Final [place] mg/dL [facility] ([facility] : [address] ? ? S ? Alp 82 U/L 38-126 Final [place] U/L [facility] ([facility] : [address] ? ? S ? Alt (Sgpt) 32 U/L 9-52 U/L Final [facility] : [address] ? ? S ? Ast (Sgot) 29 U/L 14-36 U/L Final No [facility]th [facility] ([facility] : [address] 05/14/2017 BMP, Serum or S High g/r 128 mg/dL 74-106 Fin al [place] Plasma mg/dL [facility] ([facility] : [address] ? ? S High Bun 24 mg/dL 7-17 Final [place] mg/dL [facility] ([facility] : [address] ? ? S ? Crea 0.90 0.52-1.04 Final [place] mg/dL mg/dL [facility] ([facility] : [address] ? ? S ? Ca 8.4 mg/dL 8.4-10.2 Final [place] mg/dL [facility] : [address] ? ? S Low Na 136 137-145 Final [place] mmol/L mmol/L [facility] ([facility] : [address] ? ? S ? K 4.3 3.5-5.1 Final [place] mmol/L mmol/L [facility] ([facility] : [address] ? ? S High Cl 109 98-107 Final [place] mmol/L mmol/L [facility] ([facility]) : [address] ? ? S ? Tco2 22.0 22.0-30.0 Final [place] mmol/L mmol/L [facility] ([facility] : [address] 05/08/2017 BMP, Serum or S High g/r 162 mg/dL 74-106 Fin al [place] Plasma mg/dL [facility] ([facility] : [address] ? ? S High Bun 24 mg/dL 7-17 Final [place] mg/dL [facility] ([facility] : [address] ? ? S ? Crea 0.90 0.52-1.04 Final [place] mg/dL mg/dL [facility] ([facility]) : [address] ? ? S Low Ca 8.2 mg/dL 8.4-10.2 Final [place] mg/dL [facility] ([facility] : [address] ? ? S Low Na 133 137-145 Final [place] mmol/L mmol/L [facility] ([facility]) : [address] ? ? S ? K 4.2 3.5-5.1 Final [place] mmol/L mmol/L [facility] ([facility] : [address] ? ? S ? Cl 103 98-107 Final [place] mmol/L mmol/L [facility] ([facility] : [address] ? ? S ? Tco2 24.0 22.0-30.0 Final [place] mmol/L mmol/L [facility] ([facility] : [address] 04/30/2017 Venipuncture BLD ? Venpn* ? ? Final [facility] : [address] 04/30/2017 BMP, Serum or S High g/r 134 mg/dL 74-106 Fin al [place] Plasma mg/dL [facility] ([facility] : [address] ? ? S ? Bun 15 mg/dL 7-17 Final [place] mg/dL [facility] ([facility] : [address] ? ? S ? Crea 0.90 0.52-1.04 Final [place] mg/dL mg/dL [facility] (Internal) : [address] ? ? S Low Ca 8.1 mg/dL 8.4-10.2 Final [place] mg/dL [facility] ([facility] : [address] ? ? S Low Na 133 137-145 Final [place] mmol/L mmol/L [facility] ([facility]) : [address] ? ? S ? K 3.9 3.5-5.1 Final [place] mmol/L mmol/L [facility] ([facility] : [address] ? ? S ? Cl 100 98-107 Final [place] mmol/L mmol/L [facility] ([facility]) : [address] ? ? S ? Tco2 26.0 22.0-30.0 Final [place] mmol/L mmol/L [facility] ([facility]) : [address] 04/22/2017 Venipuncture BLD ? Venpn* ? ? Final [facility] : [address] 04/22/2017 BMP, Serum or S High g/r 150 mg/dL 74-106 Fin al [place] Plasma mg/dL [facility] ([facility] : [address] ? ? S High Bun 21 mg/dL 7-17 Final [place] mg/dL [facility] ([facility]) : [address] ? ? S ? Crea 0.90 0.52-1.04 Final [place] mg/dL mg/dL [facility] (Internal) : [address] ? ? S ? Ca 8.4 mg/dL 8.4-10.2 Final [place] mg/dL [facility] ([facility] : [address] ? ? S Low Na 135 137-145 Final [place] mmol/L mmol/L [facility] (Internal) : [address] ? ? S ? K 4.4 3.5-5.1 Final [place] mmol/L mmol/L [facility] ([facility]) : [address] ? ? S ? Cl 100 98-107 Final [place] mmol/L mmol/L [facility] ([facility]) : [address] ? ? S ? Tco2 28.0 22.0-30.0 Final [place] mmol/L mmol/L [facility] ([facility]) : [address] 04/17/2017 Venipuncture BLD ? Venpn* ? ? Final [facility] : [address] 04/17/2017 BMP, Serum or S High g/r 128 mg/dL 74-106 Fin al [place] Plasma mg/dL [facility] ([facility] : [address] ? ? S High Bun 25 mg/dL 7-17 Final [place] mg/dL [facility] ([facility]) : [address] ? ? S ? Crea 0.90 0.52-1.04 Final [place] mg/dL mg/dL [facility] (Internal) : [address] ? ? S ? Ca 8.4 mg/dL 8.4-10.2 Final [place] mg/dL [facility] ([facility] : [address] ? ? S Low Na 136 137-145 Final [place] mmol/L mmol/L [facility] (Internal) : [address] ? ? S ? K 4.2 3.5-5.1 Final [place] mmol/L mmol/L [facility] (Internal) : [address] ? ? S ? Cl 101 98-107 Final [place] mmol/L mmol/L [facility] (Internal) : [address] ? ? S ? Tco2 25.0 22.0-30.0 Final [place] mmol/L mmol/L [facility] (Internal) : [address] 04/09/2017 BMP, Serum or S High g/r 122 mg/dL 74-106 Fin al [place] Plasma mg/dL [facility] ([facility] : [address] ? ? S High Bun 26 mg/dL 7-17 Final [place] mg/dL [facility] ([facility]) : [address] ? ? S ? Crea 0.80 0.52-1.04 Final [place] mg/dL mg/dL [facility] (Internal) : [address] ? ? S Low Ca 8.3 mg/dL 8.4-10.2 Final [place] mg/dL [facility] (Internal[facility] : [address] ? ? S Low Na 135 137-145 Final [place] mmol/L mmol/L [facility] (Internal) : [address] ? ? S ? K 4.7 3.5-5.1 Final [place] mmol/L mmol/L [facility] (Internal) : [address] ? ? S ? Cl 102 98-107 Final [place] mmol/L mmol/L [facility] (Internal) : [address] ? ? S ? Tco2 26.0 22.0-30.0 Final [place] mmol/L mmol/L [facility] ([facility]) : [address] 04/04/2017 Venipuncture BLD ? Venpn* ? ? Final [place] [facility] (Internal) : [address] 04/04/2017 RBC Morphology, BLD ? Macro occasiona ? F inal [place] Blood l [facility] ([facility] : [address] 04/04/2017 BMP, Serum or PLASMA High g/r 110 mg/dL 74-106 Fin al [place] Plasma mg/dL [facility] (Internal) : [address] ? ? PLASMA High Bun 27 mg/dL 7-17 Final [place] mg/dL [facility] (Internal) : [address] ? ? PLASMA ? Crea 0.90 0.52-1.04 Final [place] mg/dL mg/dL [facility] (Internal) : [address] ? ? PLASMA Low Ca 8.1 mg/dL 8.4-10.2 Final [place] mg/dL [facility] ([facility]) : [address] ? ? PLASMA Low Na 134 137-145 Final [place] mmol/L mmol/L [facility] (Internal) : [address] ? ? PLASMA ? K 3.9 3.5-5.1 Final [place] mmol/L mmol/L [facility] (Internal) : [address] ? ? PLASMA ? Cl 103 98-107 Final [place] mmol/L mmol/L [facility] (Internal) : [address] ? ? PLASMA ? Tco2 22.0 22.0-30.0 Final [place] mmol/L mmol/L [facility] (Internal) : [address] 04/04/2017 CBC W/ Auto BLD Low Wbc 4.8 5.0-10.0 Final [place] Diff 10*3/uL 10*3/uL [facility] L [facility] (Internal) : [address] ? ? BLD Low Rbc 2.46 4.10-5.30 Final [place] 10*6/uL 10*6/uL [facility] L ab (Internal) : [address] ? ? BLD Low Hgb 8.2 g/dL 12.0-16.0 Final [place] g/dL [facility] L [facility] (Internal) : [address] ? ? BLD Low Hct 24.8 % 37.0-47.0 Final [facility] L ab (Internal) : [address] ? ? BLD High Mcv 100.8 fL 80.0-96.0 Final [facility] L ab (Internal) : [address] ? ? BLD High Mch 33.3 pg 26.0-32.0 Final [facility] L ab (Internal) : [address] ? ? BLD ? Mchc 33.1 g/dL 31.0-35.0 Final Nort h g/dL [facility] L ab (Internal) : [address] ? ? BLD ? Rdw 14.3 % 11.5-14.5 Final [facility] L ab (Internal) : [address] ? ? BLD Low Plt 72 130-450 Final [place] 10*3/uL 10*3/uL [facility] L ab (Internal) : [address] ? ? BLD ? Anc 3.02 ? Final [place] 10*3/uL [facility] L ab (Internal) : [address] ? ? BLD ? Neutro 62.6 % 40.0-75.0 Final [facility] L ab (Internal) : [address] ? ? BLD Low Lymph 17.6 % 20.0-50.0 Final [facility] L ab (Internal) : [address] ? ? BLD High [place] 11.8 % 2.0-10.0 Final [facility] L ab (Internal) : [address] ? ? BLD High Eos 6.4 % 1.0-6.0 % Final [facility] L ab (Internal) : [address] ? ? BLD ? Baso 0.6 % 0.0-1.0 % Final [facility] L [facility] (Internal) : [address] ? ? BLD High Ig 1.0 % 0.0-0.9 % Final [facility] L ab (Internal) : [address] 04/04/2017 Prothrombin BLD High Pt 13.4 S 9.1-11.7 Final [facility] L ab (Internal) : [address] ? ? BLD ? Inr 1.3 ? Final [facility] L ab (Internal) : [address] 03/27/2017 Venipuncture BLD ? Venpn* ? ? Final [facility] (Internal) : [address] 03/27/2017 BMP, Serum or S ? g/r 103 mg/dL 74-106 Fin al [place] Plasma mg/dL [facility] L [facility] (Internal) : [address] ? ? S High Bun 27 mg/dL 7-17 Final [place] mg/dL [facility] (Internal) : [address] ? ? S ? Crea 0.80 0.52-1.04 Final [place] mg/dL mg/dL [facility] L [facility] (Internal) : [address] ? ? S Low Ca 8.1 mg/dL 8.4-10.2 Final [place] mg/dL [facility] (Internal) : [address] ? ? S Low Na 135 137-145 Final [place] mmol/L mmol/L [facility] (Internal) : [address] ? ? S Low K 3.2 3.5-5.1 Final [place] mmol/L mmol/L [facility] L [facility] (Internal) : [address] ? ? S ? Cl 106 98-107 Final [place] mmol/L mmol/L [facility] ([facility] : [address] ? ? S Low Tco2 20.0 22.0-30.0 Final [place] mmol/L mmol/L [facility] ([facility] : [address] 03/24/2017 Venipuncture BLD ? Venpn* ? ? Final [facility] : [address] 03/24/2017 BMP, Serum or S High g/r 171 mg/dL 74-106 Fin al [place] Plasma mg/dL [facility] (Internal[facility] : [address] ? ? S High Bun 29 mg/dL 7-17 Final [place] mg/dL [facility] (Internal) : [address] ? ? S ? Crea 0.90 0.52-1.04 Final [place] mg/dL mg/dL [facility] (Internal) : [address] ? ? S Low Ca 8.2 mg/dL 8.4-10.2 Final [place] mg/dL [facility] (Internal) : [address] ? ? S Low Na 133 137-145 Final [place] mmol/L mmol/L [facility] (Internal) : [address] ? ? S ? K 4.1 3.5-5.1 Final [place] mmol/L mmol/L [facility] (Internal) : [address] ? ? S High Cl 109 98-107 Final [place] mmol/L mmol/L [facility] (Internal) : [address] ? ? S Low Tco2 18.0 22.0-30.0 Final [place] mmol/L mmol/L [facility] (Internal) : [address] 03/17/2017 BMP, Serum or S High g/r 155 mg/dL 74-106 Fin al [place] Plasma mg/dL [facility] (Internal) : [address] ? ? S High Bun 28 mg/dL 7-17 Final [place] mg/dL [facility] (Internal) : [address] ? ? S ? Crea 0.80 0.52-1.04 Final [place] mg/dL mg/dL [facility] (Internal) : [address] ? ? S Low Ca 8.3 mg/dL 8.4-10.2 Final [facility] mg/dL [facility] (Internal) : [address] ? ? S Low Na 127 137-145 Final [place] mmol/L mmol/L [facility] (Internal) : [address] ? ? S High K 5.7 3.5-5.1 Final [place] mmol/L mmol/L [facility] (Internal) : [address] ? ? S ? Cl 102 98-107 Final [place] mmol/L mmol/L [facility] (Internal) : [address] ? ? S Low Tco2 19.0 22.0-30.0 Final [place] mmol/L mmol/L [facility] (Internal) : [address] 03/13/2017 Venipuncture BLD ? Venpn* ? ? Final [place] [facility] (Internal) : [address] 03/13/2017 BMP, Serum or S ? g/r 105 mg/dL 74-106 Fin al [place] Plasma mg/dL [facility] (Internal[facility] : [address] ? ? S High Bun 50 mg/dL 7-17 Final [place] mg/dL [facility] (Internal[facility] : [address] ? ? S High Crea 1.40 0.52-1.04 Final [place] mg/dL mg/dL [facility] (Internal) : [address] ? ? S ? Ca 8.5 mg/dL 8.4-10.2 Final [facility] mg/dL [facility] ([facility] : [address] ? ? S CRITI Na 124 137-145 Final North [place] mmol/L mmol/L [facility] L ab (Internal) : [address] ? ? S High K 5.3 3.5-5.1 Final [place] mmol/L mmol/L [facility] (Internal) : [address] ? ? S ? Cl 98 mmol/L 98-107 Final [facility] mmol/L [facility] (Internal) : [address] ? ? S Low Tco2 19.0 22.0-30.0 Final [place] mmol/L mmol/L [facility] (Internal) : [address] 03/12/2017 Venipuncture BLD ? Venpn* ? ? Final [facility] L ab (Internal) : [address] 03/12/2017 BMP, Serum or PLASMA ? g/r 104 mg/dL 74-106 Fin al [place] Plasma mg/dL [facility] ([facility] : [address] ? ? PLASMA High Bun 54 mg/dL 7-17 Final [place] mg/dL [facility] (Internal[facility] : [address] ? ? PLASMA High Crea 1.30 0.52-1.04 Final [place] mg/dL mg/dL [facility] (Internal) : [address] ? ? PLASMA ? Ca 8.8 mg/dL 8.4-10.2 Final [facility] mg/dL [facility] ([facility] : [address] ? ? PLASMA CRITI Na 124 137-145 Final North [place] mmol/L mmol/L [facility] (Internal[facility] : [address] ? ? PLASMA High K 5.6 3.5-5.1 Final [place] mmol/L mmol/L [facility] (Internal) : [address] ? ? PLASMA ? Cl 98 mmol/L 98-107 Final [place] mmol/L [facility] L ab (Internal) : [address] ? ? PLASMA Low Tco2 19.0 22.0-30.0 Final [place] mmol/L mmol/L [facility] (Internal) : [address] 03/11/2017 Venipuncture BLD ? Venpn* ? ? Final [facility] L ab (Internal) : [address] 03/11/2017 Lactic Acid, PLASMA High La 6.2 0.7-2.1 Final [place] Blood mmol/L mmol/L [facility] (Internal) : [address] 03/11/2017 Phosphorus, PLASMA ? Phos 2.9 mg/dL 2.5-4.5 [facility] Serum or Plasma mg/dL [facility] L ab (Internal) : [address] 03/11/2017 Ammonia, QN, S High Marty 37 umol/L 9-30 Earline l [place] Plasma umol/L [facility] L ab (Internal) : [address] 03/11/2017 Magnesium, QN, PLASMA ? mg 1.9 mg/dL 1.6-2.3 F inal [place] Serum or Plasma mg/dL [facility] L ab (Internal) : [address] 03/11/2017 Neutrophil BLD ? Anc-manual 8.48 ? [facility] Count, Absolute 10*3/uL Country (Anc), Blood Hosp ital Lab (Internal) : [address] 03/11/2017 Differential, BLD High Polys 77 % 40-75 % Final [facility] Blood [facility] L ab (Internal) : [address] ? ? BLD ? Bands 0 % 0-5 % Final [facility] L ab (Internal) : [address] ? ? BLD Low Lymphs 10 % 20-50 % Final [facility] ab (Internal) : [address] ? ? BLD ? [place] 5 % 2-10 % Final [facility] ab (Internal) : [address] ? ? BLD ? Eos 3 % 0-6 % Final [facility] L ab (Internal) : [address] ? ? BLD ? Baso 1 % 0-1 % Final [facility] L ab (Internal) : [address] ? ? BLD ? Atyp Lymph 0 % ? Final [facility] L ab (Internal) : [address] ? ? BLD ? [place] 4 % ? Final [facility] ab (Internal) : [address] ? ? BLD ? Plts, Est. adequate adequate Final [facility] L ab (Internal) : [address] ? ? BLD ABNOR RBC abnormal normal Final [facility] L ab (Internal) : [address] ? ? BLD ? [place] small ? Final [facility] L ab (Internal) : [address] 03/11/2017 Partial BLD ? APTT (Op) 25 s 22-35 s Final [place] [facility] [address] 03/11/2017 Prothrombin BLD ? Pt 11.2 S 9.1-11.7 Final [facility] L ab (Internal) : [address] ? ? BLD ? Inr 1.1 ? Final [facility] L ab (Internal) : [address] 03/11/2017 CMP, Serum or S High g/r 158 mg/dL 74-106 Fin al [place] Plasma mg/dL [facility] L ab (Internal) : [address] ? ? S High Bun 55 mg/dL 7-17 Final [place] mg/dL [facility] L ab (Internal) : [address] ? ? S High Crea 1.40 0.52-1.04 Final [place] mg/dL mg/dL [facility] L ab (Internal) : [address] ? ? S ? Ca 8.5 mg/dL 8.4-10.2 Final [place] mg/dL [facility] L ab (Internal) : [address] ? ? S CRITI Na 124 137-145 Final [place]AYDE mmol/L mmol/L [facility] L ab (Internal) : [address] ? ? S High K 5.8 3.5-5.1 Final [place] mmol/L mmol/L [facility] L ab (Internal) : [address] ? ? S Low Cl 95 mmol/L 98-107 Final [place] mmol/L [facility] L ab (Internal) : [address] ? ? S CRITI Tco2 15.0 22.0-30.0 Final [place] mmol/L mmol/L [facility] L ab (Internal) : [address] ? ? S ? Tp 6.6 g/dL 6.3-8.2 Final [place] g/dL [facility] L ab (Internal) : [address] ? ? S Low Alb 3.1 g/dL 3.5-5.0 Final [place] g/dL [facility] L ab (Internal) : [address] ? ? S ? Tbil 1.3 mg/dL 0.2-1.3 Final [place] mg/dL [facility] L ab (Internal) : [address] ? ? S High Alp 159 U/L 38-126 Final [place] U/L [facility] L ab (Internal) : [address] ? ? S ? Alt (Sgpt) 52 U/L 9-52 U/L Final Nor th [facility] L ab (Internal) : [address] ? ? S High Ast (Sgot) 61 U/L 14-36 U/L Final No rth [facility] L ab (Internal) : [address] 03/11/2017 CBC W/ Auto BLD High Wbc 11.0 5.0-10.0 Final [place] Diff 10*3/uL 10*3/uL [facility] L ab (Internal) : [address] ? ? BLD Low Rbc 3.85 4.10-5.30 Final [place] 10*6/uL 10*6/uL [facility] L ab (Internal) : [address] ? ? BLD ? Hgb 12.7 g/dL 12.0-16.0 Final Nort h g/dL [facility] L ab (Internal) : [address] ? ? BLD ? Hct 37.1 % 37.0-47.0 Final [place] % [facility] L ab (Internal) : [address] ? ? BLD High Mcv 96.4 fL 80.0-96.0 Final [place] fL [facility] L ab (Internal) : [address] ? ? BLD High Mch 33.0 pg 26.0-32.0 Final [place] pg [facility] L ab (Internal) : [address] ? ? BLD ? Mchc 34.2 g/dL 31.0-35.0 Final Nort h g/dL [facility] L ab (Internal) : [address] ? ? BLD High Rdw 15.2 % 11.5-14.5 Final [facility] L ab (Internal) : [address] ? ? BLD ? Plt 209 130-450 Final Kill [place] 10*3/uL 10*3/uL [facility] L ab (Internal) : [address] 03/02/2017 RBC Morphology, BLD ? Aniso small ? Earline l [facility] L ab (Internal) : [address] 03/02/2017 CBC W/ Auto BLD ? Wbc 6.1 5.0-10.0 Final [place] Diff 10*3/uL 10*3/uL [facility] L ab (Internal) : [address] ? ? BLD Low Rbc 3.75 4.10-5.30 Final [place] 10*6/uL 10*6/uL [facility] L ab (Internal) : [address] ? ? BLD ? Hgb 12.2 g/dL 12.0-16.0 Final Nort h g/dL [facility] L ab (Internal) : [address] t ? ? BLD Low Hct 34.5 % 37.0-47.0 Final [facility] L ab (Internal) : [address] ? ? BLD ? Mcv 92.0 fL 80.0-96.0 Final [facility] L ab (Internal) : [address] ? ? BLD High Mch 32.5 pg 26.0-32.0 Final [facility] L ab (Internal) : [address] t ? ? BLD High Mchc 35.4 g/dL 31.0-35.0 Final Nort h g/dL [facility] L ab (Internal) : [address] ? ? BLD High Rdw 15.3 % 11.5-14.5 Final [facility] L ab (Internal) : [address] ? ? BLD Low Plt 120 130-450 Final [place] 10*3/uL 10*3/uL [facility] L ab (Internal) : [address] t ? ? BLD ? Anc 4.52 ? Final [place] 10*3/uL [facility] L [facility] ([facility]) : [address] t ? ? BLD ? Neutro 73.6 % 40.0-75.0 Final [facility] L ab (Internal) : [address] t ? ? BLD Low Lymph 13.1 % 20.0-50.0 Final [facility] L ab (Internal) : [address] t ? ? BLD ? [place] 9.6 % 2.0-10.0 Final [facility] L ab (Internal) : [address] t ? ? BLD ? Eos 2.0 % 1.0-6.0 % Final [facility] L ab (Internal) : [address] t ? ? BLD ? Baso 1.0 % 0.0-1.0 % Final [facility] L ab (Internal) : [address] t ? ? BLD ? Ig 0.7 % 0.0-0.9 % Final [facility] L ab (Internal) : [address] 03/02/2017 CMP, Serum or S High g/r 157 mg/dL 74-106 Fin al [place] Plasma mg/dL [facility] L ab (Internal) : [address] t ? ? S High Bun 44 mg/dL 7-17 Final [place] mg/dL [facility] L ab (Internal) : [address] t ? ? S High Crea 1.20 0.52-1.04 Final [place] mg/dL mg/dL [facility] L ab (Internal) : [address] t ? ? S ? Ca 9.3 mg/dL 8.4-10.2 Final [place] mg/dL [facility] L ab (Internal) : [address] t ? ? S Low Na 133 137-145 Final [place] mmol/L mmol/L [facility] L ab (Internal) : [address] t ? ? S ? K 3.6 3.5-5.1 Final [place] mmol/L mmol/L [facility] L ab (Internal) : [address] t ? ? S ? Cl 100 98-107 Final [place] mmol/L mmol/L [facility] L ab (Internal) : [address] t ? ? S ? Tco2 22.0 22.0-30.0 Final [place] mmol/L mmol/L [facility] L ab (Internal) : [address] t ? ? S ? Tp 6.7 g/dL 6.3-8.2 Final [place] g/dL [facility] L ab (Internal) : [address] t ? ? S Low Alb 3.2 g/dL 3.5-5.0 Final [place] g/dL [facility] L ab (Internal) : [address] t ? ? S High Tbil 1.5 mg/dL 0.2-1.3 Final [place] mg/dL [facility] L ab (Internal) : [address] t ? ? S High Alp 137 U/L 38-126 Final [place] U/L [facility] L ab (Internal) : [address] t ? ? S ? Alt (Sgpt) 35 U/L 9-52 U/L Final [facility] L ab (Internal) : [address] t ? ? S High Ast (Sgot) 38 U/L 14-36 U/L Final No rth [facility] L ab (Internal) : [address] 03/01/2017 D-dimer, Quant, PLASMA High Dimq 2.46 mg/L 0.00-0.5 0 Final [place] Plasma mg/L [facility] L ab (Internal) : [address] 03/01/2017 RBC Morphology, BLD ? Aniso small ? Earline l [place] Blood [facility] L ab (Internal) : [address] 03/01/2017 Ammonia, QN, S High Marty 36 umol/L 9-30 Earline [place] Plasma umol/L [facility] L ab (Internal) : [address] 03/01/2017 CMP, Serum or S High g/r 158 mg/dL 74-106 Fin al [place] Plasma mg/dL [facility] L ab (Internal) : [address] t ? ? S High Bun 48 mg/dL 7-17 Final [place] mg/dL [facility] L ab (Internal) : [address] t ? ? S High Crea 1.30 0.52-1.04 Final [place] mg/dL mg/dL [facility] L ab (Internal) : [address] t ? ? S ? Ca 9.4 mg/dL 8.4-10.2 Final [place] mg/dL [facility] L ab (Internal) : [address] t ? ? S Low Na 133 137-145 Final [place] mmol/L mmol/L [facility] L ab (Internal) : [address] t ? ? S ? K 4.5 3.5-5.1 Final [place] mmol/L mmol/L [facility] L ab (Internal) : [address] t ? ? S Low Cl 97 mmol/L 98-107 Final [place] mmol/L [facility] L ab (Internal) : [address] t ? ? S Low Tco2 19.0 22.0-30.0 Final [place] mmol/L mmol/L [facility] L ab (Internal) : [address] t ? ? S ? Tp 7.4 g/dL 6.3-8.2 Final [place] g/dL [facility] L ab (Internal) : [address] t ? ? S ? Alb 3.6 g/dL 3.5-5.0 Final [place] g/dL [facility] L ab (Internal) : [address] t ? ? S ? Tbil 1.3 mg/dL 0.2-1.3 Final [place] mg/dL [facility] L ab (Internal) : [address] t ? ? S High Alp 127 U/L 38-126 Final [place] U/L [facility] L ab (Internal) : [address] t ? ? S ? Alt (Sgpt) 32 U/L 9-52 U/L Final [facility] L ab (Internal) : [address] t ? ? S High Ast (Sgot) 40 U/L 14-36 U/L Final No [facility]th [facility] L ab (Internal) : [address] t 03/01/2017 CBC W/ Auto BLD ? Wbc 9.4 5.0-10.0 Final [place] Diff 10*3/uL 10*3/uL [facility] L ab (Internal) : [address] ? ? BLD Low Rbc 3.84 4.10-5.30 Final [place] 10*6/uL 10*6/uL [facility] L ab (Internal) : [address] ? ? BLD ? Hgb 12.5 g/dL 12.0-16.0 Final Nort h g/dL [facility] L ab (Internal) : [address] ? ? BLD Low Hct 36.1 % 37.0-47.0 Final [facility] L ab (Internal) : [address] ? ? BLD ? Mcv 94.0 fL 80.0-96.0 Final [facility] L ab (Internal) : [address] ? ? BLD High Mch 32.6 pg 26.0-32.0 Final [facility] L ab (Internal) : [address] ? ? BLD ? Mchc 34.6 g/dL 31.0-35.0 Final Nort h g/dL [facility] L ab (Internal) : [address] t ? ? BLD High Rdw 15.5 % 11.5-14.5 Final [facility] L ab (Internal) : [address] ? ? BLD ? Plt 213 130-450 Final [place] 10*3/uL 10*3/uL [facility] L ab (Internal) : [address] t ? ? BLD ? Anc 6.74 ? Final [place] 10*3/uL [facility] L ab (Internal) : [address] ? ? BLD ? Neutro 71.9 % 40.0-75.0 Final [facility] L ab (Internal) : [address] t ? ? BLD Low Lymph 15.3 % 20.0-50.0 Final [facility] L ab (Internal) : [address] t ? ? BLD ? [place] 9.7 % 2.0-10.0 Final [facility] L ab (Internal) : [address] ? ? BLD ? Eos 1.7 % 1.0-6.0 % Final [facility] L ab (Internal) : [address] t ? ? BLD ? Baso 0.7 % 0.0-1.0 % Final [facility] L ab (Internal) : [address] t ? ? BLD ? Ig 0.7 % 0.0-0.9 % Final [facility] L ab (Internal) : [address] 03/01/2017 Prothrombin BLD High Pt 11.8 S 9.1-11.7 Final [facility] L ab (Internal) : [address] t ? ? BLD ? Inr 1.1 ? Final [facility] L ab (Internal) : [address] 02/27/2017 Venipuncture BLD ? Venpn* ? ? Final [facility] L ab (Internal) : [address] 02/27/2017 CMP, Serum or S High g/r 128 mg/dL 74-106 Fin al [place] Plasma mg/dL [facility] L ab (Internal) : [address] t ? ? S High Bun 40 mg/dL 7-17 Final [place] mg/dL [facility] L ab (Internal) : [address] t ? ? S High Crea 1.20 0.52-1.04 Final [place] mg/dL mg/dL [facility] L ab (Internal) : [address] t ? ? S ? Ca 9.5 mg/dL 8.4-10.2 Final [place] mg/dL [facility] L ab (Internal) : [address] t ? ? S Low Na 132 137-145 Final [place] mmol/L mmol/L [facility] L ab (Internal) : [address] t ? ? S ? K 3.5 3.5-5.1 Final [place] mmol/L mmol/L [facility] L ab (Internal) : [address] t ? ? S Low Cl 95 mmol/L 98-107 Final [place] mmol/L [facility] L ab (Internal) : [address] t ? ? S Low Tco2 20.0 22.0-30.0 Final [place] mmol/L mmol/L [facility] L ab (Internal) : [address] t ? ? S ? Tp 6.9 g/dL 6.3-8.2 Final [place] g/dL [facility] L ab (Internal) : [address] t ? ? S Low Alb 3.4 g/dL 3.5-5.0 Final [place] g/dL [facility] L ab (Internal) : [address] t ? ? S ? Tbil 1.1 mg/dL 0.2-1.3 Final [place] mg/dL [facility] L ab (Internal) : [address] t ? ? S ? Alp 124 U/L 38-126 Final [place] U/L [facility] L ab (Internal) : [address] t ? ? S ? Alt (Sgpt) 30 U/L 9-52 U/L Final Nor th [facility] L ab (Internal) : [address] t ? ? S ? Ast (Sgot) 31 U/L 14-36 U/L Final No rth [facility] L ab (Internal) : [address] 02/27/2017 HbA1C BLD ? Ha1C 5.3 % 4.0-6.0 % Final [facility] (Hemoglobin Count ry a1C), Blood Hospi anna Lab (Internal) : [address] 02/20/2017 T4, Free, Serum S ? Ft4 1.84 0.78-2.19 F [place]al [place] NG/dL NG/dL [facility] L ab (Internal) : [address] 02/20/2017 RBC Morphology, BLD ? Aniso occasiona ? F [place]al [place] Blood l [facility] L ab (Internal) : [address] 02/20/2017 CBC W/ Auto BLD ? Wbc 5.9 5.0-10.0 Final [place] Diff 10*3/uL 10*3/uL [facility] L ab (Internal) : [address] ? ? BLD Low Rbc 3.75 4.10-5.30 Final [place] 10*6/uL 10*6/uL [facility] L ab (Internal) : [address], [place] ? ? BLD ? Hgb 12.3 g/dL 12.0-16.0 Final Nort h g/dL [facility] L ab (Internal) : [address] ? ? BLD Low Hct 35.2 % 37.0-47.0 Final [facility] L ab (Internal) : [address] ? ? BLD ? Mcv 93.9 fL 80.0-96.0 Final [facility] L ab (Internal) : [address] ? ? BLD High Mch 32.8 pg 26.0-32.0 Final [facility] L ab (Internal) : [address] ? ? BLD ? Mchc 34.9 g/dL 31.0-35.0 Final Nort h g/dL [facility] L ab (Internal) : [address] ? ? BLD High Rdw 15.3 % 11.5-14.5 Final [facility] L ab (Internal) : [address] ? ? BLD ? Plt 137 130-450 Final [place] 10*3/uL 10*3/uL [facility] L ab (Internal) : [address] ? ? BLD ? Anc 4.00 ? Final [place] 10*3/uL [facility] L ab (Internal) : [address] t ? ? BLD ? Neutro 68.1 % 40.0-75.0 Final [facility] L ab (Internal) : [address] t ? ? BLD Low Lymph 17.4 % 20.0-50.0 Final [facility] L ab (Internal) : [address] ? ? BLD ? [place] 9.7 % 2.0-10.0 Final [facility] L ab (Internal) : [address] ? ? BLD ? Eos 2.4 % 1.0-6.0 % Final [facility] L ab (Internal) : [address] ? ? BLD High Baso 1.4 % 0.0-1.0 % Final [facility] L ab (Internal) : [address] ? ? BLD High Ig 1.0 % 0.0-0.9 % Final [facility] L ab (Internal) : [address] t 02/20/2017 CMP, Serum or S High g/r 165 mg/dL 74-106 Fin al [place] Plasma mg/dL [facility] L ab (Internal) : [address] ? ? S High Bun 42 mg/dL 7-17 Final [place] mg/dL [facility] L ab (Internal) : [address] ? ? S High Crea 1.20 0.52-1.04 Final [place] mg/dL mg/dL [facility] L ab (Internal) : [address] t ? ? S ? Ca 9.5 mg/dL 8.4-10.2 Final [place] mg/dL [facility] L ab (Internal) : [address] ? ? S Low Na 134 137-145 Final [place] mmol/L mmol/L [facility] L ab (Internal) : [address] t ? ? S ? K 4.4 3.5-5.1 Final [place] mmol/L mmol/L [facility] L ab (Internal) : [address] t ? ? S ? Cl 98 mmol/L 98-107 Final [place] mmol/L [facility] L ab (Internal) : [address] ? ? S ? Tco2 25.0 22.0-30.0 Final [place] mmol/L mmol/L [facility] L ab (Internal) : [address] ? ? S ? Tp 7.0 g/dL 6.3-8.2 Final [place] g/dL [facility] L ab (Internal) : [address] ? ? S ? Alb 3.5 g/dL 3.5-5.0 Final [place] g/dL [facility] L ab (Internal) : [address] ? ? S ? Tbil 1.2 mg/dL 0.2-1.3 Final [place] mg/dL [facility] L ab (Internal) : [address] ? ? S High Alp 140 U/L 38-126 Final [place] U/L [facility] L ab (Internal) : [address] ? ? S ? Alt (Sgpt) 29 U/L 9-52 U/L Final [facility] L ab (Internal) : [address] ? ? S High Ast (Sgot) 43 U/L 14-36 U/L Final No rth [facility] L ab (Internal) : [address] 02/20/2017 TSH, Serum or S Low Tsh 0.32 0.47-4.68 Fin al [place] Plasma u[IU]/mL u[IU]/mL [facility] L ab (Internal) : [address] 12/19/2016 Venipuncture BLD ? Venpn* ? ? Final [facility] L ab (Internal) : [address] 12/19/2016 Microalbumin, UR ? Malb <6.0 mg/L 5.0-16.7 F [place]al [place] Urine mg/L [facility] L ab (Internal) : [address] t ? ? UR Low U-crea, 19 mg/dL 30-125 Final [place] Spot mg/dL [facility] L ab (Internal) : [address] 12/19/2016 TSH, Serum or S Low Tsh <0.05 0.47-4.68 Fin al [place] Plasma u[IU]/mL u[IU]/mL [facility] L ab (Internal) : [address] 12/19/2016 CMP, Serum or S High g/r 119 mg/dL 74-106 Fin [facility] Plasma mg/dL [facility] L ab (Internal) : [address] t ? ? S High Bun 19 mg/dL 7-17 Final [place] mg/dL [facility] L ab (Internal) : [address] ? ? S ? Crea 0.60 0.52-1.04 Final [place] mg/dL mg/dL [facility] L ab (Internal) : [address] t ? ? S ? Ca 8.9 mg/dL 8.4-10.2 Final [place] mg/dL [facility] L ab (Internal) : [address] t ? ? S ? Na 138 137-145 Final [place] mmol/L mmol/L [facility] L ab (Internal) : [address] ? ? S ? K 4.2 3.5-5.1 Final [place] mmol/L mmol/L [facility] L ab (Internal) : [address] t ? ? S ? Cl 101 98-107 Final [place] mmol/L mmol/L [facility] L ab (Internal) : [address] t ? ? S ? Tco2 30.0 22.0-30.0 Final [place] mmol/L mmol/L [facility] L ab (Internal) : [address] t ? ? S ? Tp 6.6 g/dL 6.3-8.2 Final [place] g/dL [facility] L ab (Internal) : [address] ? ? S Low Alb 2.9 g/dL 3.5-5.0 Final [place] g/dL [facility] L ab (Internal) : [address] t ? ? S High Tbil 1.4 mg/dL 0.2-1.3 Final [place] mg/dL [facility] L ab (Internal) : [address] ? ? S High Alp 161 U/L 38-126 Final [place] U/L [facility] L ab (Internal) : [address] ? ? S ? Alt (Sgpt) 47 U/L 9-52 U/L Final Nor [facility] L ab (Internal) : [address] ? ? S High Ast (Sgot) 66 U/L 14-36 U/L Final No rth [facility] L ab (Internal) : [address] t 12/19/2016 HbA1C BLD ? Ha1C 5.4 % 4.0-6.0 % Final [facility] (Hemoglobin Count ry a1C), Blood Hospi anna Lab (Internal) : [address] 11/20/2016 Iron, Serum SERUM ? Iron 70 ug/dL 37-170 Final [place] ug/dL [facility] L ab (Internal) : [address] 11/20/2016 RBC Morphology, BLD ? Macro small ? Earline l [facility] L ab (Internal) : [address] 11/20/2016 CMP, Serum or S High g/r 124 mg/dL 74-106 Fin al [place] Plasma mg/dL [facility] L ab (Internal) : [address] ? ? S High Bun 21 mg/dL 7-17 Final [place] mg/dL [facility] L ab (Internal) : [address] t ? ? S ? Crea 0.60 0.52-1.04 Final [place] mg/dL mg/dL [facility] L ab (Internal) : [address] ? ? S ? Ca 8.5 mg/dL 8.4-10.2 Final [place] mg/dL [facility] L ab (Internal) : [address] ? ? S Low Na 134 137-145 Final [place] mmol/L mmol/L [facility] L ab (Internal) : [address] ? ? S ? K 4.3 3.5-5.1 Final [place] mmol/L mmol/L [facility] L ab (Internal) : [address] ? ? S ? Cl 99 mmol/L 98-107 Final [place] mmol/L [facility] L ab (Internal) : [address] ? ? S ? Tco2 25.0 22.0-30.0 Final [place] mmol/L mmol/L [facility] L ab (Internal) : [address] ? ? S ? Tp 6.3 g/dL 6.3-8.2 Final [facility] g/dL [facility] L ab (Internal) : [address] ? ? S Low Alb 2.7 g/dL 3.5-5.0 Final [facility] g/dL [facility] L ab (Internal) : [address] ? ? S ? Tbil 1.1 mg/dL 0.2-1.3 Final [facility] mg/dL [facility] L ab (Internal) : [address] ? ? S High Alp 158 U/L 38-126 Final [place] U/L [facility] L ab (Internal) : [address] ? ? S ? Alt (Sgpt) 45 U/L 9-52 U/L Final [facility] L ab (Internal) : [address] ? ? S High Ast (Sgot) 66 U/L 14-36 U/L Final No rth [facility] L ab (Internal) : [address] 11/20/2016 Ferritin, Serum S ? Ferr 60 NG/mL 11-264 Fi nal [place] or Plasma NG/mL [facility] L ab (Internal) : [address] Deshaunprosper olegario 11/20/2016 CBC W/ Auto BLD ? Wbc 6.6 5.0-10.0 Final [place] Diff 10*3/uL 10*3/uL [facility] L ab (Internal) : [address] t ? ? BLD Low Rbc 3.20 4.10-5.30 Final [place] 10*6/uL 10*6/uL [facility] L ab (Internal) : [address] ? ? BLD Low Hgb 10.7 g/dL 12.0-16.0 Final Nort h g/dL [facility] L ab (Internal) : [address] ? ? BLD Low Hct 32.4 % 37.0-47.0 Final [facility] L ab (Internal) : [address] olegario ? ? BLD High Mcv 101.3 fL 80.0-96.0 Final [facility] L ab (Internal) : [address] olegario ? ? BLD High Mch 33.4 pg 26.0-32.0 Final [facility] L ab (Internal) : [address] ? ? BLD ? Mchc 33.0 g/dL 31.0-35.0 Final Nort h g/dL [facility] L ab (Internal) : [address] t ? ? BLD ? Rdw 13.3 % 11.5-14.5 Final [facility] L ab (Internal) : [address] t ? ? BLD ? Plt 134 130-450 Final [place] 10*3/uL 10*3/uL [facility] L ab (Internal) : [address] ? ? BLD ? Anc 4.37 ? Final [place] 10*3/uL [facility] L ab (Internal) : [address] ? ? BLD ? Neutro 66.3 % 40.0-75.0 Final [facility] L ab (Internal) : [address] ? ? BLD Low Lymph 18.4 % 20.0-50.0 Final [facility] L ab (Internal) : [address] ? ? BLD ? [place] 9.4 % 2.0-10.0 Final [facility] L ab (Internal) : [address] ? ? BLD ? Eos 3.9 % 1.0-6.0 % Final [facility] L ab (Internal) : [address] ? ? BLD High Baso 1.1 % 0.0-1.0 % Final [facility] L ab (Internal) : [address] ? ? BLD ? Ig 0.9 % 0.0-0.9 % Final [facility] L ab (Internal) : [address] t 11/07/2016 C Diff Toxin STOOL ? C. Diff negative negative F inal [place] Genes, Qual, (Former[facility]) Coun try PCR, Stool Hospit al Lab (Internal) : [address] t 10/25/2016 Venipuncture BLD ? Venpn* ? ? Final [facility] L ab (Internal) : [address] t 10/25/2016 RBC Morphology, BLD ? Aniso small ? Earline l [place] Blood [facility] L ab (Internal) : [address] t ? ? BLD ? Poik small ? Final [place] [hpf] [facility] L ab (Internal) : [address] t 10/25/2016 CBC W/ Auto BLD Low Wbc 4.8 5.0-10.0 Final [place] Diff 10*3/uL 10*3/uL [facility] L ab (Internal) : [address] t ? ? BLD Low Rbc 2.43 4.10-5.30 [facility] 10*6/uL 10*6/uL [facility] L ab (Internal) : [address] t ? ? BLD Low Hgb 8.3 g/dL 12.0-16.0 Final [place] g/dL [facility] L ab (Internal) : [address] t ? ? BLD Low Hct 25.4 % 37.0-47.0 Final [facility] L ab (Internal) : [address] ? ? BLD High Mcv 104.5 fL 80.0-96.0 Final [facility] L ab (Internal) : [address] ? ? BLD High Mch 34.2 pg 26.0-32.0 Final [facility] L ab (Internal) : [address] ? ? BLD ? Mchc 32.7 g/dL 31.0-35.0 Final Nort h g/dL [facility] L ab (Internal) : [address] ? ? BLD High Rdw 14.6 % 11.5-14.5 Final [facility] L ab (Internal) : [address] ? ? BLD Low Plt 102 130-450 Final [place] 10*3/uL 10*3/uL [facility] L ab (Internal) : [address] ? ? BLD ? Anc 3.14 ? Final [place] 10*3/uL [facility] L ab (Internal) : [address] ? ? BLD ? Neutro 65.5 % 40.0-75.0 Final [facility] L ab (Internal) : [address] ? ? BLD Low Lymph 18.8 % 20.0-50.0 Final [facility] L ab (Internal) : [address] ? ? BLD ? [place] 9.6 % 2.0-10.0 Final [facility] L ab (Internal) : [address] ? ? BLD ? Eos 3.3 % 1.0-6.0 % Final [facility] L ab (Internal) : [address] ? ? BLD High Baso 1.5 % 0.0-1.0 % Final [facility] L ab (Internal) : [address] ? ? BLD High Ig 1.3 % 0.0-0.9 % Final [facility] L ab (Internal) : [address] 10/25/2016 CMP, Serum or S ? g/r 98 mg/dL 74-106 Earline l [place] Plasma mg/[facility] (Internal) : [address] ? ? S High Bun 20 mg/dL 7-17 Final [facility] mg/dL [facility] ([facility] : [address] ? ? S ? Crea 0.60 0.52-1.04 Final [facility] mg/dL mg/dL [facility] ([facility]) : [address] ? ? S ? Ca 8.5 mg/dL 8.4-10.2 Final [facility] mg/dL [facility] ([facility]) : [address] ? ? S Low Na 135 137-145 Final [place] mmol/L mmol/L [facility] ([facility]) : [address] ? ? S ? K 4.1 3.5-5.1 Final [place] mmol/L mmol/L [facility] (Internal) : [address] ? ? S ? Cl 100 98-107 Final [place] mmol/L mmol/L [facility] (Internal) : [address] ? ? S ? Tco2 26.0 22.0-30.0 Final [facility] mmol/L mmol/L [facility] (Internal) : [address] ? ? S Low Tp 6.1 g/dL 6.3-8.2 Final [facility] g/dL [facility] ([facility]) : [address] ? ? S Low Alb 3.1 g/dL 3.5-5.0 Final [facility] g/dL [facility] ([facility]) : [address] ? ? S High Tbil 1.9 mg/dL 0.2-1.3 Final [facility] mg/dL [facility] ([facility] : [address] ? ? S High Alp 161 U/L 38-126 Final [facility] U/L [facility] ([facility] : [address] ? ? S ? Alt (Sgpt) 50 U/L 9-52 U/L Final [facility] (Internal) : [address] ? ? S High Ast (Sgot) 74 U/L 14-36 U/L Final No rth [facility] L ab (Internal) : [address] t 10/03/2016 C Diff Toxin STL ABNOR C. Diff positive negative F inal [place] Genes, Qual, MAL (Formerly [facility]) Coun try PCR, Stool Hospit al Lab (Internal) : [address] t 10/03/2016 Urinalysis, UR ABNOR UA-color orange pale Final [facility] yellow [facility] L ab (Internal) : [address], [address] ? ? UR ABNOR UA-appear cloudy clear Final [facility] L ab (Internal) : [address] ? ? UR ABNOR UA-WBC 3-5 [hpf] 0-3 [hpf] Final [facility] L ab (Internal) : [address], [address] ? ? UR ? UA-RBC 0-2 [hpf] 0-2 [hpf] Final [facility] L ab (Internal) : [address] ? ? UR ABNOR UA-bacteri many none seen Final No rth [facility] a [hpf] [hpf] [facility] : [address] ? ? UR ABNOR UA-epithel few [hpf] none seen Final [facility] ial [hpf] [facility] (Internal) : [address] ? ? UR ABNOR UA-mucus few [hpf] none seen Final N orth [facility] [hpf] [facility] (Internal) : [address] ? ? UR ? Amorph moderate ? Final [place] [facility] [hpf] [facility] L ab (Internal) : [address] 10/03/2016 Fecal Occult STL ? Occ Bld 1 negative negative Final [place] Blood X 3, Countr y [facility] (Internal[facility] : [address] ? ? STL ? Occ Bld 2 negative negative [facility] [address] ? ? STL ? Occ Bld 3 negative negative [facility] [address] 10/02/2016 Venipuncture BLD ? Venpn* ? ? Final [facility] ab (Internal) : [address] [place] 10/02/2016 Neutrophil BLD ? Anc-manual 7.99 ? Earline nishant [place] Count, Absolute 10*3/uL [facility] (Anc), Blood Hosp ital Lab (Internal) : [address] [place] 10/02/2016 Differential, BLD High Polys 82 % 40-75 % Final [facility] Blood [facility] L ab (Internal) : [address] [place] ? ? BLD ? Bands 0 % 0-5 % Final [facility] L ab (Internal) : [address] [place] [address] ? ? BLD Low Lymphs 10 % 20-50 % Final [facility] L ab (Internal) : [address] [place] ? ? BLD ? [place] 7 % 2-10 % Final [facility] L ab (Internal) : [address] [place] ? ? BLD ? Eos 0 % 0-6 % Final [facility] L ab (Internal) : [address] [place] ? ? BLD ? Baso 0 % 0-1 % Final [facility] L ab (Internal) : [address] [place] ? ? BLD ? Atyp Lymph 0 % ? Final [facility] L ab (Internal) : [address] [place] ? ? BLD ? [place] 1 % ? Final [facility] ab (Internal) : [address] [place] ? ? BLD ? Plts, Est. adequate adequate Final N [facility] L ab (Internal) : [address] ? ? BLD ABNOR RBC abnormal normal Final [facility] L ab (Internal) : [address] [place] ? ? BLD ? [place] small ? Final [facility] L ab (Internal) : [address] [place] ? ? BLD ? Macro small ? Final [facility] L ab (Internal) : [address] [place] ? ? BLD ? Polychrom occasiona ? Final Nor [facility] L ab (Internal) : [address] 10/02/2016 CMP, Serum or S High g/r 152 mg/dL 74-106 Fin al [place] Plasma mg/dL [facility] ([facility] : [address] ? ? S High Bun 23 mg/dL 7-17 Final [place] mg/dL [facility] (Internal) : [address] ? ? S ? Crea 0.90 0.52-1.04 Final [place] mg/dL mg/dL [facility] (Internal) : [address] ? ? S ? Ca 8.4 mg/dL 8.4-10.2 Final [facility] mg/dL [facility] (Internal) : [address] ? ? S Low Na 129 137-145 Final [place] mmol/L mmol/L [facility] (Internal) : [address] ? ? S High K 5.2 3.5-5.1 Final [place] mmol/L mmol/L [facility] (Internal) : [address] ? ? S ? Cl 100 98-107 Final [place] mmol/L mmol/L [facility] (Internal) : [address] ? ? S Low Tco2 20.0 22.0-30.0 Final [place] mmol/L mmol/L [facility] (Internal) : [address] ? ? S Low Tp 6.2 g/dL 6.3-8.2 Final [facility] g/dL [facility] (Internal) : [address] ? ? S Low Alb 2.4 g/dL 3.5-5.0 Final [facility] g/dL [facility] (Internal) : [address] ? ? S High Tbil 2.1 mg/dL 0.2-1.3 Final [facility] mg/dL [facility] (Internal) : [address] ? ? S High Alp 207 U/L 38-126 Final [place] U/L [facility] (Internal) : [address] ? ? S ? Alt (Sgpt) 32 U/L 9-52 U/L Final Nor th [facility] (Internal) : [address] ? ? S High Ast (Sgot) 51 U/L 14-36 U/L Final No rth [facility] (Internal) : [address] 10/02/2016 CBC W/ Auto BLD ? Wbc 9.7 5.0-10.0 Final [place] Diff 10*3/uL 10*3/uL [facility] L ab (Internal) : [address] ? ? BLD Low Rbc 3.12 4.10-5.30 Final [place] 10*6/uL 10*6/uL [facility] L ab (Internal) : [address] ? ? BLD Low Hgb 10.8 g/dL 12.0-16.0 Final Nort h g/dL [facility] L ab (Internal) : [address] ? ? BLD Low Hct 31.5 % 37.0-47.0 Final [facility] L ab (Internal) : [address] ? ? BLD High Mcv 101.0 fL 80.0-96.0 Final [facility] L ab (Internal) : [address] ? ? BLD High Mch 34.6 pg 26.0-32.0 Final [facility] L ab (Internal) : [address] ? ? BLD ? Mchc 34.3 g/dL 31.0-35.0 Final Nort h g/dL [facility] L ab (Internal) : [address] ? ? BLD High Rdw 16.6 % 11.5-14.5 Final [facility] L ab (Internal) : [address] ? ? BLD ? Plt 139 130-450 Final [place] 10*3/uL 10*3/uL [facility] L ab (Internal) : [address] 09/26/2016 Urinalysis, UR ABNOR UA-color orange pale Final [facility] yellow [facility] L ab (Internal) : [address] ? ? UR ABNOR UA-appear hazy clear Final [facility] L ab (Internal) : [address] ? ? UR ABNOR UA-WBC 5-10 0-3 [hpf] Final [facility] [hpf] [facility] L ab (Internal) : [address], [place] ? ? UR ? UA-RBC 0-2 [hpf] 0-2 [hpf] Final [facility] ab (Internal) : [address] [place] ? ? UR ABNOR UA-bacteri many none seen Final No rth [facility] a [hpf] [hpf] [facility] (Internal) : [address] [place] ? ? UR ABNOR UA-epithel few [hpf] none seen Final [facility] MAL ial [hpf] [facility] (Internal) : [address] [place] ? ? UR ABNOR UA-mucus rare none seen Final Nort h MAL [hpf] [hpf] [facility] (Internal) : [address] [place] 09/19/2016 Culture, Urine UR ? Final microbiol ? Fi nal [facility] Lab (Internal) : [address] [place] 09/19/2016 sensitivities[I MISC ? Sens* ? ? Earline l [place] ] [facility] (Internal) : [address] [place] 09/19/2016 Urinalysis, UR ABNOR UA-color orange pale Final [facility] yellow [facility] (Internal) : [address] [place] ? ? UR ABNOR UA-appear hazy clear Final [facility] (Internal) : [address] [place] ? ? UR ABNOR UA-WBC 10-25 0-3 [hpf] Final North [facility] [hpf] [facility] (Internal) : [address] [place] ? ? UR ? UA-RBC 0-2 [hpf] 0-2 [hpf] Final [facility] ab (Internal) : [address] [place] ? ? UR ABNOR UA-bacteri moderate none seen Final North MAL a [hpf] [hpf] [facility] (Internal) : [address] ? ? UR ABNOR UA-epithel moderate none seen Final North MAL ial [hpf] [hpf] [facility] (Internal) : [address] [place] ? ? UR ? UA-mucus none seen none seen Final N orth [hpf] [hpf] [facility] (Internal) : [address] [place] ? ? UR ? Hyaline C moderate ? Final Nort h [hpf] [facility] (Internal) : [address], [place] 09/13/2016 Urinalysis, UR ABNOR UA-color orange pale Final [facility] L ab (Internal) : [address] [place] ? ? UR ABNOR UA-appear cloudy clear Final [facility] ab (Internal) : [address] [place] ? ? UR ? UA-spec 1.020 1.003-1.[address] ab (Internal) : [address] [place] ? ? UR ? UA-pH 5.0 [pH] 4.6-8.0 Final [place] [pH] [facility] (Internal) : [address] [place] ? ? UR ABNOR UA-leuk small negative Final [facility] ab (Internal) : [address] ? ? UR ABNOR UA-nitrite positive negative Final [facility] ab (Internal) : [address] [place] ? ? UR ABNOR UA-prot 1+ negative Final [facility] ab (Internal) : [address] [place] ? ? UR ? UA-gluc 1+ negative Final [facility] ab (Internal) : [address] [place] ? ? UR ABNOR UA-ketone trace negative [facility] : [address] ? ? UR ? UA-blood negative negative Final [facility] ab (Internal) : [address] ? ? UR ABNOR UA-WBC 10-25 0-3 [hpf] Final [facility] [hpf] [facility] (Internal) : [address] ? ? UR ABNOR UA-RBC 3-5 [hpf] 0-2 [hpf] Final [facility] ab (Internal) : [address] ? ? UR ABNOR UA-bacteri many none seen Final No rth [facility] a [hpf] [hpf] [facility] (Internal) : [address] ? ? UR ABNOR UA-epithel many none seen Final No rth MAL ial [hpf] [hpf] [facility] (Internal) : [address] [place] ? ? UR ? UA-mucus none seen none seen Final N orth [hpf] [hpf] [facility] (Internal) : [address] [place] 09/11/2016 Venipuncture BLD ? Venpn* ? ? Final [facility] ab (Internal) : [address] [place] 09/11/2016 Neutrophil BLD ? Anc-manual 10.22 ? Earline dillard [place] Count, Absolute 10*3/uL [facility] (Anc), Blood Hosp ital Lab (Internal) : [address] [place] 09/11/2016 Differential, BLD High Polys 84 % 40-75 % Final [facility] Blood [facility] L ab (Internal) : [address] [place] ? ? BLD ? Bands 2 % 0-5 % Final [facility] ab (Internal) : [address] ? ? BLD Low Lymphs 7 % 20-50 % Final [facility] ab (Internal) : [address] [place] [address] ? ? BLD ? [place] 4 % 2-10 % Final [facility] ab (Internal) : [address] [place] [address] ? ? BLD ? Eos 0 % 0-6 % Final [facility] ab (Internal) : [address] [place] ? ? BLD ? Baso 0 % 0-1 % Final [facility] ab (Internal) : [address] [place] ? ? BLD ? Atyp Lymph 0 % ? Final [facility] ab (Internal) : [address] [place] [address] ? ? BLD ? [place] 3 % ? Final [facility] ab (Internal) : [address] [place] ? ? BLD ? Plts, Est. adequate adequate Final [facility] ab (Internal) : [address] ? ? BLD ABNOR RBC abnormal normal Final [facility] L ab (Internal) : [address] [place] [address] ? ? BLD ? [place] moderate ? Final [facility] ab (Internal) : [address] [place] ? ? BLD ? Macro small ? Final [facility] ([facility] : [address] ? ? BLD ? [place] small ? Final North [hpf] [facility] L ab (Internal) : [address] 09/11/2016 CMP, Serum or S High g/r 150 mg/dL 74-106 Fin al [facility] Plasma mg/dL [facility] ([facility] : [address] ? ? S Low Bun 6 mg/dL 7-17 Final [place] mg/dL [facility] L ab (Internal) : [address] ? ? S ? Crea 0.70 0.52-1.04 Final [place] mg/dL mg/dL [facility] L ab (Internal) : [address] ? ? S ? Ca 8.5 mg/dL 8.4-10.2 Final [place] mg/dL [facility] L ab (Internal) : [address] ? ? S Low Na 131 137-145 Final [place] mmol/L mmol/L [facility] L ab (Internal) : [address] ? ? S ? K 4.6 3.5-5.1 Final [place] mmol/L mmol/L [facility] L ab (Internal) : [address] ? ? S Low Cl 96 mmol/L 98-107 Final [place] mmol/L [facility] L ab (Internal) : [address] ? ? S Low Tco2 20.0 22.0-30.0 Final [place] mmol/L mmol/L [facility] L ab (Internal) : [address] ? ? S ? Tp 6.4 g/dL 6.3-8.2 Final North g/dL [facility] L ab (Internal) : [address] ? ? S Low Alb 2.6 g/dL 3.5-5.0 Final [place] g/dL [facility] L ab (Internal) : [address] ? ? S High Tbil 1.4 mg/dL 0.2-1.3 Final North mg/dL [facility] L ab (Internal) : [address] ? ? S High Alp 215 U/L 38-126 Final [place] U/L [facility] L ab (Internal) : [address] ? ? S ? Alt (Sgpt) 27 U/L 9-52 U/L Final [facility] L ab (Internal) : [address] ? ? S High Ast (Sgot) 53 U/L 14-36 U/L Final No rth [facility] L ab (Internal) : [address] 09/11/2016 CBC W/ Auto BLD High Wbc 11.9 5.0-10.0 Final [place] Diff 10*3/uL 10*3/uL [facility] L ab (Internal) : [address] ? ? BLD Low Rbc 3.35 4.10-5.30 Final [place] 10*6/uL 10*6/uL [facility] L ab (Internal) : [address] ? ? BLD Low Hgb 11.3 g/dL 12.0-16.0 [facility] ab (Internal) : [address] ? ? BLD Low Hct 33.7 % 37.0-47.0 Final [facility] L ab (Internal) : [address] ? ? BLD High Mcv 100.6 fL 80.0-96.0 Final [facility] L ab (Internal) : [address] ? ? BLD High Mch 33.7 pg 26.0-32.0 Final [facility] L ab (Internal) : [address] ? ? BLD ? Mchc 33.5 g/dL 31.0-35.0 [facility] L ab (Internal) : [address] ? ? BLD High Rdw 18.5 % 11.5-14.5 Final [facility] L ab (Internal) : [address] ? ? BLD ? Plt 219 130-450 Final [place] 10*3/uL 10*3/uL [facility] L ab (Internal) : [address] 09/10/2016 Urinalysis, UR ? UA-color yellow pale Final [place] Complete yellow [facility] L ab (Internal) : [address], [place] ? ? UR ABNOR UA-appear hazy clear Final [facility] ab (Internal) : [address] [place] ? ? UR ? UA-spec >=1.030 1.003-1.0 Final Nort h Grav [address] [place] [address] ab (Internal) : [address] [place] ? ? UR ? UA-pH 5.0 [pH] 4.6-8.0 Final [place] [pH] [facility] (Internal) : [address] [place] ? ? UR ABNOR UA-leuk moderate negative Final Nort h [facility] ab (Internal) : [address] [place] ? ? UR ? UA-nitrite negative negative Final N orth [facility] (Internal) : [address] [place] ? ? UR ? UA-prot negative negative Final [facility] ab (Internal) : [address] [place] ? ? UR ? UA-gluc negative negative Final [facility] ab (Internal) : [address] [place] ? ? UR ? UA-ketone negative negative Final No rth [facility] (Internal) : [address] [place] ? ? UR ? UA-urobil normal normal Final [facility] ab (Internal) : [address] [place] ? ? UR ? UA-bili negative negative Final [facility] ab (Internal) : [address] [place] ? ? UR ABNOR UA-blood trace negative Final [facility] ab (Internal) : [address] [place] ? ? UR ABNOR UA-WBC 50-100 0-3 [hpf] Final [facility] [hpf] [facility] (Internal) : [address] [place] ? ? UR ? UA-RBC 0-2 [hpf] 0-2 [hpf] Final [facility] ab (Internal) : [address] [place] ? ? UR ABNOR UA-bacteri many none seen Final No rth MAL a [hpf] [hpf] [facility] (Internal) : [address] ? ? UR ? UA-epithel rare none seen Final No rth ial [hpf] [hpf] [facility] (Internal) : [address] ? ? UR ? UA-mucus none seen none seen Final N orth [hpf] [hpf] [facility] (Internal) : [address] ? ? UR ? Hyaline C rare ? Final [place] [hpf] [facility] (Internal) : [address] 09/10/2016 Culture, Urine UR ? Final microbiol ? Fi [facility] Lab (Internal) : [address] [facility] t 09/10/2016 sensitivities[I MISC ? Sens* ? ? Earline l [place] ] [facility] (Internal) : [address] [facility] t 08/28/2016 Cytology, TISS ? Report results ? Final N orth Non-gynecologic below C ountry al, Unspecified H ospital Lab Specimen (Interna l): [address] [facility] 08/28/2016 Protein, Total, ? Bf Prot <2.4 g/dL ? Final [place] Body Fluid [facility] ab (Internal[facility] [address] [facility] 08/28[facility]2016 Glucose, Body ? Bf Gluc 84 mg/dL ? Fi [facility] L ab (Internal) : [address] [facility] t 08/28/2016 Ldh (Lactate ? Bf LDH 180 U/L ? Final [place] Dehydrogenase), C ountry Body Fluid Hospit al Lab (Internal) : [address] [facility] t 08/28/2016 Cell Count, MISC ? Source, Bf peritonea ? Final [place] Body Fluid l fluid Count Hospital L ab (Internal) : [address] ? ? MISC ? Color, Bf yellow ? Final [facility] L ab (Internal) : [address] ? ? MISC ? Clarity clear ? Final [facility] ab (Internal) : [address] ? ? MISC ? WBC, Bf 0.13 ? Final [place] (Auto) 10*3/uL [facility] (Internal) : [address] ? ? MISC ? RBC, Bf <0.01 ? Final [place] (Auto) 10*6/uL [facility] (Internal) : [address] ? ? MISC ? Polys, Bf 9 % ? Final [facility] : [address] ? ? MISC ? Lymphs, 60 % ? Final [facility] B[facility](auto) [facility] (Internal[facility] : [address] ? ? MISC ? Monocyte, 31 % ? Final [facility] Bf (Auto) [facility] (Internal) : [address] ? ? MISC ? Eos, Bf 0 % ? Final [facility] (Auto[facility] (Internal[facility] : [address] ? ? MISC ? Baso, Bf 0 % ? Final [facility] (Auto[facility] (Internal[facility] : [address] 08/26/2016 RBC Morphology, BLD ? Aniso moderate ? Fi nal [place] Blood [facility] (Internal) : [address] 08/26/2016 CMP, Serum or S ? g/r 91 mg/dL 74-106 Earline l [place] Plasma mg/dL [facility] (Internal) : [address] ? ? S ? Bun 11 mg/dL 7-17 Final [facility] mg/dL [facility] (Internal[facility] : [address] ? ? S ? Crea 0.60 0.52-1.04 Final [facility] mg/dL mg/dL [facility] (Internal) : [address] ? ? S ? Ca 8.7 mg/dL 8.4-10.2 Final [facility] mg/dL [facility] ([facility] : [address] ? ? S Low Na 136 137-145 Final [facility] mmol/L mmol/L [facility] (Internal) : [address] ? ? S ? K 4.6 3.5-5.1 Final [facility] mmol/L mmol/L [facility] (Internal) : [address] ? ? S ? Cl 100 98-107 Final [facility] mmol/L mmol/L [facility] (Internal) : [address] ? ? S Low Tco2 21.0 22.0-30.0 Final [facility] mmol/L mmol/L [facility] (Internal) : [address] ? ? S ? Tp 6.9 g/dL 6.3-8.2 Final [place] g/dL [facility] ab (Internal) : [address] ? ? S Low Alb 2.8 g/dL 3.5-5.0 Final [place] g/dL [facility] ab (Internal) : [address] ? ? S High Tbil 3.1 mg/dL 0.2-1.3 Final [place] mg/dL [facility] ab (Internal) : [address] ? ? S High Alp 132 U/L 38-126 Final [place] U/L [facility] ab (Internal) : [address] ? ? S ? Alt (Sgpt) 41 U/L 9-52 U/L Final [facility] L ab (Internal) : [address] ? ? S High Ast (Sgot) 69 U/L 14-36 U/L Final No rth [facility] ab (Internal) : [address] 08/26/2016 CBC W/ Auto BLD ? Wbc 9.0 5.0-10.0 Final [place] Diff 10*3/uL 10*3/uL [facility] ab (Internal) : [address] ? ? BLD Low Rbc 3.93 4.10-5.30 Final [place] 10*6/uL 10*6/uL [facility] ab (Internal) : [address] ? ? BLD ? Hgb 12.8 g/dL 12.0-16.[address] [facility] h g/dL [facility] ab (Internal) : [address] ? ? BLD Low Hct 36.8 % 37.0-47.0 Final [place] % [facility] ab (Internal) : [address] ? ? BLD ? Mcv 93.6 fL 80.0-96.0 Final Kill [place] fL [facility] L ab (Internal) : [address] ? ? BLD High Mch 32.6 pg 26.0-32.0 Final Kill [place] pg [facility] L ab (Internal) : [address], [place] ? ? BLD ? Mchc 34.8 g/dL 31.0-35.0 Final Nort h g/dL [facility] L ab (Internal) : [address] t ? ? BLD High Rdw 18.2 % 11.5-14.5 Final [facility] L ab (Internal) : [address] ? ? BLD ? Plt 178 130-450 Final Kill [place] 10*3/uL 10*3/uL [facility] L ab (Internal) : [address] ? ? BLD ? Anc 5.85 ? Final Kill [place] 10*3/uL [facility] (Internal) : [address] ? ? BLD ? Neutro 64.8 % 40.0-75.0 Final [facility] L ab (Internal) : [address] ? ? BLD ? Lymph 21.3 % 20.0-50.0 Final [facility] L ab (Internal) : [address] ? ? BLD High [place] 11.5 % 2.0-10.0 Final [facility] L ab (Internal) : [address] ? ? BLD ? Eos 1.0 % 1.0-6.0 % Final [facility] ab (Internal) : [address] ? ? BLD ? Baso 0.8 % 0.0-1.0 % Final [facility] ab (Internal) : [address] ? ? BLD ? Ig 0.6 % 0.0-0.9 % Final [facility] ab (Internal) : [address] 08/26/2016 Urinalysis, UR ? UA-color yellow pale Final Kill [place] Dipstick, yellow [facility] (Internal) : [address] ? ? UR ? UA-appear clear clear Final [facility] (Internal) : [address] ? ? UR ? UA-spec 1.010 1.003-1.[address] L ab (Internal) : [address] ? ? UR ? UA-pH 5.5 [pH] 4.6-8.0 Final Kill [place] [pH] [facility] (Internal) : [address] , [place] ? ? UR ? UA-leuk negative negative Final Nort h [facility] ab (Internal) : [address] , [place] ? ? UR ? UA-nitrite negative negative Final N orth [facility] ab (Internal) : [address], [place] ? ? UR ? UA-prot negative negative Final [facility] [place] : [address] , [place] ? ? UR ? UA-gluc negative negative Final Nort [facility] ab (Internal) : [address] , [place] ? ? UR ? UA-ketone negative negative Final [facility] [place] : [address], [place] ? ? UR ? UA-urobil normal normal Final [facility] ab (Internal) : [address], [place] ? ? UR ? UA-bili negative negative Final [facility] ab (Internal) : [address], [place] ? ? UR ? UA-blood negative negative Final [facility] ab (Internal) : [address], [place] ? Venipuncture ? Location Left ? ? P _nc Primary Antecubit Care al [place]: [address], [place] ? ? ? Needle 23g ? ? P_nc Prim yolanda Butterfly Care [place]: [address], [place] ? ? ? Number of 1 ? ? P_nc P rimary Attempts Care [place]: [address], [place] ? ? ? Successful Yes ? ? P_nc Primary Care [place]: [address], [place] ? ? ? Dressing Pressure ? ? P_nc Primary Band-aid Care Applied [place]: [address], [place] ? ? ? Initials LMK ? ? P_nc Pr imary Care [place]: [address], [place] ? Electrocardiogr ? Rate & 59 jayro ? ? P_nc Primary am Rhythm 1stAVBloc Care k [place]: [address], [place] ? ? ? Qrs slightly ? ? P_nc Shayla akosua wide Care [place]: [address], [place] ? ? ? NH 226 ? ? P_nc Prima ry Interval Care [place]: [address], [place] ? ? ? QRS 120 ? ? P_nc Prima ry Duration Care [place]: [address], [place] ? ? ? QT 443 ? ? P_nc Prima ry Interval Care [place]: [address], [place] ? Hemoglobin ? Hgb 11.1 ? ? P_nc P rimary (Hb), Care Fingerstick, [place] Blood ns: [address], [place] ? Urinalysis, ? Color Dark ? ? P_nc Primary Dipstick, Yellow Care Reflex Micro [place] ns: [address], [place] ? ? ? Appearance Cloudy ? ? P_nc Primary Care [place]: [address], [place] ? ? ? Glucose Normal ? ? P_nc Shayla akosua Care [place]: [address], [place] ? ? ? Bilirubin Negative ? ? P_nc Primary Care [place]: [address], [place] ? ? ? Ketones Negative ? ? P_nc P rimary Care [place]: [address], [place] ? ? ? Specific 1.020 ? ? P_nc Pr imary [place] Care [place]: [address], [place] ? ? ? Blood Large ? ? P_nc Prima ry Care [place]: [address], [place] ? ? ? Ph 7.0 ? ? P_nc Prima ry Care [place]: [address], [place] ? ? ? Protein 2+ ? ? P_nc Shayla akosua Care [place]: [address], [place] ? ? ? Urobilinog 0.2 ? ? P_nc Primary en Care [place]: [address], [place] ? ? ? Nitrite negative ? ? P_nc P rimary Care [place]: [address], [place] ? ? ? Leukocyte Large ? ? P_nc P rimary Esterase Care [place]: [address], [place] ? Venipuncture ? Location Left ? ? P _nc Primary Antecubit Care al [place]: [address], [place] ? ? ? Needle 21g ? ? P_nc Prim yolanda Vacutaine Care r [place]: [address], [place] ? ? ? Number of 1 ? ? P_nc P rimary Attempts Care [place]: [address], [place] ? ? ? Successful Yes ? ? P_nc Primary Care [place]: [address], [place] ? ? ? Dressing Pressure ? ? P_nc Primary Band-aid Care Applied [place]: [address], [place] ? ? ? Initials LMK ? ? P_nc Pr imary Care [place]: [address], [place] Past Encounters 02/12/2021 Medication Monitoring; Type II Diabetes Mellitus Uncontrolled; Lumbosacral Radiculopathy; Hypothyroidism MUSTAPHA AaronC: [address] [place] [address], Ph. 01/15/2021 Type II Diabetes Mellitus Uncontrolled; Loose Stool; History of Total Knee Arthroplasty; Anemia Following Acute Postoperative Blood Loss; Nonalcoholic Steatohepatitis; Essential Hypertension; Urinary Tract Infectious Disease Gracia Teixeira MD: [address] [place] [address], Ph. 01/01/2021 Hyponatremia; Thrombocytopenic Disorder Annie Green MD: [address] [facility] [place] [address], Ph. 11/24/2020 Type II Diabetes Mellitus Uncontrolled; Loose Stool; History of Total Knee Arthroplasty; Anemia Following Acute Postoperative Blood Loss; Nonalcoholic Steatohepatitis; Essential Hypertension Gracia Teixeira MD: [address] [place] [phone], Ph. 09/25/2020 Cirrhosis - Non-alcoholic; Congestive He art Failure; Type II Diabetes Mellitus Uncontrolled; Hypothyroidism; Iron Deficiency Anemia MUSTAPHA AaronC: [address] [place] [address], Ph. 07/04/2020 Annie Green MD: [address] [place] [address], Ph. 07/03/2020 Hypothyroidism; Congestive Heart Failure ; Type II Diabetes Mellitus Uncontrolled; Cirrhosis - Non-alcoholic MUSTAPHA AaronC: [address] [place] [address], Ph. 05/31/2020 Hypokalemia; Diastolic Dysfunction; Aort ic Valve Stenosis; Hyperlipidemia Annie Green MD: [address] [place] [address], Ph. 04/13/2020 MUSTAPHA AcostaC: [address] [place] [address] Kecia ritchie, [facility] [address] [address], Ph. 04/03/2020 Osteoarthritis of Knee; Type II Diabetes Mellitus Uncontrolled; Administration of Influenza Vaccine; Disorder of Nervous System Due to Type 2 Diabetes Mellitus; Iron Deficiency Anemia; Hypothyroidism Junito Holliday PA-C: [address] [place] [address], Ph. 02/21/2020 Anemia; Osteoarthritis of Knee; Pruritus of Skin; Hypothyroidism; Left Sided Cerebral Hemisphere Cerebrovascular Accident; Disorder of Nervous System Due to Type 2 Diabetes Mellitus; Cirrhosis - Non-alcoholic; Esophageal Varices without Bleeding Junito Holliday PA-C: [address] [place] [address], Ph. 01/24/2020 Congestive Heart Failure; Hypothyroidism ; Type II Diabetes Mellitus Uncontrolled; Iron Deficiency Anemia; Osteoarthritis of Knee Junito Holliday PA-C: [address] [place] [address], Ph. 01/12/2020 Osteoarthritis of Knee; Muscle Weakness; Poor Balance; Unsteady Gait; Stiffness of Right Knee Nedra Alexandra, PT: [address] [facility] [address] [place], [facility] [address], [place] [address], Ph. 01/05/2020 Osteoarthritis of Knee; Muscle Weakness; Poor Balance; Unsteady Gait; Stiffness of Right Knee Nedra Alexandra, PT: [address] [place] [address] Dr [place], [address] [address], Ph. 12/31/2019 Diego Larson MD: [address] [place] [address] [address], [place] [address], Ph. 12/30/2019 Osteoarthritis of Knee; Muscle Weakness; Poor Balance; Unsteady Gait; Stiffness of Right Knee Nedra Alexandra, PT: [address] [place] [address] Dr [place], [address] [address], Ph. 12/22/2019 Osteoarthritis of Knee; Muscle Weakness; Poor Balance; Unsteady Gait; Stiffness of Right Knee Nedra Alexandra, PT: [address] [place] [address] Dr [place], [address] [address], Ph. 12/15/2019 Osteoarthritis of Knee; Muscle Weakness; Poor Balance; Unsteady Gait; Stiffness of Right Knee Nedra Alexandra, PT: [address] [place] [address] Dr [place], [address] [address], Ph. 12/08/2019 Osteoarthritis of Knee; Muscle Weakness; Poor Balance; Unsteady Gait; Stiffness of Right Knee Nedra Alexandra, PT: [address] [place] [address] Dr [place], [address] [address], Ph. 12/06/2019 Osteoarthritis of Knee; Cirrhosis - Non- alcoholic; Congestive Heart Failure; Acute Nontraumatic Kidney Injury Junito Holliday PA-C: [address] [place] [phone], Ph. 12/01/2019 Osteoarthritis of Knee; Muscle Weakness; Poor Balance; Unsteady Gait; Stiffness of Right Knee Nedra Alexandra, PT: [address] [place] [address] Dr [place], [address] [address], Ph. 11/25/2019 Osteoarthritis of Knee; Muscle Weakness; Poor Balance; Unsteady Gait; Stiffness of Right Knee Nedra Alexandra, PT: [address] [facility] [address], [address], [place] [address], Ph. 11/16/2019 Osteoarthritis of Knee; Muscle Weakness; Poor Balance; Unsteady Gait; Stiffness of Right Knee Nedra Alexandra, PT: [address] [facility] [address] [place], [address], [place] [address], Ph. 10/25/2019 Sciatica; Pain in Right Knee; Hypothyroi dism; Acute Nontraumatic Kidney Injury Junito Holliday PA-C: [address] [place] [address], Ph. 09/28/2019 Macrocytosis; Acute Nontraumatic Kidney Injury; Iron Deficiency Anemia; Osteoarthritis of Knee Junito Holliday PA-C: [address] [place] [phone], Ph. Social History Tobacco Smoking Status Never Smoker Vaccine List Vaccine Type COVID-19, mRNA, LNP-S, PF, 30 mcg/0.3 mL dose 09/18/2020 10/09/2020 influenza, high dose seasonal 03/24/2017?0.5 mL influenza, high-dose, quadrivalent 04/03/2020?0.7 mL influenza, seasonal, injectable 03/27/2009 04/27/2010?0.5 mL 03/27/2011 04/19/2015 influenza, seasonal, injectable, preserv ative free 05/25/2009?0.5 mL 04/10/2012?0.5 mL 03/31/2013?0.5 mL 04/15/2014?0.5 mL influenza, trivalent, adjuvanted 04/05/2019?0.5 mL novel [id number], all formulation s 08/01/2009 pneumococcal conjugate PCV 13 06/01/2018?0.5 mL pneumococcal polysaccharide [id number] 09/06/2009 Tdap 09/06/2009 Plan of Care Reminders Provider Appointments None ? ? recorded. Lab None ? ? recorded. Referral None ? ? recorded. Procedures None ? ? recorded. Surgeries None ? ? recorded. Imaging None ? ? recorded. Vitals 02/12/2021 03:40PM Follow Up 20 Height Weight BMI Blood Pressure 158.12 cm 93.67 kg 37.5 kg/m2 118/58 mm[Hg] 01/15/2021 11:52AM Longterm 40 Height Weight BMI Blood Pressure 158.12 cm 95.4 kg 38.2 kg/m2 122/62 mm[Hg] 01/01/2021 03:00PM Follow Up 30 Height Weight BMI Blood Pressure 158.12 cm 217 kg 86.8 kg/m2 131/68 mm[Hg] 11/24/2020 08:25AM Telehealth 20 Height Weight BMI Blood Pressure 158.12 cm 84.37 kg 33.7 kg/m2 138/60 mm[Hg] 09/25/2020 02:00PM Follow Up 40 Height Weight BMI Blood Pressure 158.12 cm 97.52 kg 39 kg/m2 120/80 mm[Hg] 07/03/2020 01:40PM Follow Up 40 Height Weight Blood Pressure 158.12 cm 120/72 mm[Hg] 05/31/2020 11:15AM Consult 45 Height Weight BMI Blood Pressure 158.12 cm 92.8 kg 37.1 kg/m2 122/74 mm[Hg] 04/13/2020 01:15PM Follow Up 30 Height Weight 158.12 cm 04/03/2020 01:40PM Follow Up 40 Height Blood Pressure 158.12 cm 122/66 mm[Hg] 02/21/2020 01:40PM Follow Up 40 Height Weight BMI Blood Pressure 158.12 cm 93.44 kg 37.4 kg/m2 120/74 mm[Hg] 01/24/2020 03:40PM Follow Up 40 Height Weight BMI Blood Pressure 158.12 cm 92.53 kg 37 kg/m2 110/70 mm[Hg] 12/31/2019 08:00AM Office 15 Height Blood Pressure 158.12 cm 144/84 mm[Hg] 12/06/2019 03:00PM Follow Up 20 Height Weight BMI Blood Pressure 158.12 cm 93.89 kg 37.6 kg/m2 120/80 mm[Hg] 10/25/2019 01:20PM Acute 20 Height 158.12 cm 09/28/2019 02:40PM Follow Up 40 Height 158.12 cm 08/31/2019 02:40PM Follow Up 40 Height Weight BMI Blood Pressure 158.12 cm 90.26 kg 36.1 kg/m2 120/80 mm[Hg] 08/17/2019 02:40PM Follow Up 40 Height Weight BMI Blood Pressure 158.12 cm 90.72 kg 36.3 kg/m2 140/90 mm[Hg] 07/27/2019 03:40PM Follow Up 40 Height Weight BMI Blood Pressure 158.12 cm 87.54 kg 35 kg/m2 110/70 mm[Hg] 07/20/2019 02:00PM Follow Up 40 Height Weight BMI Blood Pressure 158.12 cm 85.28 kg 34.1 kg/m2 130/80 mm[Hg] 06/28/2019 02:20PM Follow Up 40 Height Weight BMI Blood Pressure 158.12 cm 90.72 kg 36.3 kg/m2 (1) 120/80 mm[H g] (2) 120/80 mm[Hg ] 06/23/2019 02:00PM Follow Up 20 Height Weight BMI Blood Pressure 158.12 cm 86.18 kg 34.5 kg/m2 120/80 mm[Hg] 05/12/2019 01:00PM Acute 20 Height Weight BMI Blood Pressure 158.12 cm 85.28 kg 34.1 kg/m2 120/80 mm[Hg] 04/26/2019 01:20PM Follow Up 20 Height Weight BMI Blood Pressure 158.12 cm 88 kg 35.2 kg/m2 126/70 mm[Hg] 04/22/2019 01:00PM Acute 20 Height Weight BMI Blood Pressure 158.12 cm 87.09 kg 34.8 kg/m2 120/80 mm[Hg] 04/07/2019 02:15PM Injection 15 Height Weight 158.12 cm 04/05/2019 12:40PM Follow Up 20 Height Weight BMI Blood Pressure 158.12 cm 88.9 kg 35.6 kg/m2 140/90 mm[Hg] 03/24/2019 02:15PM Injection 15 Height Weight 158.12 cm 03/15/2019 02:20PM Follow Up 20 Height Weight BMI Blood Pressure 158.12 cm 91.63 kg 36.6 kg/m2 140/90 mm[Hg] 02/09/2019 02:40PM Follow Up 20 Height Weight BMI Blood Pressure 158.12 cm 83.91 kg 33.6 kg/m2 130/80 mm[Hg] 02/04/2019 05:00PM Longterm 20 Height Weight BMI Blood Pressure 158.12 cm 84.82 kg 33.9 kg/m2 112/62 mm[Hg] 01/29/2019 04:40PM Longterm 20 Height Weight BMI Blood Pressure 158.12 cm 85.73 kg 34.3 kg/m2 109/76 mm[Hg] 11/17/2018 01:40PM Follow Up 40 Height Weight BMI Blood Pressure 158.12 cm 80.29 kg 32.1 kg/m2 130/80 mm[Hg] 08/25/2018 01:20PM Follow Up 40 Height Weight BMI Blood Pressure 158.12 cm 79.83 kg 31.9 kg/m2 120/80 mm[Hg] 06/11/2018 01:20PM Follow Up 20 Height Weight BMI Blood Pressure 158.12 cm 77.11 kg 30.8 kg/m2 128/78 mm[Hg] 06/01/2018 02:00PM Follow Up 20 Height Weight BMI Blood Pressure 158.12 cm 76.66 kg 30.7 kg/m2 120/80 mm[Hg] 03/10/2018 02:20PM Injection 20 Height Weight BMI Blood Pressure 158.12 cm 75.3 kg 30.1 kg/m2 130/80 mm[Hg] 03/05/2018 01:30PM Follow Up 30 Height Weight BMI Blood Pressure 158.12 cm 76.61 kg 30.6 kg/m2 138/72 mm[Hg] 02/02/2018 02:30PM Follow Up 30 Height Blood Pressure 158.12 cm 132/68 mm[Hg] 11/27/2017 10:30AM Follow Up 30 Height Weight BMI Blood Pressure 158.12 cm 75.3 kg 30.1 kg/m2 120/80 mm[Hg] 11/26/2017 01:00PM Injection 30 Height Weight BMI Blood Pressure 158.12 cm 75.57 kg 30.2 kg/m2 138/62 mm[Hg] 11/19/2017 01:00PM Injection 30 Height Weight BMI Blood Pressure 158.12 cm 74.8 kg 29.9 kg/m2 138/64 mm[Hg] 09/23/2017 Height Weight Blood Pressure 158.12 cm 70.76 kg 120/80 mm[Hg] 08/26/2017 Height Weight Blood Pressure 158.12 cm 71.21 kg 130/70 mm[Hg] 07/16/2017 Height Weight Blood Pressure 158.12 cm 68.49 kg 110/80 mm[Hg] 06/16/2017 Height Weight Blood Pressure 158.12 cm 65.41 kg 110/60 mm[Hg] 05/20/2017 Weight Blood Pressure 76.2 kg 108/60 mm[Hg] 04/22/2017 Height Weight Blood Pressure 158.12 cm 69.4 kg 120/80 mm[Hg] 04/09/2017 Height Weight Blood Pressure 158.12 cm 79.38 kg 110/70 mm[Hg] 03/24/2017 Height Weight Blood Pressure 158.12 cm 77.11 kg 110/70 mm[Hg] 03/17/2017 Height Weight Blood Pressure 158.12 cm 65.77 kg 98/70 mm[Hg] 03/06/2017 Height Weight Blood Pressure 158.12 cm 64.41 kg 90/70 mm[Hg] 02/20/2017 Weight Blood Pressure 72.21 kg 118/70 mm[Hg] 12/18/2016 Height Weight Blood Pressure 158.12 cm 69.85 kg 130/70 mm[Hg] 11/20/2016 Height Weight Blood Pressure 158.12 cm 78.02 kg 130/80 mm[Hg] 10/31/2016 Height Weight Blood Pressure 158.12 cm 76.2 kg 130/80 mm[Hg] 10/07/2016 Height Weight Blood Pressure 158.12 cm 79.38 kg 140/80 mm[Hg] 09/11/2016 Height Weight Blood Pressure 158.12 cm 79.83 kg 120/70 mm[Hg] 08/26/2016 Height Weight Blood Pressure 158.12 cm 86.64 kg 130/80 mm[Hg] 07/24/2016 Height Weight Blood Pressure 158.12 cm 80.29 kg 110/70 mm[Hg] 06/26/2016 Height Weight Blood Pressure 158.12 cm 86.18 kg 130/80 mm[Hg] 05/28/2016 Height Weight Blood Pressure 158.12 cm 82.33 kg 110/70 mm[Hg] 05/22/2016 Height Weight Blood Pressure 158.12 cm 83.23 kg 120/85 mm[Hg] 05/06/2016 Height Weight Blood Pressure 158.12 cm 86.64 kg 110/70 mm[Hg] 05/02/2016 Height Weight Blood Pressure 158.12 cm 89.36 kg 110/60 mm[Hg] 04/17/2016 Height Weight Blood Pressure 158.12 cm 79.38 kg 120/60 mm[Hg] 03/19/2016 Height Weight Blood Pressure 158.12 cm 80.29 kg 160/90 mm[Hg] 02/12/2016 Weight Blood Pressure 81.87 kg 126/68 mm[Hg] 01/31/2016 Height Weight Blood Pressure 158.12 cm 83.23 kg 136/78 mm[Hg] 01/17/2016 Height Weight Blood Pressure 158.12 cm 83.23 kg 140/78 mm[Hg] 01/02/2016 Height Weight Blood Pressure 158.12 cm 83.23 kg 150/90 mm[Hg] 11/29/2015 Height Weight Blood Pressure 158.12 cm 82.55 kg 132/78 mm[Hg] 11/21/2015 Height Weight Blood Pressure 158.12 cm 82.55 kg 140/70 mm[Hg] 07/19/2015 Weight Blood Pressure 81.19 kg 140/70 mm[Hg] 04/19/2015 Height Weight Blood Pressure 158.12 cm 79.83 kg 138/82 mm[Hg] 12/07/2014 Weight Blood Pressure 82.33 kg 128/72 mm[Hg] 10/07/2014 Height Weight Blood Pressure 158.12 cm 82.19 kg 126/58 mm[Hg] 06/07/2014 Height Weight Blood Pressure 158.12 cm 82.1 kg 140/60 mm[Hg] 05/31/2014 Blood Pressure 130/82 mm[Hg] 04/28/2014 Blood Pressure 130/82 mm[Hg] 04/12/2014 Blood Pressure 130/70 mm[Hg] 04/05/2014 Height Weight Blood Pressure 158.12 cm 80.74 kg 132/74 mm[Hg] 10/01/2013 Height Weight Blood Pressure 158.12 cm 81.65 kg 110/80 mm[Hg] 09/03/2013 Blood Pressure 140/72 mm[Hg] 08/10/2013 Height Weight Blood Pressure 158.12 cm 83.91 kg 114/58 mm[Hg] 07/01/2013 Height Weight Blood Pressure 158.12 cm 84.37 kg 134/68 mm[Hg] 03/19/2013 Weight Blood Pressure 85.28 kg 124/70 mm[Hg] 12/18/2012 Height Weight Blood Pressure 157.48 cm 87.09 kg 118/66 mm[Hg] 10/16/2012 Height Weight Blood Pressure 157.48 cm 89.36 kg 132/74 mm[Hg] 08/05/2012 Weight Blood Pressure 88.9 kg 138/76 mm[Hg] 06/19/2012 Height Weight Blood Pressure 157.48 cm 90.72 kg 140/78 mm[Hg] 06/08/2012 Height Weight 157.48 cm 92.53 kg 06/04/2012 Height Weight Blood Pressure 157.48 cm 92.53 kg 144/76 mm[Hg] 05/22/2012 Height Weight Blood Pressure 157.48 cm 92.08 kg 120/84 mm[Hg] 05/11/2012 Height Weight 157.48 cm 89.81 kg 04/10/2012 Height Weight Blood Pressure 157.48 cm 89.81 kg 122/76 mm[Hg] 03/17/2012 Height Weight Blood Pressure 157.48 cm 87.54 kg 134/80 mm[Hg] 03/10/2012 Weight Blood Pressure 87.54 kg 128/78 mm[Hg] 03/03/2012 Weight Blood Pressure 87.54 kg 128/74 mm[Hg] 01/09/2012 Weight Blood Pressure 87.54 kg 122/74 mm[Hg] 01/02/2012 Height Weight Blood Pressure 157.48 cm 88.45 kg 122/80 mm[Hg] 10/09/2011 Weight Blood Pressure 90.26 kg 128/72 mm[Hg] 09/18/2011 Height Weight Blood Pressure 157.48 cm 90.72 kg 152/82 mm[Hg] 08/22/2011 Weight Blood Pressure 92.08 kg 130/84 mm[Hg] 04/08/2011 Blood Pressure 130/82 mm[Hg] 04/03/2011 Weight 88.45 kg 03/25/2011 Height Weight Blood Pressure 157.48 cm 90.26 kg 140/70 mm[Hg] 02/19/2011 Height Weight Blood Pressure 157.48 cm 90.26 kg 132/72 mm[Hg] 01/18/2011 Weight Blood Pressure 92.53 kg 136/70 mm[Hg] 10/24/2010 Blood Pressure 128/72 mm[Hg] 09/05/2010 Weight Blood Pressure 88.9 kg 130/68 mm[Hg] 08/07/2010 Weight Blood Pressure 88.9 kg 126/70 mm[Hg] 07/24/2010 Weight Blood Pressure 88 kg 120/74 mm[Hg] 04/05/2010 Weight Blood Pressure 88 kg 114/70 mm[Hg] 03/28/2010 Blood Pressure 144/80 mm[Hg] 02/22/2010 Weight Blood Pressure 88.9 kg 152/78 mm[Hg] 02/02/2010 Height Weight Blood Pressure 157.48 cm 88.68 kg 108/80 mm[Hg] 01/01/2010 Height Weight Blood Pressure 157.48 cm 90.72 kg 124/72 mm[Hg] 10/10/2009 Height Weight Blood Pressure 157.48 cm 91.17 kg 118/78 mm[Hg] 08/24/2009 Weight Blood Pressure 92.99 kg 140/74 mm[Hg] 05/25/2009 Weight Blood Pressure 95.25 kg 147/78 mm[Hg] 02/16/2009 Blood Pressure 150/88 mm[Hg] 01/19/2009 Weight Blood Pressure 92.76 kg 161/83 mm[Hg] 12/26/2008 Height Weight Blood Pressure 157.48 cm 92.99 kg 144/76 mm[Hg] 09/23/2008 Blood Pressure 126/72 mm[Hg] 09/07/2008 Height Weight Blood Pressure 157.48 cm 92.53 kg 168/80 mm[Hg] 08/25/2008 Height Weight Blood Pressure 157.48 cm 91.63 kg 126/78 mm[Hg] 03/30/2007 Height Weight 159.38 cm 96.62 kg
--- OUTSIDE RECORDS SUMMARY | 2021-03-27 00:47 | XMS_ITS | Encounter Summary ---
:1935 Author Care Team Providers Name Role Phone Karla Holliday Primary Care Provider [phone] Kee Pal MD International Logistics Analyst [phone] Cristy Alfaro, rolling mill operator Unavailable Shaun Angelo MD General Surgeon [phone] Fransico Larson MD General Surgeon [phone] Reason for Visit bradycardia; - Aortic Stenosis; S/P - ED Visit; Follow up 6 month; s/p inpatient; CHF - Congestive Heart Failure Assessment and Plan Assessment Note Date: January 01, 2021 Referring: Re: Lucretia Mayen 84-year-old woman Problems: 1. Cirrhosis. MORALES described in chart. 2. Congestive heart failure. Details unclear. May have HfPEF. 3. Esophageal varices/GI hemorrhage. Patient is Cheondoism. 4. CVA. January 2019. Left thalamic stroke describe d. No atrial fibrillation identified on EKG or telemetry for 24 hours during admission. 5. Thrombocytopenia. ITP. Followed by hematology. Patient is Cheondoism. 6. Hyperkalemia. Patient describes being admitted February 2020 for hyperkalemia with potassium 6.6. Currently maintained on spironolactone. HPI: January 01, 2021. Patient underwent ri ght TKR November 16, 2020. Postoperative course complicated by anemia. [facility]charged to jail. ER evaluation December 25, 2020. Patient had been able to return home from rehab. Patient quite weak. cannot care for her. Patient admitted December 252020. 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 Responded to lactulose. Today January 01, 2021, has returned to [facility], [place]. Patient is sedentary. She denies chest pain. Denies shortness of breath. Denies PND orthopnea. Sleeps on one pillow. She does snore. Never had a sleep evaluation. Mild peripheral edema. She does wear compression hose for thi s occasionally. No palpitations presynco pe or syncope. No bleeding problems. No hematochezia melena hematuria. DATA: Cardiac risk factors: Positive diabetes. Positive hypertension. Negative cholesterol. Negative family history. Negative tobacco. Social history: Activity profile as abov e. Past medical history: Ascites. Nontrauma tic kidney injury. Cervical radiculopathy. Nonalcoholic cirrhosis. Dysautonomia. Dupuytren's. Hemorrhoids. High lipase. Hypothyroidism. Hypokalemia. Osteoarthriti s. Iron deficiency anemia. Lumbosacral r adiculopathy. Mixed urinary incontinence. Nausea. Prolapse. Review of systems: A 10-point review of systems was obtained. Pertinent positives as described in HPI, all others negative. Allergies: NKDA Contrast allergies: Echo: June 14, 2020. LVEF 60 to 65%. Normal size. Mild concentric LVH. Sinus. Right ventricle mildly dilated, normal function. Left atrium normal, 27. Right atrium normal. Aortic valve trileaflet. Mi ld aortic stenosis: Aortic valve area 1. 3 cm?. Peak velocity 2.5 m/s mean gradient 11 mmHg. DOI 0.41. Trivial MR. Trivial TR. Pulmonary pressure 15-25 mmHg. Trivial PI. Normal pericardium. Aortic r oot normal 3.0. Ascending normal 3.3. Ar ch normal 2.3. No coarct. No PDA. IVC normal. E primed 4, 7 (7, 10). E/E prime 19.1, 11.8 (15, 12). Average greater than 14. TR max 1.96 m/s. Diastolic indices technically indeterminant. January 12, 2019. LVEF 65%. Normal size. Rig ht ventricle mildly dilated, normal function. Left atrium normal. Right atrium normal. Aortic valve trileaflet. Mild aortic stenosis. Valve area 1.3 cm?. Pea k velocity 2.8 m/s. Mean gradient 14.8 m mHg. DOI 0.46. Trivial MR. 1+ TR. No PDA. IVC normal. Trivial PFO seen April 2016 not visualized. Sinus. E primed 5, 10 (7, 10). E/E primed 20,11 (15, 12). E/E prime average greater than 14. Pulmonary pressure 30-35 mmHg plus right atrial pressure (30-40 mmHg total). TR max 2.8 meters per second. Diastolic indices technically indeterminate. May 02, 2016. LVEF 65%. Normal size. Right ventricle normal. Left atrium normal. Right atrium normal. Aortic valve trileaflet. Mild aortic stenosis. Valve area 1.8 cm?. Peak velocity 2.3 m/s. M hailey gradient 10.5 mmHg. DOI 0.6. Trivial MR. 1+ TR. Palm 1?2+ PI. Normal pericardium. Right pleural effusion. Aortic root 2.8. Ascending aorta 3.0. Arch not visualized. IVC mildly dilated with re spirophasic change right atrial pressure has been 5-10 mmHg. Sinus. E prime 3, 3 (7, 10). E/E prime 18.9, 18.6 (15, 12). Pulmonary pressure 30-35 mmHg plus right atrial pressure (35-45 mmHg total). TR m ax 2.8 m/s diastolic indices likely abno rmal, suggesting elevated left-sided filling pressures. Cardiac MRI: Stress: June 27, 2020. Adenosine brennan dy. Normal perfusion. LVEF 70%. Global and regional wall motion. Negative ischemia. [facility]: Holter: Event monitor: EKG: December 25, 2020. Sinus rhythm 63 bpm. Left axis deviation. LVH. QRS 114 ms. QT/QTc 451/462 ms. July 03, 2020. Sinus rhythm 59 bpm. Diminutive P waves. LVH. Nonspecific interventricular conduction delay. QRS 120 ms. Q waves V1 V2. QT/QTc 444/443 ms. May 31, 2020. Sinus rhythm 60 bpm. Nonspecific interventricular conduction delay. Left axis deviation/left anterior hemiblock/LVH. Q waves V1 V2. No acute change. QT/QTc 450 ms. QRS 120 ms. July 20, 2019. Sinus rhythm 63 bpm. L eft bundle branch. QRS 130 ms. Q wave V1?V3. QT/QTc 434/445 ms. January 11, 2019. Sinus rhythm 66 bpm. QRS 1 22 ms. Left bundle branch block. QT/QTc 412/432 ms. March 11, 2017. Sinus rhythm 93 bpm. Left bundle branch block. QRS 134 ms. QT/QTc 388/483 ms. July 19, 2015. Sinus rhythm 75 bpm. N ormal axis. LVH. QRS 100 ms. QT/QTc 408/456 ms Radiology: March 10, 2019. Chest x-ra y. No acute finding. Pulmonary function test: Labs: December 28, 2020. AST/ALT normal. BUN /creatinine 14/0.9. Sodium 131, calcium 8.2. Lites normal otherwise. Hemoglobin/hematocrit 8.6/26.8. WBC 4.2. Platelet 57. December 25, 2020. BUN/creatinine 19/1.0. So dium 135. Lites normal otherwise. AST elevated 42, ALT normal. Hemoglobin/hematocrit 9.3/30. WBC normal, platelets 68. TSH elevated 5.68. Troponin less than 0.06x1. April 13, 2020. BUN/creatinine 21/1.0. Potassium 5.3. Lites normal otherwise. Albumin low 3.3, total protein normal. AST/ALT normal. Hemoglobin/hematocrit 11.0/33.9. WBC 3.5. Platelet 51. April 03, 2020. Ferritin normal 37. TSH low 0.06. January 27, 2020. proBNP 227. Folate normal greater than 17. Hemoglobin/hematocrit 10.5/32, platelet 92, WBC normal. November 25, 2019. Free T4 normal 1.48. BUN/c reatinine 25/1.3. Lites normal. Albumin low 3.1. August 17, 2019. Occult blood negative . Medications: Carvedilol 6.25 mg daily, a spirin 81 mg daily, HCTZ 25 mg daily, spironolactone 25 mg daily Trulicity, probiotic, omeprazole, nystat in, Metformin, magnesium, levothyroxine, hydroxyzine, have a Kirstin, folate, co-Q10, cinnamon Exam: Blood pressure: 131/68 Heart rate: 73 Oxygen saturation: 97% Weight: 217 pounds, 204 pounds General: Patient alert oriented appropri ate conversant. HEENT: JVP 7 cm sitting. Not appreciated bruit Heart: Regular rate and rhythm, distant, 1?2/6 systolic murmur left sternal border. Lungs: Clear to auscultation bilaterally . Abdomen: Soft. Nontender. No sacral hardeep a. Extremities: 1+ lower extremity edema bi laterally. Assessment: 1. Arctic stenosis. May 02, 2016. Aortic valve trileafle t. Mild aortic stenosis. Valve area 1.8 cm?. Peak velocity 2.3 m/s. Mean gradient 10.5 mmHg. DOI 0.6. January 12, 2019. Aortic valve trileaflet. M ild aortic stenosis. Valve area 1.3 cm?. Peak velocity 2.8 m/s. Mean gradient 14.8 mmHg. DOI 0.46. June 14, 2020. Aortic valve trileafle t. Mild aortic stenosis: Aortic valve area 1.3 cm?. Peak velocity 2.5 m/s mean gradient 11 mmHg. DOI 0.41 Repeat echo June 2022. 2. Heart failure. 2019 echo: Indeterminant diastolic indic es. She is not describing any symptoms consi stent with decompensated CHF, although her baseline aerobic functionality is minimal. Maintained on HCTZ, beta-larry and spi ronolactone. 3. Hypertension. Today, January 01, 2021, sodium is a bit lo w, 131. Concerned about hydrochlorothiazide. We will stop hydrochlorothiazide, start amlodipine 5 mg daily. We will recheck blood work 2 weeks: Lite s BUN/creatinine CBC. We will contact her with results. 4. Hyperkalemia. Normal potassium December 2020. 5. Left bundle branch block. Noted on EKGs intermittently from 2017 o n. She has good systolic function demonstra taylor on echo most recently 2018. MPI June 2020: Negative ischemia. 6. Thrombocytopenia. Thank you for allowing me to participate in this patient's care. Sincerely, Kee Pal MD, [facility] Disposition: We will see her back in 12 months Time: 20-minute [id number] interview w ith patient and patient's . 10- minute chart review development completion 1. Hyponatremia ? renal function panel, seru m 2. Thrombocytopenic disorder ? CBC w/ auto diff Discussion Note: None recorded.Patient educational handouts: No information available. Plan of Care Reminders Provider Appointments Follow up 03/28/2021 Karla Villalobos 40 2:00PM SAVI Holliday ? Follow up on or around Dariusz Escalante 01/01/2022 MD Demarco ? Return to on or around Fransico Larson, Office 06/06/2024 Lab Renal 01/01/2021 [facility] ry Function Panel, Serum Hospital L [facility] (Internal) ? CBC W/ Auto 01/01/2021 [facility] Lab (Internal) Referral None ? ? recorded. Procedures None ? ? recorded. Surgeries None ? ? recorded. Imaging None ? ? recorded. Medications Name Start Date ? ? amlodipine 5 mg tablet 01/02/2021 1 (one) Tablet: daily aspirin 81 mg chewable tablet 12/29/2020 Chew 1 tablet every day by oral route. [place]ave Montes U-100 Insulin 100 unit/mL (3 mL) subc utaneous 12/29/2020 Inject 18 units every day by subcutaneous route in th e evening. Blood Glucose Test strips ? Take 1 strip twice a day by miscell. route. carvedilol 6.25 mg tablet 12/29/2020 1 tablet every day by oral route. cyanocobalamin (vit B-12) 500 mcg chewable tablet 12/06 Take 1 tablet every day by oral route for 30 days. ferrous sulfate 324 mg (65 mg iron) tablet,delayed rel ease 12/29/2020 Take 2 tablets 3 times a week by oral route. Florastor 250 mg capsule 12/29/2020 Take 1 capsule every day by oral route. folic acid 1 mg tablet ? TAKE 1 TABLET BY MOUTH DAILY hydroxyzine HCl 10 mg tablet 12/29/2020 Take 1 tablet twice a day by oral route as needed. lactulose 10 gram/15 mL oral solution 01/18/2021 Take 15 mL every day by oral route. levothyroxine 100 mcg tablet ? Take 1 tablet every day by oral route for 90 days. metformin ER 500 mg tablet,extended release 24 hr ? TAKE 1 TABLET BY MOUTH DAILY Miralax 17 gram/dose oral powder 12/29/2020 Take 17 g twice a day by oral route as needed. nystatin 100,000 unit/gram topical cream 12/29/2020 Apply 1 application twice a day by topical route. omeprazole 40 mg capsule,delayed release 12/29/2020 Take 1 capsule every day by oral route. oxycodone 5 mg tablet ? Take 1 tablet every 6 hours by oral route for 28 days . spironolactone 25 mg tablet ? TAKE 1 TABLET BY MOUTH DAILY Trulicity 1.5 mg/0.5 mL subcutaneous pen injector 12/06 0.5 mL every week by sub-q route. Notes: med rec 12/25/20 wmd Medications Administered None recorded. Vitals Height Weight BMI Blood Pressure 5 ft 2.25 in 217 kg 86.8 kg/m2 131/68 mm[Hg] Results Lab Results Date Name Specimen Result Interpretation Description Value Range Status Address ? 01/15/2021 CBC W/ BLD Low Wbc 4.3 5.0-10.0 Final [facility] Auto 10*3/uL 10*3/uL Hospital Lab Diff (Internal) : [address] ? ? BLD Low Rbc 2.90 4.10-5.30 [facility] Lab (Internal) : [address] ? ? BLD Low Hgb 9.5 g/dL 12.0-16.[address] [facility] g/dL Hospital L ab (Internal) : [address] ? ? BLD Low Hct 29.5 % 37.0-47.0 Final [facility] Hospital L ab (Internal) : [address] ? ? BLD High Mcv 101.7 fL 80.0-96.0 Final [facility] Hospital L ab (Internal) : [address] ? ? BLD High Mch 32.8 pg 26.0-32.[address] [facility] pg Hospital L ab (Internal) : [address] ? ? BLD ? Mchc 32.2 g/dL 31.0-35.0 Final [facility] g/dL Hospital L ab (Internal) : [address] ? ? BLD ? Rdw 13.8 % 11.5-14.5 Final [facility] Hospital L ab (Internal) : [address] ? ? BLD Low Plt 61 10*3/uL 130-[address] [facility] 10*3/uL Hospital Lab (Internal) : [address] ? ? BLD ? Anc 2.60 ? Final [facility] try 10*3/uL Hospital Lab (Internal) : [address] ? ? BLD ? Nlr 2.80 0.00-3.20 Final [facility] Hospital L ab (Internal) : [address] ? ? BLD ? Neutro 60.5 % 40.0-75.0 Final [facility] Hospital L ab (Internal) : [address] ? ? BLD ? Lymph 21.6 % 20.0-50.0 Final [facility] Hospital L ab (Internal) : [address] ? ? BLD High [place] 10.9 % 2.0-10.0 % Final [facility] L ab (Internal) : [address] ? ? BLD ? Eos 5.1 % 1.0-6.0 % Final [facility] L ab (Internal) : [address] ? ? BLD High Baso 1.2 % 0.0-1.0 % Final [facility] L ab (Internal) : [address] ? ? BLD ? Ig 0.7 % 0.0-0.9 % Final [facility] L ab (Internal) : [address] Allergies Code Code System Name Reaction Severity Onset 2670 RxNorm Codeine ? ? 11/17/2017 35893 RxNorm Lisinopril Cough ? 11/17/2017 435839 RxNorm Vicodin Edema ? 11/17/2017 5489 RxNorm Hydrocodone Edema ? ? 51134 RxNorm Tramadol Diarrhea ? ? Notes: no seafood or contrast al lergy Problems Name Status Onset Date Source ? Left Sided Cerebral Hemisphere Active 01/29/2019 ? Cerebrovascular Accident Congestive Heart Failure Active 04/05/2019 ? Cirrhosis - Non-alcoholic Active 05/12/2019 ? Type II Diabetes Mellitus Uncontrolled Active 9 ? Acute Nontraumatic Kidney Injury Active 08/01/2019 ? Osteoarthritis of Knee Active 12/06/2019 ? Total Knee Replacement Active 11/16/2020 ? Obesity Active 11/21/2020 ? Hepatic Encephalopathy Active 12/26/2020 ? Urinary Tract Infectious Disease Active 12/26/2020 ? Asthenia Active 12/26/2020 ? Non-alcoholic Fatty Liver Active 12/29/2020 ? Acute Urinary Tract Infection Active 12/29/2020 ? Hypothyroidism Active ? History Disorder of Nervous System Due to Type Active ? History 2 Diabetes Mellitus Hypokalemia Active ? History Iron Deficiency Anemia Active ? History Thrombocytopenic Disorder Active ? Histor y Hypertensive Disorder Active ? 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 History Phlebosclerosis Active ? History Gastrointestinal Hemorrhage Active ? Hist ory Idiopathic Osteoarthritis Active ? Histor y Lumbosacral Radiculopathy Active ? Histor y Dupuytren's Disease of Palm Active ? Hist ory Ascites Active ? History Procedures Date Name Performed by ? 11/16/2020 [...] Notes: L2-L5 laminectomy with bilater al microforaminectomy Vaccine List Vaccine Type COVID-19, mRNA, LNP-S, PF, 30 mcg/0.3 mL dose 09/18/2020 10/09/2020 influenza, high dose seasonal 03/24/2017?0.5 mL influenza, high-dose, quadrivalent 04/03/2020?0.7 mL influenza, seasonal, injectable 03/27/2009 04/27/2010?0.5 mL 03/27/2011 04/19/2015 influenza, seasonal, injectable, preserv ative free 05/25/2009?0.5 mL 04/10/2012?0.5 mL 03/31/2013?0.5 mL 04/15/2014?0.5 mL influenza, trivalent, adjuvanted 04/05/2019?0.5 mL novel [id number], all formulation s 08/01/2009 pneumococcal conjugate PCV 13 06/01/2018?0.5 mL pneumococcal polysaccharide PPV23 09/06/2009 Tdap 09/06/2009 Social History Tobacco Smoking Status Never Smoker Do you have difficulty walking Y Notes: uses rolling or climbing stairs? 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 N Are you blind or do you have N difficulty seeing? What is your code status? 0 How much tobacco do you chew? none What was the date of your most 02/12/2021 recent tobacco screening? Do you or have you ever used Never used electronic e-cigarettes or vape? cigarettes Do you have an advanced Y directive? Do you use any illicit or N recreational drugs? Live alone or with others? with others Notes: hus band What is your level of alcohol None consumption? Which of your hands is Right dominant? Hard of hearing or deaf in one N or both ears? Are you passively exposed to N smoke? What is your level of caffeine Moderate Notes: coffee 1 cup per consumption? day Family History Relation Problem Onset Age of Age Notes Sister Family history of (No N/A Breast cancer Information) Sister Diabetes mellitus (No N/A (No Notes) Information) Mother Family history of (No N/A (No Notes) cancer Information) Mother Osteoporosis (No N/A (No Notes) Information) Father Heart disease (No N/A (No Notes) Information) Daughter Cystic fibrosis (No N/A Leeann- i n Information) 1999 Daughter Cystic fibrosis (No N/A Cristy- i n Information) 2015 Unspecified Relation Diabetes mellitus (No N/A Ch ild Information) Functional Status Do you have difficulty Yes walking or climbing stairs?? Past Encounters 01/01/2021 Hyponatremia; Thrombocytopenic Disorder Kee Pal MD: [address] [facility] [place] [address], Ph. History of Present Illness None recorded. Review of Systems None recorded. Physical Exam None recorded.
--- OUTSIDE RECORDS SUMMARY | 2021-03-27 00:47 | XMS_ITS | Encounter Summary ---
:1935 Author Care Team Providers Name Role Phone Karla Holliday Primary Care Provider [phone] Kee Pal MD Seo Associate [phone] Cristy Alfaro, principal planner Unavailable Shaun Angelo MD General Surgeon [phone] Fransico Larson MD General Surgeon [phone] Reason for Visit [facility] Home, New Admit H & P Assessment and Plan Assessment Note CODE STATUS: FULL CODE (Jehovah wit ness/do not transfuse) 1. Type II diabetes mellitus unc ontrolled Continue with current insulin regimen and Metformin. Will continue to monitor blood sugars and adjust insulin accordingly. 2. Loose stool Secondary to lactulose. 3. History of total knee arthrop lasty /Right knee: Since initially d [facility] on 12[facility]09[facility]2020 has had follow-up with her orthopedic surgeon, Aspen Renee MD on 12/20/2020. Per records x-ray showed good alignment. Recommended continue working with PT and OT. She is weightbearing as tolerated. Continue wit h current pain management. 4. Anemia following acute postop erative blood loss As mentioned above, resident i s a Jehovah witness and does not wish any transfusion. Her hemogram today, 021 showed a hemoglobin of 9.5. Continue with iron supplementation and PPI. We will co ntinue to monitor hemogram. 5. Nonalcoholic steatohepatitis Continue with lactulose. As me ntioned above her ammonia level on 12/24/2020 came down to 28. Continue to monitor. 6. Essential hypertension Blood pressure has been well c ontrolled with systolic of mostly in the 110-140 range and diastolic in the 50-80 range. Continue with current cardiac regimen. 7. Urinary tract infectious dise ase Resolved. Completed course of Cefpodoxime. Discussion Note: None recorded.Patient educational handouts: No information available. Plan of Care Reminders Provider Appointments Follow up 03/28/2021 Karla Wilfredo 40 2:00PM SAVI Holliday ? Follow up on or around Dariusz Epps 30 01/01/2022 MD Demarco ? Return to on or around Fransico Larson MD Office 06/06/2024 Lab None ? ? recorded. Referral None ? ? recorded. Procedures None ? ? recorded. Surgeries None ? ? recorded. Imaging None ? ? recorded. Medications Name Start Date ? ? amlodipine 5 mg tablet 01/02/2021 1 (one) Tablet: daily aspirin 81 mg chewable tablet 12/29/2020 Chew 1 tablet every day by oral route. Basaglar KwikPen U-100 Insulin 100 unit/mL (3 mL) subc [...] BMI Blood Pressure 5 ft 2.25 in 210 lbs 5 oz 38.2 kg/m2 122/62 mm[Hg] Results Lab Results None recorded. Allergies Code Code System Name Reaction Severity Onset 2670 RxNorm Codeine ? ? 11/17/2017 88612 RxNorm Lisinopril Cough ? 11/17/2017 901112 RxNorm Vicodin Edema ? 11/17/2017 5489 RxNorm Hydrocodone Edema ? ? 61173 RxNorm Tramadol Diarrhea ? ? Notes: no [...] mL influenza, trivalent, adjuvanted 04/05/2019?0.5 mL novel [id number], all formulation s 08/01/2009 pneumococcal conjugate PCV 13 06/01/2018?0.5 mL pneumococcal polysaccharide PPV23 09/06/2009 Tdap 09/06/2009 Social History Tobacco Smoking Status Never Smoker Do you have difficulty walking Y Notes: uses rolling or climbing stairs? 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 N Are [...] fibrosis (No N/A Cristy- i n Information) 2014 Unspecified Relation Diabetes mellitus (No N/A Ch ild Information) Functional Status Do you have difficulty Yes walking or climbing stairs?? Past Encounters 01/15/2021 Type II Diabetes Mellitus Uncontrolled; Loose Stool; History of Total Knee Arthroplasty; Anemia Following Acute Postoperative Blood Loss; Nonalcoholic Steatohepatitis; Essential Hypertension; Urinary Tract Infectious Disease Gracia Teixeira MD: [address] [place] [address], Ph. 01/01/2021 Hyponatremia; Thrombocytopenic Disorder Kee Pal MD: [address] [place] [address], Ph. History of Present Illness Note: <p>Lucretia is 85-year-old female with past medical history for hypothyroidism, hypertension, diabetes mellitus type 2, iron deficiency anemia, history of pulmonary embolism, osteoarthritis and nonalcoholic cirrhosis who I am seeing for a new admit H&P.</p><p>
&l t;/p><p>Resident was previously at [facility] in November following a right total knee arthroplasty. Per previous HPI, resident underwent elective right total knee arthroplasty on 11/16/2020 at [facility] by Dr. Donell Renee.</p><p>As per records, there were no significant post-op complications other than blood loss with a discharge hemoglobin of 7.6. Resident is a Jehovah witness and requested noblood transfusions.
</p><p>She was transferred to [facility] on 11/20/2020 for rehabilitation.
</p><p>She worked with PT and OT. Was once again ambulating short distances with a roller walker. She was using 1-2 oxycodones daily for pain management. She wasdischarged home per 's wishes on 12/09/2020 with home health.
</p><p>< br></p><p>On 12/25/2020, resident returned to [facility] ED with increased weakness. stated unable to care for her. She was found to have a urinary tract infection and elevated ammonia level secondary to MORALES. She was readmitted to [facility] with a diagnosis of urinary tract infection, hepatic encephalopathy & MORALES. She was treated with IV Rocephin and lactulose.
</p><p>Was [facility] 12/29/2020 for further rehabilitation.
</p><p>
</p><p>[facility] been doing well. Her weakness and confusion has improved with ammonia and treatment of her urinary tract infection.
</p><p>Her most recent ammonia level on 01/01/2021 was 28. Her kidney function was good with BUN/creatinine of 14/0.9 and electrolytes within normal range exceptfor slight decrease in sodium of 134.
</p><p>Her hydrochlorothiazide was discontinued. She is due for repeat labs on 01/16/2021
</p><p>
</p><p> Her appetite is good. No nausea or emesis. No abdominal pain/cramping and moving her bowels regularly, however have been loose since on lactulose.
</p><p>
</p> Review of Systems ? Notes: ROS (As per staff and reside nt):
Gen: Afebrile
HEENT: no headache, sinus or ear pain
CVS: No chest pain or palpitations
Resp: No sore throat, increased cough or shortness of breath
GI: See above
: No dysuria. Adequate urine output
MSK : Does complain, on and off, of knee pain.
Neuro: Mild cogniti ve deficit.
Psych: No significant behaviors
Heme: No recent nosebleed, hematuria, hemoptysis or gross blood in stool Physical Exam ? Notes: <p>Physical Exam:
Gen: Pa tient resting comfortably in no acute distress
Eyes: no conjunc tival pallor, no scleral icterus
ENT: MMM
Lungs: Clear to auscu ltation
CVS: RRR with II/ systolic murmur.</p><p>ABD: Soft, non -tender, +BS
MSK: Moves all extremities.
Skin: no jaundice or pal phuong
Neuro: Awake and presently somewhat oriented X 3
EXT: Adequat e perfusion, RLE 1+ edema.
Psych: calm & cooperative</p>
--- OUTSIDE RECORDS SUMMARY | 2021-03-27 00:47 | XMS_ITS | Encounter Summary ---
:1935 Author Care Team Providers Name Role Phone Karla Holliday Primary Care Provider [phone] Kee Pal MD Activity Aid [phone] Cristy Alfaro, video game developer Unavailable Shaun Angelo MD General Surgeon [phone] Fransico Larson MD General Surgeon [phone] Reason for Visit chronic pain management; Discharge D/C from [facility] 01/22/21 home with skil led nursing, physical therapy, occupational therapy and home health aides. Assessment and Plan 1. Medication monitoring ? Benefits and Risks for Wade atment with Opioids ? Informed Consent Opiate Pr escribing 2. Type II diabetes mellitus unc ontrolled 04/03/2020 She had 128 glucose on 04/03/2020 morning. She had some ~ 238 about 2 hrs after a meal. 07/03/2020 STABLE Patient's FBS are abou t 130- 140. One hour after a meal = 180 -220 A1C is 7. She is struggling with pain and limitations on walking due to knee. She will see Dr. Pal tomorrow to discuss cardiology clearance for Right TKR. 02/12 Uncontrolled at last check Sep per chart from [facility]. Patient remains in pain after recent TKR at [facility]: Dr. Renee plans to get a CT Scan of the knee at [facility]. The pain might be driving elevated glucose but we will await labs. 3. Lumbosacral radiculopathy 02/12/2021 Worsening. All of her pain control is poor (recent TKR on right). 4. Hypothyroidism 07/03/2020 Worsening. Has risk as surgery is possibility. TSH is suppressed but free T4 is normal. She was in normal range in November 2020. We will see how she is feeling and possibly pull the Synthroid down. 09/25/2020 Pulled Synthroid to 75 mcg fro m 100mcg. There is a TSH already ordered. 02/12/2021. She didn't do as well on the 7 5mcg. I told them that we would keep it at 100 mcg even if we are suppressing the TSH since patient feels horrible. ? levothyroxine 100 mcg tabl et Discussion Note: None recorded. Plan of Care Reminders Provider Appointments Follow [...] BMI Blood Pressure 5 ft 2.25 in 206 lbs 8 oz 37.5 kg/m2 118/58 mm[Hg] Results Lab Results None recorded. Allergies Code Code System Name Reaction Severity Onset 2670 RxNorm Codeine ? ? 11/17/2017 54477 RxNorm Lisinopril Cough ? 11/17/2017 122981 RxNorm Vicodin Edema ? 11/17/2017 5489 RxNorm Hydrocodone Edema ? ? 33447 RxNorm Tramadol Diarrhea ? ? Notes: no [...] mL influenza, trivalent, adjuvanted 04/05/2019?0.5 mL novel [id number], all formulation s 08/01/2009 pneumococcal conjugate PCV 13 06/01/2018?0.5 mL pneumococcal polysaccharide PPV23 09/06/2009 Tdap 09/06/2009 Social History Tobacco Smoking Status Never Smoker Do you have difficulty walking Y Notes: uses rolling or climbing stairs? 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 N Are [...] use any illicit or N recreational drugs? Which of your hands is Right dominant? What is your level of alcohol None consumption? Live alone or with others? with others Notes: hus band Are you passively exposed to N smoke? Hard of hearing or deaf in one N or both ears? What is your level of caffeine Moderate [...] Yes walking or climbing stairs?? Past Encounters 02/12/2021 Medication Monitoring; Type II Diabetes Mellitus Uncontrolled; Lumbosacral Radiculopathy; Hypothyroidism MUSTAP[facility]: [address] [place] [phone], Ph. 01/15/2021 Type II Diabetes Mellitus Uncontrolled; Loose Stool; History of Total Knee Arthroplasty; Anemia Following Acute Postoperative Blood Loss; Nonalcoholic Steatohepatitis; Essential Hypertension; Urinary Tract Infectious Disease Gracia Teixeira MD: [address] [place] [phone], Ph. History of Present Illness ? Cirrhosis Reported By: Patient Notes: Last ammonia level 32 on 01/04 09/24.<div>No increased abdominal fluid , no yellowing of the skin patien t denies abdominal pain.</div> ? Chronic Pain Follow-up Reported By: Patient HPI: Analgesia: taking pain medic ation, percentage of pain relief: 50 %. Pain Severity: average pain: 6/10 . ADL Improvements: sleep patterns undisturbed. Adverse Reactio ns: no nausea, no vomiting Notes: <table><tbody><tr><th>Date</ ><th>Med
Calc</th><th></th><th>VPMS
Check</th><th></th><th>C onc.
Benzos</th><th></th><th>Nalo xone</th><th></th><th>Date Agree
Signed</th><th></th><th>Last
UDT</th><th></th><th>Func Assess
Tool</th><th></th><th>OR T
Score</th><th></th><th>COMM
Score</th></tr><tr><td>0 02/12/2021</td><td>45</td><td></td><td>02/12/21 </td><td></td><td>no</td><td ></td><td>no</td><td></td><td>02/12/21</td> <td></td><td></td><td></t d><td></td><td></td><td></td><td></td>< td></td><td></td></tr><tr><t d>____</td><td></td><td></td><td></td><td></ td><td></td><td></td><td> </td><td></td><td></td><td></td><td></td> <td></td><td></td><td></td>< td></td><td></td><td></td><td></td></tr><tr> <td>____</td><td></td><td ></td><td></td><td></td><td></td><td></td><t d></td><td></td><td></td><td ></td><td></td><td></td><td></td><td></td><t d></td><td></td><td></td><td ></td></tr><tr><td>____</td><td></td><td> </td><td></td><td></td><td>< /td><td></td><td></td><td></td><td></td>< td></td><td></td><td></td><t d></td><td></td><td></td><td></td><td></t d><td></td></tr><tr><td>_ ___</td><td></td><td></td><td></td><td></td> <td></td><td></td><td></td>< td></td><td></td><td></td><td></td><td></ td><td></td><td></td><td> </td><td></td><td></td><td></td></tr><tr><td >____</td><td></td><td></td> <td></td><td></td><td></td><td></td><td>< /td><td></td><td></td><td></ td><td></td><td></td><td></td><td></td><t d></td><td></td><td></td><td ></td></tr><tr><td>____</td><td></td><td> </td><td></td><td></td><td>< /td><td></td><td></td><td></td><td></td><td> </td><td></td><td></td><td>< /td><td></td><td></td><td></td><td></td><td> </td></tr><tr><td>____</td&g t;<td></td><td></td><td></td><td></td><td></ td><td></td><td></td><td></t d><td></td><td></td><td></td><td></td><td ></td><td></td><td></td>< td></td><td></td><td><table></table></td> </tr></tbody></table> ? Diabetes F/U Reported By: Patient HPI: Review finger sticks: fastin s, post dinner: 130-225. Labs: last A1C result: 6,9 on 09/28/20 Notes: Patient denies any dizziness , lightheadedness or increased thirst. Note: 02/12/21: Patient is here to see the provider for a discharge visit from [facility] level 1 to home on 01/22/21 with home health services. Services provided by home health: longterm, physical therapy, occupational therapy and home health aides.<div>Medications updated in chart from discharge paper work for [facility]. </div><div>Patient is homebound and leaving home requires a taxing effort. Patient was discharged with 15 days of pain medication of Oxycodone 5 mg tablet take (1/2-1) tab PO every 4 hours as needed for pain.</div><div>Oxycodone left :last night</div><div>Last dosage of oxycodone: 3 left will need re filled</div><div>Patient unable to leave a urine today.</div>

<p>
</p>Review of Systems: ROS as noted in the HPI Review of Systems None recorded. Physical Exam ? Comprehensive PE (female) Reported By: Patient Constitutional: General Appearance: overweig ht; 02/12/2021 looks exhausted. Pain is bad in the right knee. Level of Distress: moderate distress. Ambulation: in wheelchair Head: Head: normocephalic, atrauma tic Eyes: Pupils & Irises: PERRLA: bot h. Extraocular Movement: intact left eye, intact right eye. Scler ae: non-icteric: both. Vision: acuity grossly intact Neck: Neck: supple. Thyroid: no en largement Respiratory: Respiratory effort: unlabore d respirations, no use of accessory muscles. Percussion: no dull ness, flatness, or hyperresonance. RUL Auscultation: breath sounds normal, good air movement, no wheezing, no rales/crackles, no rhonch i Cardiovascular: Apical Impulse: not displace d. Heart Auscultation: regular rate and rhythm (RRR), normal S1, nor mal S2, no gallops, systolic murmur. Neck vessels: carotid bruit. Pulses including femoral / pedal: ; Has pedal pulses. Toes, fee t are not swollen. 12/06/2019 Right leg is somewhat swollen: tender on the ant-lat knee/upper cardona. + tenderness in post. knee Gastrointestinal: Inspection and Palpation: no guarding, no masses, no costovertebral angle (CVA) tenderness: bila teral. Liver: non-tender; 09/25/2020 Can't find liver edge. She h as very protuberant abdomen. Spleen: non-tender, no splenomegaly. Hernia: none palpable Musculoskeletal:: Gait and Station: irregular gait. Motor Strength and Tone: normal tone. Joints, Bones, and Mus cles: no contractures, no tenderness, limited range of motion, bon y deformity. Extremities: edema; 02/12/2021 RIGHT calf and righ t ankle are larger than left. RIGHT KNEE scar from recent TKR is fine but the knee is large & tenderness severe; no signs of infection but poor RoM. No extreme tenderness in left post thig h or left knee. Homens does NOT cause pain on the right. Thoracolu mbar Appearance: kyphosis. Inspection and Palpation: no cyanosis, no clubbing, symmetrical Skin: Inspection and palpation: no jaundice; Patient needs urinary incontinence briefs to prote ct integrity of skin due to wetness. Nails: normal Neurologic: Orientation: oriented to per son, place, time and situation. Memory: recent memory normal, remote memory normal. Cranial Nerves: 2-12 grossly intact. Sensation: g rossly intact, monofilament test abnormal. Coordination and C erebellum: ; Motor testing 3-4 out of 5 strength on the right upper and lower extremity with hemiparesis status post left thalamic CV A Psychiatric: Insight: good insight, good judgment. Mental Status: normal mood, normal affect Notes: <p>Patient needs urinary inc ontinence briefs to protect integrity of skin due to wetness.</p>
--- NOTE | 2021-03-27 11:55 | DI.MRI_ITS ---
Exam(s) MR LOWER JOINT RT WO EXAM: MR LOWER JOINT RT WO CLINICAL HISTORY: S/P KNEE ARTHROPLASTY,RT KNEE WEAKNESS,PAIN,? QUAD TENDON RUPTURE. TECHNIQUE: Multiplanar multisequence MRI was performed. COMPARISON: CR XR KNEE STANDING ALIGNMENT AP LAT SKYLINE RIGHT from 12/20/2020 CR XR KNEE STANDING ALIGNMENT AP LAT SKYLINE RIGHT from 12/20/[address] LOWER EXTREMITY RT WO from 02/23/[address] LOWER EXTREMITY RT WO from 02/23/2021 FINDINGS: The examination is limited due to patient motion artifact. BONES: There is no fracture or contusion pattern. The patient has a right total knee arthroplasty whi ch causes artifact. JOINTS: Articular cartilage is unremarkable. No effusion is present. TENDONS: Extensor mechanism: There does appear to be a partial tear through the medial aspect of the extensor tendon 4 cm above the patella. Medial retinaculum: Unremarkable. Lateral retinaculum: Unremarkable. MUSCLES: There is diffuse moderate muscular atrophy. SOFT TISSUES: There is edema in the soft tissues around the knee. Note is made of a small popliteal cyst. No other focal fluid collection is identified. LIGAMENTS: Medial Collateral:Unremarkable. Lateral Collateral: Unremarkable. OTHER: IMPRESSION: 1. Examination limited by patient motion and artifact from the patient's total knee replacement. 2. Findings suspicious for partial tear of the medial aspect of the extensor tendon 4 cm above the pa tella. 3. Edema in the soft tissues around the knee. 4. Moderate diffuse muscular atrophy. DATA REPOSITORY:
== END 2021-03-27 01:02 ==
PROVIDERS: PCP Family Medicine; Visit Provider Orthopaedic Surgery
DX: Z96.651 Presence of right artificial knee joint (principal); R60.0 Localized edema; M62.561 Muscle wasting and atrophy, not elsewhere classified, right lower leg
CPT/HCPCS: 73721

== ENCOUNTER → 2021-08-30 10:44 | Outpatient (BNVA) | payer MEDICARE, BC, MEDICAID, SELFPAY | PROVIDERS: PCP Family Medicine; Referring Provider Family Medicine; Visit Provider Student in an Organized Health Care Education/Training Program | DX: S76.111A Strain of right quadriceps muscle, fascia and tendon, initial encounter (principal); X19.XXXA Contact with other heat and hot substances, initial encounter; T84.022A Instability of internal right knee prosthesis, initial encounter; T84.84XA Pain due to internal orthopedic prosthetic devices, implants and grafts, initial encounter; Z96.651 Presence of right artificial knee joint | CPT/HCPCS: 99203 ==